=== PATIENT | male | born 1945 | race Caucasian/White ===

== ENCOUNTER 2016-03-23 12:00 | Inpatient (IN) | payer MEDICARE, OTHER ==
[2016-06-22] MEDS ORDERED: Sodium Chloride 0.9% 10 ML Syringe FLUSH PRN (07:00)
[2016-06-22] MEDS ORDERED: Lidocaine 1%/Sod Bicarbonate in NS 8.4% 1 ML Syringe IV PRN (07:00)
[2016-06-22] MEDS ORDERED: Propofol 200 MG/20 ML SDV ONE ×3 (10:26→14:21)
--- NOTE | 2016-06-22 10:47 | PCM.PREANE ---
Preanesthetic Assessment - ANESTHESIA/TRANSFUSION/FAMILY HX Anesthesia/Transfusion History: No Prior Transfusion(s), Prior Anesthesia Type of Anesthesia Reaction: Reports: Other (see below) (severe constipation noted with cystoscopy along with decreased sat's, and pruitis with narcotics.) Family History of Anesthesia Reaction: No Intubation History: Unknown - REVIEW OF SYSTEMS Constitutional: Reports: no symptoms ARTISTS' MODEL: Reports: no symptoms (Lower spine surgery noted.(L1-S1) back.), numbness ( paresthesia's noted to bilateral feet.) Respiratory: Reports: no symptoms (1975 quit smoking.) Cardiovascular: Reports: no symptoms GI: Reports: no symptoms (GERD), difficulty swallowing (Lots of liquids needed with food ingestion.) Other: Reports: none (History of bladder CA, February 2016 cystoscopy/history of left kidney nephrosis, currently cleared by Dr. Martinez.), anxiety (with surgery.) - PHYSICAL ASSESSMENT HR: 66 O2 Sat by Pulse Oximetry: 94 RR: 16 BP: 120/96 Temp: 36.8 C Height: 1.75 m Weight: 108.862 kg NPO Status Date: 06/21/16 NPO Status Time: 21:00 ASA Class: 2 Mental Status: alert & oriented x3 Airway Class: Mallampati = 2 Dentition: Reports: normal dentition, crown(s) (Loose crown noted per patient on upper right.), caries Thyro-Mental Finger Breadths: 3 Mouth Opening Finger Breadths: 3 ROM/Head Extension: full Respiratory Status: lungs clear to auscultation bilaterally Cardiovascular Status: regular rate & rhythm, normal S1, S2, no murmur, blood pressure WNL - LAB Values: Reviewed and noted. - IMAGING/EKG Impressions: EKG: Sinus rhythm with abnormal R-wave progression. CXR: Negative chest except opacity of right mid lung noted. - ALLERGIES Allergies/Adverse Reactions: Allergies Allergy/AdvReac Type Severity Reaction Status Date / Time No Known Allergies Allergy Verified 06/19/16 10:35 - ANESTHESIA PLAN Preop Beta Madelyn: No Anesthesia Type Planned: spinal - ACKNOWLEDGEMENTS Pt an appropriate candidate for the planned anesthesia: Yes Alternatives and risks of anesthesia discussed w pt/guardian: Yes Pt/Guardian understands and agree with anesthesia plan: Yes PreAnesthesia Questionnaire HEENT History: Reports: Hard of hearing, Impaired vision Other HEENT History: wears glasses Musculoskeletal History: Reports: Arthritis Psychiatric History: Reports: PTSD Oncologic (Cancer) History: Reports: Bladder - Infectious Disease History Infectious Disease History: Reports: Chicken pox - Past Surgical History GI Surgical History: Reports: Colonoscopy Musculoskeletal Surgical History: Reports: Shoulder replacement, Other (see below) Other Musculoskeletal Surgeries/Procedures:: back surgery - SUBSTANCE USE Smoking Status *Q: Former Smoker Tobacco Use Within Last Twelve Months: No Second Hand Smoke Exposure: No Days Per Week of Alcohol Use: 3 Recreational Drug Use History: No - HOME MEDS Home Medications: Home Meds Aspirin 81 mg PO DAILY 06/19/16 [History] Fish Oil/[place]-3 Fatty Acids [Fish Oil 1,000 MG] 1 gm PO DAILY 06/19/16 [History ] Glucosamine [Glucosamine Sulfate] 1 cap PO DAILY 06/19/16 [History] Lutein/Minerals/Vit A,C & E [Ocuvite] 1 tab PO DAILY 06/19/16 [History] Multivitamins/Minerals [Vitamins and Minerals] 1 tab PO DAILY 06/19/16 [History] - CURRENT (IN HOUSE) MEDS Current Meds: Current Medications Morphine Sulfate 8 mg/Epinephrine HCl 0.3 mg/Cefuroxime Sodium 750 mg/Ketorolac Tromethamine 30 mg/Sodium Chloride 27.9 ml 0 mg .XX ONETIME ONE Stop: 06/22/16 12:01 Lactated Ringer's (Ringers, Lactated) 1,000 mls @ 125 mls/hr IV ASDIRECTED ANGY Lidocaine/Sodium Bicarbonate (Buffered Lidocaine 1% In Ns 8.4%) 0.25 ml IV ONETIME PRN PRN Reason: Prior to IV Start Sodium Chloride (Saline Flush) 10 ml FLUSH ASDIRECTED PRN PRN Reason: Keep Vein Open Discontinued Medications Propofol (Diprivan 20 Ml) Confirm Administered Dose 200 mg .ROUTE .STK-MED ONE Stop: 06/22/16 10:27
[2016-06-22] MEDS: Lactated Ringers 1,000 ML IV SCH ×2 (10:50→15:50)
[2016-06-22] MEDS ORDERED: ceFAZolin 1 GM Vial ONE ×2 (11:18→11:19)
[2016-06-22] MEDS ORDERED: Morphine PF 10 MG/10 ML SDV ONE (11:18)
[2016-06-22] MEDS ORDERED: Iodine/Sodium Iodide 2% Tincture 30 ML Bottle ONE (11:23)
[2016-06-22] MEDS ORDERED: Midazolam 1 MG/ML 2 ML SDV ONE (12:45)
[2016-06-22] MEDS ORDERED: Ondansetron 4 MG/2 ML SDV ONE ×2 (13:13→14:59)
[2016-06-22] MEDS ORDERED: diphenhydrAMINE 50 MG/ML SDV IVPUSH PRN (13:45)
[2016-06-22] MEDS ORDERED: ePHEDrine 50 MG/ML SDV IVPUSH PRN (13:45)
[2016-06-22] MEDS ORDERED: Ondansetron 4 MG/2 ML SDV IVPUSH PRN ×2 (13:45→15:59)
[2016-06-22] MEDS ORDERED: Lactated Ringers 1,000 ML ONE ×2 (13:53→15:01)
[2016-06-22] MEDS: Bupivacaine 0.25% 30 ML SDV ONE ×2 (13:53→14:27)
[2016-06-22] MEDS: ceFAZolin 1 GM Vial ONE ×2 (13:53→14:24)
[2016-06-22] MEDS: Morphine 8 MG, EPINEPHrine 0.3 MG, Cefuroxime 750 MG, Ketorolac 30 MG, Sodium Chloride ... ONE ×10 (13:55→14:26)
[2016-06-22] MEDS ORDERED: fentaNYL 100 MCG/2 ML SDV IVPUSH PRN (14:45)
[2016-06-22] MEDS ORDERED: HYDROmorphone 0.5 MG/0.5 ML Syringe IVPUSH PRN (14:45)
[2016-06-22] MEDS ORDERED: Phenylephrine/Normal Saline 100 MCG/ML 10 ML Syringe ONE (14:52)
--- NOTE | 2016-06-22 15:21 | PCM.POSTAN ---
POST ANESTHESIA ASSESSMENT - MENTAL STATUS Mental Status: alert, oriented - VITAL SIGNS Pulse Rate: 74 SaO2: 92 Resp Rate: 16 Blood Pressure: 97/67 Temperature: 97.0 F - RESPIRATORY Respiratory Status: respiratory rate WNL, airway patent, O2 saturation stable, supplemental oxygen - CARDIOVASCULAR CV Status: pulse rate WNL, blood pressure stable - GASTROINTESTINAL GI Status: no symptoms - PAIN Pain Score: 0 - POST OP HYDRATION Hydration Status: adequate & stable
[2016-06-22] MEDS ORDERED: Bisacodyl 5 MG Tab PO PRN (15:59)
[2016-06-22] MEDS ORDERED: Morphine 2 MG/ML Syringe IVPUSH PRN (15:59)
[2016-06-22] MEDS ORDERED: Acetaminophen/oxyCODONE 325-5 MG Tab PO PRN (15:59)
[2016-06-22] MEDS ORDERED: Ketorolac 15 MG/ML SDV IVPUSH PRN (15:59)
[2016-06-22] MEDS ORDERED: Naloxone 0.4 MG/ML SDV IVPUSH PRN (15:59)
[2016-06-22] MEDS ORDERED: Magnesium Hydroxide 400 MG/5 ML Susp 30 ML Cup PO PRN (15:59)
[2016-06-22] MEDS ORDERED: Docusate Sodium 100 MG Cap PO PRN (15:59)
[2016-06-22] MEDS ORDERED: Sennosides 8.6 MG Tab PO PRN (15:59)
--- NOTE | 2016-06-22 16:17 | CR ---
Left knee: AP and lateral views of the left knee were obtained. Comparison: No previous knee study. Knee prosthesis is seen. Components are aligned. Underlying bony structures are intact. Soft tissue air and air within the joint is seen compatible with surgical procedure. Impression: 1. Satisfactory postoperative radiographic appearance of recently placed left knee prosthesis. Diagnostic code #2
--- NOTE | 2016-06-22 16:29 | PCM.CONS ---
H&P History of Present Illness - General Date of Service: 06/22/16 Admit Problem/Dx: Admission Diagnosis/Problem Admission Diagnosis/Problem Osteoarthritis of knee Source of Information: Patient, Old records, Provider, RN notes reviewed History Limitations: Reports: Physical impairment - History of Present Illness Initial Comments - Free Text/Narative: This is a 71-year-old, white male, with past medical history of Bladder Cancer, Hx/o Hematuria, OA/DJD and Obesity who underwent left total knee arthroplasty post operative day zero. Patient is doing relatively well. Currently, his pain is controlled. He denies any acute issues. Medicine was consulted for postoperative care. - Related Data Allergies/Adverse Reactions: Allergies Allergy/AdvReac Type Severity Reaction Status Date / Time No Known Allergies Allergy Verified 06/22/16 11:24 Home Medications: Home Meds Aspirin 81 mg PO DAILY 06/19/16 [History] Fish Oil/[place]-3 Fatty Acids [Fish Oil 1,000 MG] 1,000 mg PO DAILY 06/19/16 [ History] Glucosamine [Glucosamine Sulfate] 500 mg PO DAILY 06/19/16 [History] Lutein/Minerals/Vit A,C & E [Ocuvite] 1 tab PO DAILY 06/19/16 [History] Multivitamins/Minerals [Vitamins and Minerals] 1 tab PO DAILY 06/19/16 [History] Iron 64 mg PO DAILY 06/22/16 [History] Past Medical History HEENT History: Reports: Hard of hearing, Impaired vision Other HEENT History: wears glasses Cardiovascular History: Reports: None Respiratory History: Reports: None Gastrointestinal History: Reports: None Genitourinary History: Reports: None Musculoskeletal History: Reports: Arthritis Neurological History: Reports: None Psychiatric History: Reports: PTSD Endocrine/Metabolic History: Reports: None Hematologic History: Reports: None Immunologic History: Reports: None Oncologic (Cancer) History: Reports: Bladder Dermatologic History: Reports: None - Infectious Disease History Infectious Disease History: Reports: Chicken pox - Past Surgical History GI Surgical History: Reports: Colonoscopy Musculoskeletal Surgical History: Reports: Shoulder replacement, Other (see below) Other Musculoskeletal Surgeries/Procedures:: back surgery Social & Family History - Family History Family Medical History: Noncontributory - Tobacco Use Smoking Status *Q: Former Smoker Second Hand Smoke Exposure: No - Caffeine Use Caffeine Use: Reports: Coffee - Alcohol Use Days Per Week of Alcohol Use: 3 - Recreational Drug Use Recreational Drug Use: No Drug Use in Last 12 Months: No H&P Review of Systems - Review of Systems: Review Of Systems: See Below General: Denies: fever, chills, malaise, weakness, fatigue HEENT: Reports: no symptoms Pulmonary: Denies: shortness of breath, cough Cardiovascular: Denies: chest pain, dyspnea on exertion, edema Gastrointestinal: Denies: Abdominal pain, Nausea, Vomiting Genitourinary: Reports: no symptoms Musculoskeletal: Reports: no symptoms Skin: Reports: no symptoms Psychiatric: Denies: depression, anxiety, hallucinations Neurological: Denies: confusion Hematologic/Lymphatic: Reports: no symptoms Immunologic: Reports: no symptoms Exam - Exam Exam: See Below - Vital Signs Vital Signs: Last Vital Signs Temp 37.1 C 06/22/16 16:05 Pulse 72 06/22/16 16:05 Resp 18 06/22/16 16:05 BP 130/79 06/22/16 16:05 Pulse Ox 96 06/22/16 16:05 Weight: 108.862 kg - Exam General: alert, oriented, cooperative, mild distress, sedated, other (Obese) HEENT: Conjunctiva clear, EOMI, Hearing intact, Mucosa moist & pink, Nares patent, Normal nasal septum, Posterior pharynx clear, Pupils equal, Pupils reactive Neck: supple, trachea midline, 2+ carotid pulse wo bruit, full range of motion, other (short and thick) Lungs: Clear to auscultation, Normal respiratory effort Cardiovascular: regular rate, regular rhythm Abdomen: normal bowel sounds, soft, other (Obese). No: organomegaly (Male) Exam: Other (condom catheter) Rectal (Males) Exam: Deferred Back Exam: normal inspection, decreased range of motion Extremities: normal inspection, normal pulses. No: clubbing, cyanosis, calf tenderness, edema Peripheral Pulses: 2+: dorsalis pedis (L), dorsalis pedis (R) Skin: warm, dry, intact Neuro Extensive - Mental Status: oriented x3, normal cognition, memory intact Neuro Extensive - Motor, Sensory, Reflexes: CN II-XII intact (limited but fairly intact), abnormal gait Psychiatric: alert, normal affect, normal mood Consult PN Assessment/Plan POD#: 0 Procedures: Procedures ASSAY OF LIPASE (03/26/16) ASSAY OF MAGNESIUM (03/26/16) COMPLETE CBC W/AUTO DIFF WBC (03/26/16) COMPREHEN METABOLIC PANEL (03/26/16) CT ABD & PELVIS W/O CONTRAST (03/26/16) CULTURE OTHR SPECIMN AEROBIC (10/15/15) EMERGENCY DEPT VISIT (03/26/16) EMERGENCY DEPT VISIT (01/17/16) EMERGENCY DEPT VISIT (02/02/15) IMMUNIZATION ADMIN (02/02/15) INFLUENZA ASSAY W/OPTIC (04/27/14) INSERT TEMP BLADDER CATH (03/26/16) IRRIGATION OF BLADDER (03/26/16) MANUAL THERAPY 1/> REGIONS (06/26/15) METABOLIC PANEL TOTAL CA (03/26/16) MR-STAPH DNA AMP PROBE (06/10/16) MRI JOINT UPR EXTREM W/O DYE (01/08/16) OFFICE/OUTPATIENT VISIT EST (04/27/14) OFFICE/OUTPATIENT VISIT NEW (09/28/13) PT EVALUATION (01/16/15) ROUTINE VENIPUNCTURE (03/26/16) RPR S/N/AX/GEN/TRNK 2.5CM/< (02/02/15) TDAP VACCINE 7 YRS/> IM (02/02/15) THER/PROPH/DIAG INJ IV PUSH (03/26/16) THERAPEUTIC EXERCISES (06/26/15) THROMBOPLASTIN TIME PARTIAL (08/30/14) TX/PRO/DX INJ NEW DRUG ADDON (03/26/16) TX/PRO/DX INJ SAME DRUG SAMPLE TAKER OPERATOR (03/26/16) ULTRASOUND THERAPY (04/24/15) URINALYSIS AUTO W/SCOPE (03/26/16) URINE CULTURE/COLONY COUNT (08/30/14) X-RAY EXAM OF LOWER LEG (09/28/13) X-RAY EXAM OF SKULL (01/08/16) Problem List Initiated/Reviewed/Updated: Yes Plan: Assessment: Acute: Post-Operative Care State - Stable - Continue to monitor for hemodynamic instability S/p Left Total Knee Arthroplasty - Stable - DVT and Pain Management as per primary team Hx/o Chronic Pain 2/2 OA/DJD - Pain Management as per primary team Chronic: Bladder Cancer Obesity with BMI 35.4 Plan: He is clinically stable Routine AM labs Continue home meds PT/OT consult IS q2 awake Thank you for the opportunity to participate in the management of this patient. Requesting Provider: Dr. Doan Date Consult Requested: 06/22/16 Reason for Consult: Post-Operative Care Patient History Reviewed: Yes Admission H&P Reviewed: Yes Consult Result/Summary: Stable
[2016-06-22] MEDS: ceFAZolin 2 GM in Premix Bag 1 BAG IV SCH (20:09)
[2016-06-22] MEDS: Famotidine 20 MG Tab PO SCH (20:10)
[2016-06-23] MEDS: ceFAZolin 2 GM in Premix Bag 1 BAG IV SCH ×2 (04:56→12:24)
--- NOTE | 2016-06-23 06:51 | PCM.CONSN ---
- General Info Date of Service: 06/23/16 Admission Dx/Problem (Free Text): Admission Diagnosis/Problem Admission Diagnosis/Problem Osteoarthritis of knee Subjective Update: Follow Up Functional Status: Reports: pain controlled, tolerating diet, ambulating, urinating. Denies: new symptoms - Review of Systems General: Denies: fever, weakness, fatigue, malaise, chills HEENT: Reports: no symptoms Pulmonary: Denies: shortness of breath Cardiovascular: Denies: chest pain, palpitations, dyspnea on exertion, edema Gastrointestinal: Denies: Abdominal pain, Nausea, Vomiting Genitourinary: Reports: no symptoms Musculoskeletal: Reports: no symptoms Skin: Denies: cyanosis, bruising, pruritis, rash Neurological: Denies: confusion, dizziness Psychiatric: Denies: depression, anxiety Systems Review Comment:: No overnight or acute issues. His pain is controlled. He has no new complaints. - Patient Data Vitals - most recent: Last Vital Signs Temp 36.9 C 06/23/16 03:44 Pulse 72 06/23/16 03:44 Resp 19 06/23/16 03:44 BP 102/66 06/23/16 03:44 Pulse Ox 97 06/23/16 03:44 Weight - most recent: 115.666 kg I&O - last 24 hours: Intake & Output 06/22/16 06/22/16 06/23/16 14:59 22:59 06:59 Intake Total 520 2100 Output Total 280 830 Balance 240 1270 Med Orders - Current: Current Medications Aspirin (Aspirin) 81 mg PO DAILY [facility] Bisacodyl (Dulcolax) 10 mg PO DAILY PRN PRN Reason: Constipation Docusate Sodium (Colace) 100 mg PO BID PRN PRN Reason: Constipation Famotidine (Pepcid) 20 mg PO Q12H [facility] Last Admin: 06/22/16 20:10 Dose: Not Given Cefazolin Sodium/Dextrose 2 gm (/ Premix) 50 mls @ 100 mls/hr IV Q8H [facility] Stop: 06/23/16 12:29 Last Admin: 06/23/16 04:56 Dose: 100 mls/hr Ketorolac Tromethamine (Toradol) 15 mg IVPUSH Q8H PRN PRN Reason: Pain Magnesium Hydroxide (Milk Of Magnesia) 30 ml PO BID PRN PRN Reason: Constipation Morphine Sulfate (Morphine) 2 mg IVPUSH Q2H PRN PRN Reason: Breakthrough Pain Non-Formulary Medication (Iron [Iron]) 64 mg PO DAILY [facility] Ondansetron HCl (Zofran) 4 mg IVPUSH Q6H PRN PRN Reason: Nausea/Vomiting Oxycodone/Acetaminophen (Percocet 325-5 Mg) 2 tab PO Q4H PRN PRN Reason: Pain Rivaroxaban (Xarelto) 10 mg PO DAILY [facility] Senna (Senna) 8.6 mg PO BID PRN PRN Reason: Constipation Vit A/Vit C/Vit E/Selen/Cu/Zn/Lutei (Icaps Mv) 1 tab PO DAILY ANGY Discontinued Medications Bupivacaine HCl (Marcaine 0.25%) Confirm Administered Dose 30 ml .ROUTE .STK- MED ONE Stop: 06/22/16 11:24 Last Admin: 06/22/16 14:27 Dose: 30 ml Cefazolin Sodium (Ancef) Confirm Administered Dose 1 gm .ROUTE .STK-MED ONE Stop: 06/22/16 11:19 Cefazolin Sodium (Ancef) Confirm Administered Dose 1 gm .ROUTE .STK-MED ONE Stop: 06/22/16 11:20 Cefazolin Sodium (Ancef) Confirm Administered Dose 2 gm .ROUTE .STK-MED ONE Stop: 06/22/16 11:24 Last Admin: 06/22/16 14:24 Dose: 2 gm Morphine Sulfate 8 mg/Epinephrine HCl 0.3 mg/Cefuroxime Sodium 750 mg/Ketorolac Tromethamine 30 mg/Sodium Chloride 27.9 ml 0 mg .XX ONETIME ONE Stop: 06/22/16 12:01 Last Admin: 06/22/16 14:26 Dose: 788.3 mg Diphenhydramine HCl (Benadryl) 25 mg IVPUSH Q6H PRN PRN Reason: pruritis Stop: 06/22/16 23:00 Last Admin: 06/22/16 20:10 Dose: 25 mg Ephedrine Sulfate (Ephedrine Sulfate) 5 mg IVPUSH ASDIRECTED PRN PRN Reason: Hypotension Stop: 06/22/16 23:00 Fentanyl (Sublimaze) 50 mcg IVPUSH Q5M PRN PRN Reason: Pain Stop: 06/22/16 15:01 Hydromorphone HCl (Dilaudid) 0.5 mg IVPUSH Q15M PRN PRN Reason: severe pain Stop: 06/22/16 15:01 Lactated Ringer's (Ringers, Lactated) 1,000 mls @ 125 mls/hr IV ASDIRECTED ANGY Stop: 06/22/16 23:00 Last Admin: 06/22/16 15:50 Dose: 125 mls/hr Lactated Ringer's (Ringers, Lactated) Confirm Administered Dose 1,000 mls @ as directed .ROUTE .STK-MED ONE Stop: 06/22/16 13:54 Lactated Ringer's (Ringers, Lactated) Confirm Administered Dose 1,000 mls @ as directed .ROUTE .STK-MED ONE Stop: 06/22/16 15:02 Iodine (Iodine 2% Mild Tincture) Confirm Administered Dose 30 ml .ROUTE .STK- MED ONE Stop: 06/22/16 11:24 Last Admin: 06/22/16 14:24 Dose: 18 ml Lidocaine/Sodium Bicarbonate (Buffered Lidocaine 1% In Ns 8.4%) 0.25 ml IV ONETIME PRN PRN Reason: Prior to IV Start Stop: 06/22/16 18:00 Last Admin: 06/22/16 10:50 Dose: 0.25 ml Midazolam HCl (Versed 1 Mg/Ml) Confirm Administered Dose 2 mg .ROUTE .STK-MED ONE Stop: 06/22/16 12:46 Morphine Sulfate (Duramorph Pf) Confirm Administered Dose 10 mg .ROUTE .STK-MED ONE Stop: 06/22/16 11:19 Naloxone HCl (Narcan) 0.1 mg IVPUSH Q5M PRN PRN Reason: Oversedation Stop: 06/22/16 16:15 Ondansetron HCl (Zofran) Confirm Administered Dose 4 mg .ROUTE .STK-MED ONE Stop: 06/22/16 13:14 Ondansetron HCl (Zofran) 4 mg IVPUSH ONETIME PRN PRN Reason: Nausea/Vomiting Stop: 06/22/16 23:00 Ondansetron HCl (Zofran) Confirm Administered Dose 4 mg .ROUTE .STK-MED ONE Stop: 06/22/16 15:00 Phenylephrine HCl (Phenylephrine In Ns 100 Mcg/Ml) Confirm Administered Dose 1 mg .ROUTE .STK-MED ONE Stop: 06/22/16 14:53 Propofol (Diprivan 20 Ml) Confirm Administered Dose 200 mg .ROUTE .STK-MED ONE Stop: 06/22/16 10:27 Propofol (Diprivan 20 Ml) Confirm Administered Dose 200 mg .ROUTE .STK-MED ONE Stop: 06/22/16 13:42 Propofol (Diprivan 20 Ml) Confirm Administered Dose 200 mg .ROUTE .STK-MED ONE Stop: 06/22/16 14:22 Sodium Chloride (Saline Flush) 10 ml FLUSH ASDIRECTED PRN PRN Reason: Keep Vein Open Stop: 06/22/16 18:00 Tranexamic Acid (Cyklokapron) Confirm Administered Dose 1,000 mg .ROUTE .STK- MED ONE Stop: 06/22/16 11:23 Last Admin: 06/22/16 13:53 Dose: 1,000 mg - Exam General: alert, oriented, cooperative, no acute distress, other (Obese) HEENT: Pupils equal, Pupils reactive, EOMI, Mucous membr. moist/pink Neck: supple, trachea midline, no JVD, no thyromegaly Lungs: Clear to auscultation, Normal respiratory effort Cardiovascular: regular rate, regular rhythm Abdomen: bowel sounds present, soft, no tenderness, other (Obese) (Male) Exam: Deferred Back Exam: normal inspection, decreased range of motion Extremities: no edema, normal pulses, no tenderness/swelling, no clubbing, no cyanosis, no calf tenderness Peripheral Pulses: 2+: dorsalis pedis (L), dorsalis pedis (R) Skin: warm, dry, intact Wound/Incisions: healing well, dressing dry and intact, no drainage Neurological: no new focal deficit Psy/Mental Status: alert, normal affect, normal mood Consult PN Assessment/Plan POD#: 1 Procedures: Procedures ASSAY OF LIPASE (03/26/16) ASSAY OF MAGNESIUM (03/26/16) COMPLETE CBC W/AUTO DIFF WBC (03/26/16) COMPREHEN METABOLIC PANEL (03/26/16) CT ABD & PELVIS W/O CONTRAST (03/26/16) CULTURE OTHR SPECIMN AEROBIC (10/15/15) EMERGENCY DEPT VISIT (03/26/16) EMERGENCY DEPT VISIT (01/17/16) EMERGENCY DEPT VISIT (02/02/15) IMMUNIZATION ADMIN (02/02/15) INFLUENZA ASSAY W/OPTIC (04/27/14) INSERT TEMP BLADDER CATH (03/26/16) IRRIGATION OF BLADDER (03/26/16) MANUAL THERAPY 1/> REGIONS (06/26/15) METABOLIC PANEL TOTAL CA (03/26/16) MR-STAPH DNA AMP PROBE (06/10/16) MRI JOINT UPR EXTREM W/O DYE (01/08/16) OFFICE/OUTPATIENT VISIT EST (04/27/14) OFFICE/OUTPATIENT VISIT NEW (09/28/13) PT EVALUATION (01/16/15) ROUTINE VENIPUNCTURE (03/26/16) RPR S/N/AX/GEN/TRNK 2.5CM/< (02/02/15) TDAP VACCINE 7 YRS/> IM (02/02/15) THER/PROPH/DIAG INJ IV PUSH (03/26/16) THERAPEUTIC EXERCISES (06/26/15) THROMBOPLASTIN TIME PARTIAL (08/30/14) TX/PRO/DX INJ NEW DRUG ADDON (03/26/16) TX/PRO/DX INJ SAME DRUG PLATING OPERATOR (03/26/16) ULTRASOUND THERAPY (04/24/15) URINALYSIS AUTO W/SCOPE (03/26/16) URINE CULTURE/COLONY COUNT (08/30/14) X-RAY EXAM OF LOWER LEG (09/28/13) X-RAY EXAM OF SKULL (01/08/16) Problem List Initiated/Reviewed/Updated: Yes Plan: Assessment: Acute: Post-Operative Care State - Stable - Continue to monitor for hemodynamic instability S/p Left Total Knee Arthroplasty - Stable - DVT and Pain Management as per primary team Hx/o Chronic Pain 2/2 OA/DJD - Pain Management as per primary team Chronic: Bladder Cancer Obesity with BMI 37.7 Plan: He is clinically stable Routine AM labs Continue home meds, PT/OT, and IS q2 awake We have no additional recommendations at this time
[2016-06-23] MEDS ORDERED: diphenhydrAMINE 50 MG/ML SDV IVPUSH PRN (08:16)
--- NOTE | 2016-06-23 08:17 | PCM48HPAN ---
Post Anesthesia Note - EVALUATION WITHIN 48HRS OF ANESTHETIC Vital Signs in Normal Range: Yes Patient Participated in Evaluation: Yes Respiratory Function Stable: Yes Airway Patent: Yes Cardiovascular Function Stable: Yes Hydration Status Stable: Yes Pain Control Satisfactory: Yes Nausea and Vomiting Control Satisfactory: Yes Mental Status Recovered: Yes - COMMENTS/OBSERVATIONS Free Text/Narrative:: C/o puritis, ordered another dose of benadryl.
[2016-06-23] MEDS: Famotidine 20 MG Tab PO SCH (08:34)
[2016-06-23] MEDS ORDERED: Rivaroxaban 10 MG Tab PO SCH (09:00)
[2016-06-23] MEDS ORDERED: Multivitamins with Minerals/Folic Acid/Lutein/Zeaxanth Tab PO SCH (09:00)
[2016-06-23] MEDS ORDERED: Aspirin 81 MG Tab.Chew PO SCH (09:00)
[2016-06-23] MEDS ORDERED: IRON PO SCH (09:00)
--- NOTE | 2016-06-23 17:35 | PCM.SURGPN ---
- General Info Date of Service: 06/23/16 POD#: 1 Functional Status: Reports: pain controlled, tolerating diet, ambulating, urinating. Denies: new symptoms - Review of Systems Musculoskeletal: Reports: other (The pt progressed well with therapy today and feels prepared for discharge to home.) - Patient Data Vitals - most recent: Last Vital Signs Temp 98.6 F 06/23/16 12:13 Pulse 83 06/23/16 12:13 Resp 16 06/23/16 12:13 BP 109/72 06/23/16 12:13 Pulse Ox 96 06/23/16 12:13 Weight - most recent: 255 lb I&O - last 24 hours: Intake & Output 06/23/16 06/23/16 06/23/16 06:59 14:59 22:59 Intake Total 2100 240 220 Output Total 830 Balance 1270 240 220 Lab Results last 24 hrs: Laboratory Results - last 24 hr 06/23/16 06/23/16 Range/Units 06:36 06:36 WBC 6.44 (4.23-9.07) K/mm3 RBC 3.71 L (4.63-6.08) M/mm3 Hgb 11.4 L (13.7-17.5) gm/L Hct 34.3 L (40.1-51.0) % MCV 92.5 H (79.0-92.2) fl MCH 30.7 (25.7-32.2) pg MCHC 33.2 (32.2-35.5) g/dl RDW Std Deviation 43.9 (35.1-43.9) fL Plt Count 148 L (163-337) K/mm3 MPV 8.8 L (9.4-12.3) fl Neut % (Auto) 63.6 (34.0-67.9) % Lymph % (Auto) 20.5 L (21.8-53.1) % [place] % (Auto) 14.0 H (5.3-12.2) % Eos % (Auto) 1.7 (0.8-7.0) Baso % (Auto) 0.2 (0.1-1.2) % Neut # 4.10 (1.78-5.38) K/mm3 Lymph # 1.32 (1.32-3.57) K/mm3 [place] # 0.90 H (0.30-0.82) K/mm3 Eos # 0.11 (0.04-0.54) K/mm3 Baso # 0.01 (0.01-0.08) K/mm3 Sodium 138 (136-145) mEq/L Potassium 3.8 (3.5-5.1) mEq/L Chloride 102 (98-107) mEq/L Carbon Dioxide 29 (21-32) mEq/L Anion Gap 10.8 (5-15) BUN 18 (7-18) mg/dL Creatinine 1.0 (0.7-1.3) mg/dL Est Cr Clr Drug Dosing 68.74 mL/min Estimated GFR (MDRD) > 60 (>60) mL/min BUN/Creatinine Ratio 18.0 (14-18) Glucose 93 (80-115) mg/dL Calcium 8.4 L (8.5-10.1) mg/dL Total Bilirubin 0.5 (0.2-1.0) mg/dL AST 20 (15-37) U/L ALT 24 (16-63) U/L Alkaline Phosphatase 40 L (46-116) U/L Total Protein 5.8 L (6.4-8.2) g/dl Albumin 3.2 L (3.4-5.0) g/dl Globulin 2.6 gm/dL Albumin/Globulin Ratio 1.2 (1-2) Med Orders - Current: Current Medications Aspirin (Aspirin) 81 mg PO DAILY [facility] Last Admin: 06/23/16 08:33 Dose: 81 mg Bisacodyl (Dulcolax) 10 mg PO DAILY PRN PRN Reason: Constipation Diphenhydramine HCl (Benadryl) 25 mg IVPUSH Q6H PRN PRN Reason: Itching Stop: 06/23/16 18:00 Last Admin: 06/23/16 08:34 Dose: 25 mg Docusate Sodium (Colace) 100 mg PO BID PRN PRN Reason: Constipation Famotidine (Pepcid) 20 mg PO Q12H [facility] Last Admin: 06/23/16 08:34 Dose: Not Given Ketorolac Tromethamine (Toradol) 15 mg IVPUSH Q8H PRN PRN Reason: Pain Stop: 06/26/16 16:00 Last Admin: 06/23/16 09:30 Dose: 15 mg Magnesium Hydroxide (Milk Of Magnesia) 30 ml PO BID PRN PRN Reason: Constipation Morphine Sulfate (Morphine) 2 mg IVPUSH Q2H PRN PRN Reason: Breakthrough Pain Ondansetron HCl (Zofran) 4 mg IVPUSH Q6H PRN PRN Reason: Nausea/Vomiting Oxycodone/Acetaminophen (Percocet 325-5 Mg) 2 tab PO Q4H PRN PRN Reason: Pain Last Admin: 06/23/16 17:26 Dose: 2 tab Iron [Iron] 64 Mg 0 each PO DAILY [facility] Last Admin: 06/23/16 08:34 Dose: Not Given Rivaroxaban (Xarelto) 10 mg PO DAILY [facility] Last Admin: 06/23/16 12:23 Dose: 10 mg Senna (Senna) 8.6 mg PO BID PRN PRN Reason: Constipation Vit A/Vit C/Vit E/Selen/Cu/Zn/Lutei (Icaps Mv) 1 tab PO DAILY [facility] Last Admin: 06/23/16 08:34 Dose: 1 tab Discontinued Medications Bupivacaine HCl (Marcaine 0.25%) Confirm Administered Dose 30 ml .ROUTE .STK- MED ONE Stop: 06/22/16 11:24 Last Admin: 06/22/16 14:27 Dose: 30 ml Cefazolin Sodium (Ancef) Confirm Administered Dose 1 gm .ROUTE .STK-MED ONE Stop: 06/22/16 11:19 Cefazolin Sodium (Ancef) Confirm Administered Dose 1 gm .ROUTE .STK-MED ONE Stop: 06/22/16 11:20 Cefazolin Sodium (Ancef) Confirm Administered Dose 2 gm .ROUTE .STK-MED ONE Stop: 06/22/16 11:24 Last Admin: 06/22/16 14:24 Dose: 2 gm Morphine Sulfate 8 mg/Epinephrine HCl 0.3 mg/Cefuroxime Sodium 750 mg/Ketorolac Tromethamine 30 mg/Sodium Chloride 27.9 ml 0 mg .XX ONETIME ONE Stop: 06/22/16 12:01 Last Admin: 06/22/16 14:26 Dose: 788.3 mg Diphenhydramine HCl (Benadryl) 25 mg IVPUSH Q6H PRN PRN Reason: pruritis Stop: 06/22/16 23:00 Last Admin: 06/22/16 20:10 Dose: 25 mg Ephedrine Sulfate (Ephedrine Sulfate) 5 mg IVPUSH ASDIRECTED PRN PRN Reason: Hypotension Stop: 06/22/16 23:00 Fentanyl (Sublimaze) 50 mcg IVPUSH Q5M PRN PRN Reason: Pain Stop: 06/22/16 15:01 Hydromorphone HCl (Dilaudid) 0.5 mg IVPUSH Q15M PRN PRN Reason: severe pain Stop: 06/22/16 15:01 Lactated Ringer's (Ringers, Lactated) 1,000 mls @ 125 mls/hr IV ASDIRECTED ANGY Stop: 06/22/16 23:00 Last Admin: 06/22/16 15:50 Dose: 125 mls/hr Lactated Ringer's (Ringers, Lactated) Confirm Administered Dose 1,000 mls @ as directed .ROUTE .STK-MED ONE Stop: 06/22/16 13:54 Lactated Ringer's (Ringers, Lactated) Confirm Administered Dose 1,000 mls @ as directed .ROUTE .STK-MED ONE Stop: 06/22/16 15:02 Cefazolin Sodium/Dextrose 2 gm (/ Premix) 50 mls @ 100 mls/hr IV Q8H [facility] Stop: 06/23/16 12:29 Last Admin: 06/23/16 12:24 Dose: 100 mls/hr Iodine (Iodine 2% Mild Tincture) Confirm Administered Dose 30 ml .ROUTE .STK- MED ONE Stop: 06/22/16 11:24 Last Admin: 06/22/16 14:24 Dose: 18 ml Lidocaine/Sodium Bicarbonate (Buffered Lidocaine 1% In Ns 8.4%) 0.25 ml IV ONETIME PRN PRN Reason: Prior to IV Start Stop: 06/22/16 18:00 Last Admin: 06/22/16 10:50 Dose: 0.25 ml Midazolam HCl (Versed 1 Mg/Ml) Confirm Administered Dose 2 mg .ROUTE .STK-MED ONE Stop: 06/22/16 12:46 Morphine Sulfate (Duramorph Pf) Confirm Administered Dose 10 mg .ROUTE .STK-MED ONE Stop: 06/22/16 11:19 Naloxone HCl (Narcan) 0.1 mg IVPUSH Q5M PRN PRN Reason: Oversedation Stop: 06/22/16 16:15 Ondansetron HCl (Zofran) Confirm Administered Dose 4 mg .ROUTE .STK-MED ONE Stop: 06/22/16 13:14 Ondansetron HCl (Zofran) 4 mg IVPUSH ONETIME PRN PRN Reason: Nausea/Vomiting Stop: 06/22/16 23:00 Ondansetron HCl (Zofran) Confirm Administered Dose 4 mg .ROUTE .STK-MED ONE Stop: 06/22/16 15:00 Phenylephrine HCl (Phenylephrine In Ns 100 Mcg/Ml) Confirm Administered Dose 1 mg .ROUTE .STK-MED ONE Stop: 06/22/16 14:53 Propofol (Diprivan 20 Ml) Confirm Administered Dose 200 mg .ROUTE .STK-MED ONE Stop: 06/22/16 10:27 Propofol (Diprivan 20 Ml) Confirm Administered Dose 200 mg .ROUTE .STK-MED ONE Stop: 06/22/16 13:42 Propofol (Diprivan 20 Ml) Confirm Administered Dose 200 mg .ROUTE .STK-MED ONE Stop: 06/22/16 14:22 Sodium Chloride (Saline Flush) 10 ml FLUSH ASDIRECTED PRN PRN Reason: Keep Vein Open Stop: 06/22/16 18:00 Tranexamic Acid (Cyklokapron) Confirm Administered Dose 1,000 mg .ROUTE .STK- MED ONE Stop: 06/22/16 11:23 Last Admin: 06/22/16 13:53 Dose: 1,000 mg - Exam Wound/Incisions: dressing dry and intact General: alert, cooperative, no acute distress Lungs: Normal respiratory effort Extremities: normal pulses, no calf tenderness, other (NVS intact for BLE. Dai's negative. Near independent SLR left.) - Problem List Review Problem List Initiated/Reviewed/Updated: Yes - My Orders Last 24 Hours: Active Orders 24 hr Category Date Time Status Ready for Discharge [RC] PER UNIT ROUTINE Care 06/23/16 12:29 Active Regular Diet [DIET] Diet 06/22/16 Dinner Active Aspirin Med 06/23/16 09:00 Active 81 mg PO DAILY Famotidine [Pepcid] Med 06/22/16 21:00 Active 20 mg PO Q12H Multivitamins/Min/FA/Lut/Zeax [ICaps MV] Med 06/23/16 09:00 Active 1 tab PO DAILY Patient's Own Medication [Ptom] Med 06/23/16 09:00 Active 0 each PO DAILY Rivaroxaban [Xarelto] Med 06/23/16 09:00 Active 10 mg PO DAILY diphenhydrAMINE [Benadryl] Med 06/23/16 08:16 Active 25 mg IVPUSH Q6H PRN Medication Orders Aspirin (Aspirin) 81 mg PO DAILY [facility] Last Admin: 06/23/16 08:33 Dose: 81 mg Bisacodyl (Dulcolax) 10 mg PO DAILY PRN PRN Reason: Constipation Diphenhydramine HCl (Benadryl) 25 mg IVPUSH Q6H PRN PRN Reason: Itching Stop: 06/23/16 18:00 Last Admin: 06/23/16 08:34 Dose: 25 mg Docusate Sodium (Colace) 100 mg PO BID PRN PRN Reason: Constipation Famotidine (Pepcid) 20 mg PO Q12H [facility] Last Admin: 06/23/16 08:34 Dose: Not Given Admin: 06/22/16 20:10 Dose: Not Given Ketorolac Tromethamine (Toradol) 15 mg IVPUSH Q8H PRN PRN Reason: Pain Stop: 06/26/16 16:00 Last Admin: 06/23/16 09:30 Dose: 15 mg Magnesium Hydroxide (Milk Of Magnesia) 30 ml PO BID PRN PRN Reason: Constipation Morphine Sulfate (Morphine) 2 mg IVPUSH Q2H PRN PRN Reason: Breakthrough Pain Ondansetron HCl (Zofran) 4 mg IVPUSH Q6H PRN PRN Reason: Nausea/Vomiting Oxycodone/Acetaminophen (Percocet 325-5 Mg) 2 tab PO Q4H PRN PRN Reason: Pain Last Admin: 06/23/16 17:26 Dose: 2 tab Iron [Iron] 64 Mg 0 each PO DAILY [facility] Last Admin: 06/23/16 08:34 Dose: Not Given Rivaroxaban (Xarelto) 10 mg PO DAILY [facility] Last Admin: 06/23/16 12:23 Dose: 10 mg Senna (Senna) 8.6 mg PO BID PRN PRN Reason: Constipation Vit A/Vit C/Vit E/Selen/Cu/Zn/Lutei (Icaps Mv) 1 tab PO DAILY [facility] Last Admin: 06/23/16 08:34 Dose: 1 tab - Assessment Assessment (Free Text/Narrative):: POD#1 - left TKA - Plan Plan (Free Text/Narrative):: 1. Discharge to home today. 2. Hgb 11.4. 3. Xarelto, frequent mobility, TEDs. The pt's case was discussed with Dr. Doan today.
[2016-06-23 18:19] VITALS: BP 117/75
--- NOTE | 2016-06-26 06:50 | PCM.DCSUM1 ---
Discharge Summary - Hospital Course Brief History: Elier is a 71 yo male who underwent left TKA with Dr. Doan on . The procedure was completed under spinal anesthesia. The pt tolerated the procedure well and was admitted to the Medical-Surgical Unit. Medical management was provided by the Hospitalist service. The pt's Hospital course was uneventful. The pt received pedro-operative IV antibiotics. The pt' s Hgb on POD#1 was 11.4. On POD#1, Xarelto was initiated for VTE prophylaxis. A Mepilex dressing was placed at the incision site at the time of surgery and remained clean and dry. The pt participated in P.T. and O.T. and progressed well. The pt was allowed to WBAT. On POD#1, the pt was deemed appropriate to discharge to home with his . - Discharge Data Discharge Date: 06/23/16 Discharge Disposition: Home, Self-Care 01 Condition: Good - Patient Summary/Data Consults: Consultations 06/22/16 15:59 Consult to Case Management [CONS] Routine Consult to Physician [CONS] Routine OT Evaluation and Treatment [CONS] Routine 06/22/16 16:03 PT Evaluation and Treatment [CONS] Routine - Patient Instructions Diet: Usual Diet as Tolerated Activity: Apply Ice, As Tolerated, Elevate Extremity, Full Weight Bearing Driving: Do Not Drive Showering/Bathing: May Shower Wound/Incision Care: Keep Operative Site/Wound Site Clean and Dry, Do NOT Change Dressing Notify Provider of: Fever, Increased Pain, Swelling and Redness, Drainage, Nausea and/or Vomiting Other/Special Instructions: Please get up and moving around every hour while awake. Please use your walker and have help as needed. Take the blood thinner medication - Xarelto - daily. Do the exercises you were taught in the Hospital. Schedule for P.T. Use the pain medication as needed. The medication may cause drowsiness and constipation. Contact your primary care provider for instructions if you are constipated. You may use a stool softener like docusate sodium or Colace 100mg twice daily and/or a laxative like polyethylene glycol or Miralax daily for constipation. Use the ice machine often. Elevate the limb to decrease swelling. Keep the Mepilex dressing in place until follow-up at the Clinic. Notify the Clinic if the dressing is saturated. Wear the ROCKY hose during the day and you may remove these at night. Schedule an appointment with your primary care provider for 'routine post-op care'. Call the Clinic with questions or concerns - [phone]. - Discharge Plan Prescriptions/Med Rec: Acetaminophen/oxyCODONE [Percocet 325-5 MG] 1 - 2 tab PO Q4H PRN #60 tablet PRN Reason: Pain Rivaroxaban [Xarelto] 10 mg PO DAILY #13 tablet Home Medications: Home Meds Aspirin 81 mg PO DAILY 06/19/16 [History] Fish Oil/[place]-3 Fatty Acids [Fish Oil 1,000 MG] 1,000 mg PO DAILY 06/19/16 [ History] Glucosamine [Glucosamine Sulfate] 500 mg PO DAILY 06/19/16 [History] Lutein/Minerals/Vit A,C & E [Ocuvite] 1 tab PO DAILY 06/19/16 [History] Multivitamins/Minerals [Vitamins and Minerals] 1 tab PO DAILY 06/19/16 [History] Iron 64 mg PO DAILY 06/22/16 [History] Acetaminophen/oxyCODONE [Percocet 325-5 MG] 1 - 2 tab PO Q4H PRN #60 tablet [Rx] Bisacodyl [Dulcolax] 10 mg PO DAILY PRN #0 tablet 06/23/16 [Rx] Docusate Sodium [Colace] 100 mg PO BID PRN #0 cap 06/23/16 [Rx] Famotidine [Pepcid] 20 mg PO Q12H tablet 06/23/16 [Rx] Magnesium Hydroxide [Milk of Magnesia] 30 ml PO BID PRN #0 cup 06/23/16 [Rx] Rivaroxaban [Xarelto] 10 mg PO DAILY #13 tablet 06/23/16 [Rx] Sennosides [Senna] 8.6 mg PO BID PRN #0 tablet 06/23/16 [Rx] Patient Handouts: Rivaroxaban oral tablets, Total Knee Replacement, Care After , [id number], Total Knee Replacement, [id number], Knee Rehabilitation Guidelines Following Surgery Referrals: Ivory Stone PA-C [Physician Lithograph Press Feeder] - (please see Ivory Stone on at 1:00 PM.) Garfield Malone MD [Primary Care Provider] - (Please see Dr. Malone at [facility] on Wednesday06/29/16 at 2:30 PM.) - Patient Data Vitals - Most Recent: Last Vital Signs Temp 99.7 F 06/23/16 18:30 Pulse 93 06/23/16 16:22 Resp 18 06/23/16 16:22 BP 117/75 06/23/16 16:22 Pulse Ox 97 06/23/16 16:22 Weight - Most Recent: 255 lb Med Orders - Current: Current Medications Discontinued Medications Aspirin (Aspirin) 81 mg PO DAILY [facility] Last Admin: 06/23/16 08:33 Dose: 81 mg Bisacodyl (Dulcolax) 10 mg PO DAILY PRN PRN Reason: Constipation Bupivacaine HCl (Marcaine 0.25%) Confirm Administered Dose 30 ml .ROUTE .STK- MED ONE Stop: 06/22/16 11:24 Last Admin: 06/22/16 14:27 Dose: 30 ml Cefazolin Sodium (Ancef) Confirm Administered Dose 1 gm .ROUTE .STK-MED ONE Stop: 06/22/16 11:19 Cefazolin Sodium (Ancef) Confirm Administered Dose 1 gm .ROUTE .STK-MED ONE Stop: 06/22/16 11:20 Cefazolin Sodium (Ancef) Confirm Administered Dose 2 gm .ROUTE .STK-MED ONE Stop: 06/22/16 11:24 Last Admin: 06/22/16 14:24 Dose: 2 gm Morphine Sulfate 8 mg/Epinephrine HCl 0.3 mg/Cefuroxime Sodium 750 mg/Ketorolac Tromethamine 30 mg/Sodium Chloride 27.9 ml 0 mg .XX ONETIME ONE Stop: 06/22/16 12:01 Last Admin: 06/22/16 14:26 Dose: 788.3 mg Diphenhydramine HCl (Benadryl) 25 mg IVPUSH Q6H PRN PRN Reason: pruritis Stop: 06/22/16 23:00 Last Admin: 06/22/16 20:10 Dose: 25 mg Diphenhydramine HCl (Benadryl) 25 mg IVPUSH Q6H PRN PRN Reason: Itching Stop: 06/23/16 18:00 Last Admin: 06/23/16 08:34 Dose: 25 mg Docusate Sodium (Colace) 100 mg PO BID PRN PRN Reason: Constipation Ephedrine Sulfate (Ephedrine Sulfate) 5 mg IVPUSH ASDIRECTED PRN PRN Reason: Hypotension Stop: 06/22/16 23:00 Famotidine (Pepcid) 20 mg PO Q12H [facility] Last Admin: 06/23/16 08:34 Dose: Not Given Fentanyl (Sublimaze) 50 mcg IVPUSH Q5M PRN PRN Reason: Pain Stop: 06/22/16 15:01 Hydromorphone HCl (Dilaudid) 0.5 mg IVPUSH Q15M PRN PRN Reason: severe pain Stop: 06/22/16 15:01 Lactated Ringer's (Ringers, Lactated) 1,000 mls @ 125 mls/hr IV ASDIRECTED [facility] Stop: 06/22/16 23:00 Last Admin: 06/22/16 15:50 Dose: 125 mls/hr Lactated Ringer's (Ringers, Lactated) Confirm Administered Dose 1,000 mls @ as directed .ROUTE .STK-MED ONE Stop: 06/22/16 13:54 Lactated Ringer's (Ringers, Lactated) Confirm Administered Dose 1,000 mls @ as directed .ROUTE .STK-MED ONE Stop: 06/22/16 15:02 Cefazolin Sodium/Dextrose 2 gm (/ Premix) 50 mls @ 100 mls/hr IV Q8H [facility] Stop: 06/23/16 12:29 Last Admin: 06/23/16 12:24 Dose: 100 mls/hr Iodine (Iodine 2% Mild Tincture) Confirm Administered Dose 30 ml .ROUTE .STK- MED ONE Stop: 06/22/16 11:24 Last Admin: 06/22/16 14:24 Dose: 18 ml Ketorolac Tromethamine (Toradol) 15 mg IVPUSH Q8H PRN PRN Reason: Pain Stop: 06/26/16 16:00 Last Admin: 06/23/16 09:30 Dose: 15 mg Lidocaine/Sodium Bicarbonate (Buffered Lidocaine 1% In Ns 8.4%) 0.25 ml IV ONETIME PRN PRN Reason: Prior to IV Start Stop: 06/22/16 18:00 Last Admin: 06/22/16 10:50 Dose: 0.25 ml Magnesium Hydroxide (Milk Of Magnesia) 30 ml PO BID PRN PRN Reason: Constipation Midazolam HCl (Versed 1 Mg/Ml) Confirm Administered Dose 2 mg .ROUTE .STK-MED ONE Stop: 06/22/16 12:46 Morphine Sulfate (Duramorph Pf) Confirm Administered Dose 10 mg .ROUTE .STK-MED ONE Stop: 06/22/16 11:19 Morphine Sulfate (Morphine) 2 mg IVPUSH Q2H PRN PRN Reason: Breakthrough Pain Naloxone HCl (Narcan) 0.1 mg IVPUSH Q5M PRN PRN Reason: Oversedation Stop: 06/22/16 16:15 Ondansetron HCl (Zofran) Confirm Administered Dose 4 mg .ROUTE .STK-MED ONE Stop: 06/22/16 13:14 Ondansetron HCl (Zofran) 4 mg IVPUSH ONETIME PRN PRN Reason: Nausea/Vomiting Stop: 06/22/16 23:00 Ondansetron HCl (Zofran) Confirm Administered Dose 4 mg .ROUTE .STK-MED ONE Stop: 06/22/16 15:00 Ondansetron HCl (Zofran) 4 mg IVPUSH Q6H PRN PRN Reason: Nausea/Vomiting Oxycodone/Acetaminophen (Percocet 325-5 Mg) 2 tab PO Q4H PRN PRN Reason: Pain Last Admin: 06/23/16 17:26 Dose: 2 tab Iron [Iron] 64 Mg 0 each PO DAILY [facility] Last Admin: 06/23/16 08:34 Dose: Not Given Phenylephrine HCl (Phenylephrine In Ns 100 Mcg/Ml) Confirm Administered Dose 1 mg .ROUTE .STK-MED ONE Stop: 06/22/16 14:53 Propofol (Diprivan 20 Ml) Confirm Administered Dose 200 mg .ROUTE .STK-MED ONE Stop: 06/22/16 10:27 Propofol (Diprivan 20 Ml) Confirm Administered Dose 200 mg .ROUTE .STK-MED ONE Stop: 06/22/16 13:42 Propofol (Diprivan 20 Ml) Confirm Administered Dose 200 mg .ROUTE .STK-MED ONE Stop: 06/22/16 14:22 Rivaroxaban (Xarelto) 10 mg PO DAILY [facility] Last Admin: 06/23/16 12:23 Dose: 10 mg Senna (Senna) 8.6 mg PO BID PRN PRN Reason: Constipation Sodium Chloride (Saline Flush) 10 ml FLUSH ASDIRECTED PRN PRN Reason: Keep Vein Open Stop: 06/22/16 18:00 Tranexamic Acid (Cyklokapron) Confirm Administered Dose 1,000 mg .ROUTE .STK- MED ONE Stop: 06/22/16 11:23 Last Admin: 06/22/16 14:30 Dose: 1,000 mg Vit A/Vit C/Vit E/Selen/Cu/Zn/Lutei (Icaps Mv) 1 tab PO DAILY [facility] Last Admin: 06/23/16 08:34 Dose: 1 tab *Q Meaningful Use (DIS) - VTE *Q VTE Criteria *Q: - Stroke *Q Stroke Criteria *Q: - AMI *Q AMI Criteria *Q:
--- NOTE | 2016-07-02 07:44 | PCM.OPNOTE ---
- General Post-Op/Procedure Note Date of Surgery/Procedure: 06/22/16 Operative Procedure(s): left total knee arthroplasty Pre Op Diagnosis: left knee osteoarthrosis Post-Op Diagnosis: Same Anesthesia Technique: Local, MAC, Spinal Primary Surgeon: Izaiah Doan Anesthesia Provider: Eufemia Almendarez Apprentice Pattern Maker: Ivory Stone Apprentice Pattern Maker: Lottie Coughlin EBL in mLs: 300 Complications: None Condition: Good
--- NOTE | 2016-07-02 08:15 | OR ---
DATE OF OPERATION: 06/22/2016 SURGEON: Izaiah Doan MD OPERATION PERFORMED: Left total knee arthroplasty. PREOPERATIVE DIAGNOSIS: Left knee osteoarthrosis. POSTOPERATIVE DIAGNOSIS: Left knee osteoarthrosis. ANESTHESIA: Local MAC with spinal. ANESTHESIA PROVIDER: Eufemia Almendarez CRNA TURRET LATHE OPERATOR: Ivory Stone PA-C and Lottie Coughlin LPN. ESTIMATED BLOOD LOSS: 300 mL COMPLICATIONS: None. CONDITION: Stable. IMPLANTS: 1. [place] size 7 PS femur. 2. [place] size 7 [place] tibial base plate. 3. [place] size 7 PS 11 mm polyethylene. 4. 35 x 10 mm asymmetric patella. DESCRIPTION OF PROCEDURE: The patient was identified in the preop holding area. Proper site was marked and identified by the surgeon. The patient was taken back to the operating theater. After adequate anesthesia, the patient's left lower extremity had a nonsterile tourniquet applied and it was then sterilely prepped and draped in the usual sterile fashion. OR timeout was performed. The patient received 2 g IV Ancef. At this time, left lower extremity was exsanguinated. Tourniquet was insufflated to 300 mmHg. Standard medial parapatellar incision was made. Medial parapatellar arthrotomy was created. Deep fibers of the MCL were raised and anterior fat pad was resected. At this time, attention was turned to the patella. Patella measured 25, it was resected to a 15 for 35 x 10 mm patella. Drill holes were then drilled and found to be in adequate position. The drill was then drilled in the distal femur and the intramedullary distal femoral cutting guide was then placed. 8 mm was resected off the distal femur and was found to be an adequate resection. Sizing guide was placed. It was found to be a size 7 PS femur that was shown on the implant record at the beginning of this dictation. The drill holes were drilled for the epicondylar axis using [place]ites[place] line and epicondyles as reference. At this time, the 4-in-1 cutting block was placed. An anterior posterior and anterior and posterior chamfer cuts were then completed. The correct size box cut was then placed and the box cut was completed and found to be an adequate resection. Attention was turned to the tibia. The posterior medial lateral retractors were placed. The extramedullary tibial guide was placed. It was placed in the old footprint of the ACL. It was aligned with the center of the ankle and 0 degrees of slope, 9 mm was then resected off the unaffected lateral side. There was found to be an acceptable reduction. At this time, posterior osteophytes were removed along with medial and lateral meniscus. A trial implant was placed with a correct sized tibia that was mentioned at the beginning of the dictation. An 11 mm trial spacer and an 11 mm X3 polyethylene were then placed. The patient's knee was brought through range of motion. The patella was tracking centrally and was stable to varus and valgus stress. Alignment was found to be roughly at 0 degrees. At this time, cement was mixed on the back table. The tibia was stamped and drilled in proper rotation. All cut surfaces were irrigated with pulse lavage irrigation with Ancef and then completely dried. Once this was completed, then the cement was ready. The universal tibial base plate was cemented in place. Next, 8 mm resected off the distal femur cemented into place and an 11 mm trial spacer and an 11 mm X3 polyethylene were placed. The patient's knee was brought into full extension. Excess cement was removed. The patella was then cemented in place at this time. Tourniquet was deflated. One liter dilute Betadine solution was irrigated through the knee along with 3 L of pulse lavage irrigation with Ancef. Periarticular injection was then completed. The patient's knee was brought through a range of motion. Once the cement had time to set up and it was found to be stable to varus valgus stress, the patella was tracking centrally with full range of motion. At this time, a #2 barbed suture was used for closure of the medial parapatellar arthrotomy. Topical tranexamic acid was placed. 2-0 Vicryl was used subcutaneously, a running 3-0 Monocryl was used subcuticularly. The patient tolerated the procedure well and was sent to the PACU in stable condition. YSABEL /[id number]
== END 2016-06-23 18:54 | disposition home or self-care (01) | DRG 470 ==
LOC: JD.MS 06-22 10:05
PROVIDERS: ADMIT Orthopaedic Surgery; ATTEND Orthopaedic Surgery
PROC: 0SRD0J9 Replacement of Left Knee Joint with Synthetic Substitute, Cemented, Open Approach (ICD-10-PCS; principal; 2016-06-22)
DX: M17.12 Unilateral primary osteoarthritis, left knee (principal); M19.90 Unspecified osteoarthritis, unspecified site; H91.90 Unspecified hearing loss, unspecified ear; C67.9 Malignant neoplasm of bladder, unspecified; Z96.619 Presence of unspecified artificial shoulder joint; Z87.891 Personal history of nicotine dependence; Z79.82 Long term (current) use of aspirin; Z79.899 Other long term (current) drug therapy; E66.9 Obesity, unspecified; Z68.35 Body mass index [BMI] 35.0-35.9, adult
CPT/HCPCS: 01402; 36415; 73560-26-LT; 73560-LT; 80053; 85025; 94762; 97110-GP; 97116-GP; 97161-GP; 97165-GO; 97535-GO; 99222; 99232; A9270-GY; C1713; C1776; J0171; J0690; J0697; J1200; J1885; J2250; J2270; J2405; J2704; J3490; J7120

== ENCOUNTER 2017-02-16 21:10 | Emergency (ER) | payer MEDICARE, OTHER ==
[2017-02-16 21:25] VITALS: BP 132/85
[2017-02-16] MEDS ORDERED: Lidocaine 1% 50 ML MDV INJECT ONE (21:53)
--- NOTE | 2017-02-16 22:14 | EDM.PDOC ---
ED HPI GENERAL MEDICAL PROBLEM - General Chief Complaint: Laceration Stated Complaint: LACERATION TO FACE Time Seen by Provider: 02/16/17 22:04 - History of Present Illness INITIAL COMMENTS - FREE TEXT/NARRATIVE: 71-year-old male presents emergency room with facial laceration. About 2-1/2 hours prior to arrival the patient walked into one of the [place] on a forklift. He had no loss of consciousness he hit it with his right forehead just above his eyebrow. He has a small laceration. The patient went home cleaned up before coming in. He is up-to-date on his tetanus. He is otherwise doing well no other injuries or unusual symptoms from the time of this injury. Treatments ANALOG DEVICE DESIGNER: Reports: Other (see below) Other Treatments ANALOG DEVICE DESIGNER: none Right Eye Pain Score (Numeric/FACES): 1 - Related Data Allergies Allergy/AdvReac Type Severity Reaction Status Date / Time No Known Allergies Allergy Verified 06/22/16 11:24 Home Meds: Home Meds Aspirin 81 mg PO DAILY 06/19/16 [History] Fish Oil/[place]-3 Fatty Acids [Fish Oil 1,000 MG] 1,000 mg PO DAILY 06/19/16 [ History] Glucosamine [Glucosamine Sulfate] 500 mg PO DAILY 06/19/16 [History] Lutein/Minerals/Vit A,C & E [Ocuvite] 1 tab PO DAILY 06/19/16 [History] Multivitamins/Minerals [Vitamins and Minerals] 1 tab PO DAILY 06/19/16 [History] Iron 64 mg PO DAILY 06/22/16 [History] Past Medical History HEENT History: Reports: Hard of Hearing, Impaired Vision Other HEENT History: wears glasses Cardiovascular History: Reports: None Respiratory History: Reports: None Gastrointestinal History: Reports: None Genitourinary History: Reports: None Musculoskeletal History: Reports: Arthritis Neurological History: Reports: None Psychiatric History: Reports: PTSD Endocrine/Metabolic History: Reports: None Hematologic History: Reports: None Immunologic History: Reports: None Oncologic (Cancer) History: Reports: Bladder Dermatologic History: Reports: None - Infectious Disease History Infectious Disease History: Reports: Chicken Pox - Past Surgical History GI Surgical History: Reports: Colonoscopy Musculoskeletal Surgical History: Reports: Shoulder Replacement Social & Family History - Family History Family Medical History: Noncontributory - Tobacco Use Smoking Status *Q: Former Smoker Used Tobacco, but Quit: Yes Month Tobacco Last Used: 17 Second Hand Smoke Exposure: No - Caffeine Use Caffeine Use: Reports: Coffee, Soda - Alcohol Use Days Per Week of Alcohol Use: 3 - Recreational Drug Use Recreational Drug Use: No Drug Use in Last 12 Months: No ED ROS GENERAL - Review of Systems Review Of Systems: See Below Constitutional: Reports: No Symptoms HEENT: Reports: No Symptoms Respiratory: Reports: No Symptoms Cardiovascular: Reports: No Symptoms GI/Abdominal: Reports: No Symptoms Neurological: Reports: No Symptoms ED EXAM, SKIN/RASH Exam: See Below Exam Limited By: No Limitations General Appearance: Alert, No Apparent Distress Eye Exam: Bilateral Eye: EOMI, Normal Inspection, PERRL Ears: Normal External Exam, Normal Canal, Hearing Grossly Normal, Normal TMs Nose: Normal Inspection, Normal Mucosa, No Blood Throat/Mouth: Normal Inspection, Normal Lips, Normal Oropharynx, No Airway Compromise Head: Normocephalic, Other (Small laceration above his right eyebrow) Neck: Normal Inspection, Supple, Non-Tender. No: Lymphadenopathy (L), Lymphadenopathy (R) Respiratory/Chest: No Respiratory Distress, Lungs Clear, Normal Breath Sounds Cardiovascular: Regular Rate, Rhythm, No Edema, No Murmur ED SKIN PROCEDURES - Laceration/Wound Repair Right Face Lac/Wound length In cm: 1.4 Appearance: Irregular Anesthetic Type: Local Local Anesthesia - Lidocaine (Xylocaine): 1% Plain Local Anesthetic Volume: 2cc Skin Prep: Saline Exploration/Debridement/Repair: Wound Explored, In a Bloodless Field, Explored to Base, Minimal Debridement Closed with: Sutures Suture Size: 4-0 # of Sutures: 5 Suture Type: Nylon Tetanus Status Addressed: Yes (He is up-to-date) Complications: No Course - Vital Signs Last Recorded V/S: Last Vital Signs Temp 36.4 C 02/16/17 21:24 Pulse 83 02/16/17 21:24 Resp 20 02/16/17 21:24 BP 132/85 02/16/17 21:24 Pulse Ox 96 02/16/17 21:24 - Orders/Labs/Meds Meds: Medications Discontinued Medications Generic Name Dose Route Start Last Admin Trade Name Delgado PRN Reason Stop Dose Admin Lidocaine HCl 30 ml 02/16/17 21:53 02/16/17 21:56 Xylocaine 1% INJECT 02/16/17 21:54 30 ml ONETIME ONE Administration Departure - Departure Time of Disposition: 22:30 Disposition: Home, Self-Care 01 Clinical Impression: Facial laceration - Discharge Information Referrals: PCP,None [Primary Care Provider] - Forms: ED Department Discharge Additional Instructions: Return to the emergency room with any questions problems. Follow-up at the Hospital clinic in 7 or 8 days for suture removal. [phone] You have a small laceration above your right eye. He did bump her head but this does not appear to be a problem at this point however stay with a close observation tonight and tomorrow.
== END 2017-02-16 22:38 | disposition home or self-care (01) ==
LOC: JD.ED 21:10
DX: S01.81XA Laceration without foreign body of other part of head, initial encounter (principal); Z79.899 Other long term (current) drug therapy; Z87.891 Personal history of nicotine dependence; W22.8XXA Striking against or struck by other objects, initial encounter
CPT/HCPCS: 12011; 99282; 99283-25

== ENCOUNTER 2020-02-19 16:24 | Inpatient (IN) | payer MEDICARE, OTHER ==
[2020-02-19] MEDS ORDERED: Sodium Chloride 0.9% 10 ML Syringe FLUSH PRN (19:07)
[2020-02-19] MEDS ORDERED: Ondansetron 4 MG/2 ML SDV IV PRN (19:07)
--- NOTE | 2020-02-19 19:20 | PCM.HP.2 ---
H&P History of Present Illness - General Date of Service: 02/19/20 Admit Problem/Dx: Admission Diagnosis/Problem Admission Diagnosis/Problem Hypoxia - History of Present Illness Initial Comments - Free Text/Narative: 74-year-old male who presents from the clinic with shortness of breath, cough, and headache. Patient was diagnosed with Covid 6 days ago after having a mild upper respiratory infection for several days before. Today when the patient was doing some chores and taking out the trash he became more short of breath and presented to his primary care provider. At his primary care provider he was fou nd to be hypoxemic requiring between 2 to 5 L of O2 via nasal cannula per minute to maintain saturation in the mid to low 90s. Patient was able to be weaned down at rest to 3 L and sent to the emergency department and then admitted to the floor. Labs done in the clinic showed white count of 4.3, hemoglobin 14.5, platelets of 137, D-dimer 0.45, and normal electrolytes, LDH of 351, ferritin 3439, proBNP of 162, and chest x-ray showing patchy bilateral opacities in the lower lobes bilaterally may represent multifocal pneumonia including COVID-19. - Related Data Allergies/Adverse Reactions: Allergies Allergy/AdvReac Type Severity Reaction Status Date / Time paregoric Allergy Itching Verified 02/19/20 20:53 Home Medications: Home Meds Aspirin 81 mg PO DAILY 06/19/16 [History] Fish Oil/[place]-3 Fatty Acids [Fish Oil 1,000 MG] 1,200 mg PO DAILY 06/19/16 [History] Glucosamine [Glucosamine Sulfate] 1,200 mg PO DAILY 06/19/16 [History] Multivitamins/Minerals [Vitamins and Minerals] 1 tab PO DAILY 06/19/16 [History] Iron 64 mg PO DAILY 06/22/16 [History] Calc/D3/Mag/Zn/Stephen/David/Man [Calcium 600 MG Plus Vit D] 600 mg PO BID 02/19/20 [History] Magnesium Oxide [Magnesium] 400 mg PO DAILY 02/19/20 [History] Milk Thistle 300 mg PO DAILY 02/19/20 [History] Vit A/Vit C/Vit E/Zinc/Copper [Preservision] 2 tab PO BID 02/19/20 [History] Vit D3 & K/[place] HCl/Hops [Ostera] 2,000 units PO DAILY 02/19/20 [History] Vit E/B1/B6/FA/B12/Ala/Coq10 [Folic-K Capsule] 400 intnl unit PO DAILY 02/19/20 [History] Past Medical History HEENT History: Reports: Hard of Hearing, Impaired Vision Other HEENT History: wears glasses Cardiovascular History: Reports: None Respiratory History: Reports: None Gastrointestinal History: Reports: GERD Genitourinary History: Reports: None Musculoskeletal History: Reports: Arthritis Neurological History: Reports: None Psychiatric History: Reports: Anxiety, Depression, PTSD Endocrine/Metabolic History: Reports: Obesity/BMI 30+ Hematologic History: Reports: None Immunologic History: Reports: None Oncologic (Cancer) History: Reports: Bladder Other Oncologic History: tested 2-3 weeks ago and "all clear" Dermatologic History: Reports: None - Infectious Disease History Infectious Disease History: Reports: Chicken Pox, Measles, Mumps - Past Surgical History GI Surgical History: Reports: Colonoscopy Musculoskeletal Surgical History: Reports: Shoulder Replacement Social & Family History - Family History Family Medical History: Noncontributory - Tobacco Use Tobacco Use Status *Q: Never Tobacco User Used Tobacco, but Quit: Yes Month/Year Tobacco Last Used: 04/1998 - Caffeine Use Caffeine Use: Reports: Coffee Other Caffeine Use: 5-6 cups/day - Recreational Drug Use Recreational Drug Use: No H&P Review of Systems - Review of Systems: Review Of Systems: Comprehensive ROS is negative, except as noted in HPI. Exam - Exam Exam: See Below - Vital Signs Vital Signs: Last Vital Signs Temp 99.7 F 02/19/20 18:02 Pulse 89 02/19/20 18:02 Resp 32 H 02/19/20 18:02 BP 115/60 02/19/20 18:02 Pulse Ox 94 L 02/19/20 18:02 Weight: 105.687 kg - Exam Quality Assessment: Supplemental Oxygen General: Alert, Oriented, 4 HEENT: Conjunctiva Clear, Hearing Intact, Mucosa Moist & [place] Neck: Supple, Trachea Midline, 2 Lungs: Rales (Bibasilar). No: Normal Respiratory Effort (Increased respiratory rate and mildly increased effort) Cardiovascular: Regular Rate, Regular Rhythm GI/Abdominal Exam: Normal Bowel Sounds, Soft, Non-Tender, No Organomegaly, No Distention, No Abnormal Bruit, No Mass Extremities: Normal Inspection, Normal Range of Motion, Non-Tender, No Pedal Edema, Normal Capillary Refill Peripheral Pulses: 2+: Posterior Tibial (L), Posterior Tibial (R), Dorsalis Pedis (L), Dorsalis Pedis (R) Skin: Warm, Dry, Intact Neurological: Cranial Nerves Intact Neuro Extensive - Mental Status: Alert, Oriented x3, Normal Mood/Affect, Normal Cognition, Memory Intact Psychiatric: Alert, Normal Affect, Normal Mood - Patient Data Result Diagrams: 02/20/20 05:15 02/20/20 05:15 #1 Interpretation EKG Date: 02/19/20 Time: 20:14 Rhythm: NSR Rate (Beats/Min): 89 [place]: LAD-Left [place] Deviation P-Wave: Present QRS: Other (Normal QRS with early transition) ST-T: Normal QT: Normal Comparison: NA - No Prior EKG Sepsis Event Note - Evaluation Sepsis Screening Result: Possible Sepsis Risk - Focused Exam Vital Signs: Vital Signs Temp Temp Pulse Pulse Resp BP BP 02/19/20 18:02 99.7 F 89 32 H 115/60 02/19/20 16:42 100.3 F 89 32 H 138/88 Pulse Ox 02/19/20 18:02 94 L 02/19/20 16:42 88 L - Problem List (1) Pneumonia due to COVID-19 virus SNOMED Code(s): 903627172802194002 ICD Code: U07.1 - COVID-19; J12.89 - OTHER VIRAL PNEUMONIA Status: Acute Current Visit: Yes (2) Respiratory distress SNOMED Code(s): 333753920 ICD Code: R06.03 - ACUTE RESPIRATORY DISTRESS Status: Acute Current Visit: Yes Problem List Initiated/Reviewed/Updated: Yes Orders Last 24hrs: Active Orders 24 hr Category Date Time Status Admission Status [Patient Status] [ADT] Routine ADT 02/19/20 17:58 Active EKG Documentation Completion [RC] STAT Care 02/19/20 19:14 Ordered Nurse Communication: Isolation [RC] ASDIRECTED Care 02/19/20 19:07 Ordered Oxygen Therapy [RC] PRN Care 02/19/20 19:07 Ordered Positioning, Patient [RC] ASDIRECTED Care 02/19/20 19:12 Ordered Up ad Nelli [RC] ASDIRECTED Care 02/19/20 19:07 Ordered VTE/DVT Education [RC] PER UNIT ROUTINE Care 02/19/20 19:07 Ordered Verify Patient Consent Obtain [RC] ASDIRECTED Care 02/19/20 19:07 Ordered Vital Signs [RC] Q4H Care 02/19/20 19:07 Ordered Respiratory Care Assess and Treatment [CONS] Routine Cons 02/19/20 19:07 Ordered Heart Healthy Diet [DIET] Diet 02/20/20 Breakfast Active Chest 1V Frontal [CR] Routine Exams 02/20/20 07:00 Ordered ABO/RH TYPE [BBK] Routine Lab 02/19/20 19:07 Ordered BLOOD GAS ARTERIAL [BG] Stat Lab 02/19/20 19:07 Ordered C-REACTIVE PROTEIN [CHEM] Routine Lab 02/19/20 19:07 Ordered CBC WITH AUTO DIFF [HEME] AM Lab 02/20/20 05:11 Ordered CBC WITH AUTO DIFF [HEME] Routine Lab 02/19/20 19:07 Ordered CMP [COMPREHENSIVE METABOLIC PN,CMP] [CHEM] AM Lab 02/20/20 05:11 Ordered COMPREHENSIVE METABOLIC PN,CMP [CHEM] Routine Lab 02/19/20 19:07 Ordered CULTURE BLOOD [BC] Stat Lab 02/19/20 19:07 Ordered CULTURE SPUTUM + SMEAR [RM] Routine Lab 02/19/20 19:14 Ordered D-DIMER QUANTITATIVE [COAG] Stat Lab 02/19/20 19:07 Ordered FERRITIN [CHEM] Routine Lab 02/19/20 19:07 Ordered FRESH FROZEN PLASMA [BBK] Routine Lab 02/19/20 19:07 Ordered INR,PT,PROTHROMBIN TIME [COAG] Routine Lab 02/19/20 19:07 Ordered LACTATE DEHYDROGENASE,LDH [CHEM] Stat Lab 02/19/20 19:07 Ordered LACTIC ACID [CHEM] Stat Lab 02/19/20 19:07 Ordered MAGNESIUM [CHEM] AM Lab 02/20/20 05:11 Ordered MAGNESIUM [CHEM] Routine Lab 02/19/20 19:07 Ordered PHOSPHORUS [CHEM] AM Lab 02/20/20 05:11 Ordered PROCALCITONIN [REF] Stat Lab 02/19/20 19:07 Ordered PTT,PARTIAL THROMBOPLSTIN TIME [COAG] Routine Lab 02/19/20 19:07 Ordered TROPONIN I [CHEM] Routine Lab 02/19/20 19:07 Ordered Acetaminophen [TylenoL] Med 02/19/20 19:07 Ordered 650 mg PO Q4H PRN Aspirin Med 02/19/20 21:00 Ordered 81 mg PO BEDTIME Enoxaparin [Lovenox] Med 02/19/20 19:15 Ordered 40 mg SUBCUT Q12H Ondansetron [Zofran] Med 02/19/20 19:07 Ordered 4 mg IV Q4H PRN Remdesivir (Eua) [Remdesivir (EUA)] 100 mg Med 02/20/20 19:15 Ordered Sodium Chloride 0.9% [Normal Saline] 100 ml IV Q24H Remdesivir (Eua) [Remdesivir (EUA)] 200 mg Med 02/19/20 19:07 Ordered Sodium Chloride 0.9% [Normal Saline] 250 ml IV ONETIME Sodium Chloride 0.9% [Saline Flush] Med 02/19/20 19:07 Ordered 10 ml FLUSH ASDIRECTED PRN dexAMETHasone Med 02/19/20 19:15 Ordered 6 mg PO Q24H Isolation [COMM] Stat Oth 02/19/20 19:07 Ordered Pulse Oximetry Continuous Monitoring [OM.PC] Routine Oth 02/19/20 17:59 Active Saline Lock Insert [OM.PC] Routine Oth 02/19/20 19:07 Ordered Transfuse Fresh Frozen Plasma [COMM] Routine Oth 02/19/20 19:07 Ordered Resuscitation Status Routine Resus Stat 02/19/20 19:07 Ordered Medication Orders Acetaminophen (Tylenol) 650 mg PO Q4H PRN PRN Reason: Pain (Mild 1-3)/fever Aspirin (Aspirin) 81 mg PO BEDTIME ANGY Dexamethasone (Dexamethasone) 6 mg PO Q24H ANGY Stop: 02/28/20 19:16 Enoxaparin Sodium (Lovenox) 40 mg SUBCUT Q12H ANGY Remdesivir 200 mg/ Sodium (Chloride) 250 mls @ 250 mls/hr IV ONETIME ONE Stop: 02/19/20 19:08 Remdesivir 100 mg/ Sodium (Chloride) 100 mls @ 100 mls/hr IV Q24H ANGY Stop: 02/23/20 20:14 Ondansetron HCl (Zofran) 4 mg IV Q4H PRN PRN Reason: Nausea/Vomiting Sodium Chloride (Saline Flush) 10 ml FLUSH ASDIRECTED PRN PRN Reason: Keep Vein Open Assessment/Plan Comment:: Assessment * 74-year-old male with pneumonia secondary to COVID-19 directly admitted to the hospital after presenting to the clinic with cough, shortness of breath, fatigue, and hypoxemia. * Risk factors include older age, male sex, and obesity. He has had a history of hypertension in the past, but currently does not take his blood pressure medications. Plan * Admit to floor on telemetry and continuous pulse ox * Start remdesivir 200 mg now then 100 mg daily for a total of 5 days * Dexamethasone 6 mg every 24 hours for up to 10 days. * I spoke with him to provide information about convalescent plasma. I offered the "fax sheet for patients and parents/caregivers, for COVID-19 convalescent plasma to read and review. I stated that therapy has been approved by an emergency use authorization process and has not fully been FDA reviewed or approved. I shared potential risks from the therapy including transmission of blood borne pathogen such as HIV and hepatitis C, allergic and transfusion related reactions, post transfusion purpura. Additionally theoretical risks include a phenomenon called antibodydependent enhancement of infection such as is seen in dengue or attenuation of an immune response that may make patients more susceptible to reinfection. * He will receive 2 units convalescent plasma * Aspirin 81 mg daily * Lovenox 40 mg subcutaneously twice daily * CBC, CMP, mag, phosphorus in the morning * FiO2 to keep SPO2 between 88 and 94%. * CODE STATUS full code * Length of stay minimum of 5 days due to treatment with remdesivir. - Mortality Measure Prognosis:: Good
[2020-02-19] MEDS ORDERED: REMDESIVIR 200 MG in Sodium Chloride 0.9% 250 ML IV ONE (21:00)
[2020-02-19] MEDS: Dexamethasone 4 MG Tab PO SCH (22:00)
[2020-02-19] MEDS: Enoxaparin 40 MG/0.4 ML Syringe SUBCUT SCH (22:01)
[2020-02-19] MEDS: Aspirin 81 MG Tab.Chew PO SCH (22:01)
[2020-02-19] MEDS: Acetaminophen 325 MG Tab PO PRN (22:05)
[2020-02-19] MEDS ORDERED: Sodium Chloride 0.9% 100 ML IV SCH (23:15)
[2020-02-20] MEDS: Enoxaparin 40 MG/0.4 ML Syringe SUBCUT SCH ×2 (09:08→20:21)
--- NOTE | 2020-02-20 14:32 | PCM.PN ---
- General Info Date of Service: 02/20/20 Admission Dx/Problem (Free Text): Admission Diagnosis/Problem Admission Diagnosis/Problem Hypoxia Subjective Update: Kanu states he feels better than he has in several days. This is likely secondary to being on oxygen. He continues to have a good appetite, but did not like the choices this morning since he was on a heart healthy diet. He continues on 3 L nasal cannula. Functional Status: Reports: Pain Controlled - Review of Systems General: Reports: Fatigue HEENT: Reports: No Symptoms Pulmonary: Reports: Shortness of Breath, Cough Cardiovascular: Reports: No Symptoms Gastrointestinal: Reports: No Symptoms Musculoskeletal: Reports: No Symptoms Neurological: Reports: No Symptoms - Patient Data Vitals - Most Recent: Last Vital Signs Temp 97.7 F 02/20/20 11:17 Pulse 77 02/20/20 11:17 Resp 16 02/20/20 11:17 BP 103/76 02/20/20 11:17 Pulse Ox 90 L 02/20/20 11:17 Weight - Most Recent: 105.687 kg I&O - Last 24 Hours: Intake & Output 02/19/20 02/20/20 02/20/20 22:59 06:59 14:59 Intake Total 680 1644 391 Output Total 900 Balance 680 744 391 Lab Results Last 24 Hours: Laboratory Results - last 24 hr 02/19/20 02/19/20 02/19/20 Range/Units 14:15 19:45 19:45 WBC (4.23-9.07) K/mm3 RBC (4.63-6.08) M/mm3 Hgb (13.7-17.5) gm/dl Hct (40.1-51.0) % MCV (79.0-92.2) fl MCH (25.7-32.2) pg MCHC (32.2-35.5) g/dl RDW Std Deviation (35.1-43.9) fL Plt Count (163-337) K/mm3 MPV (9.4-12.3) fl Neut % (Auto) (34.0-67.9) % Lymph % (Auto) (21.8-53.1) % [place] % (Auto) (5.3-12.2) % Eos % (Auto) (0.8-7.0) Baso % (Auto) (0.1-1.2) % Neut # (Auto) (1.78-5.38) K/mm3 Lymph # (Auto) (1.32-3.57) K/mm3 [place] # (Auto) (0.30-0.82) K/mm3 Eos # (Auto) (0.04-0.54) K/mm3 Baso # (Auto) (0.01-0.08) K/mm3 PT 11.9 (9.7-12.0) SECONDS INR 1.11 APTT 30.7 (21.7-31.4) SECONDS Puncture Site ABG pH (7.35-7.45) ABG pCO2 (35.0-45.0) mmHg ABG pO2 (80.0-100.0) mmHg ABG HCO3 (22.0-26.0) meq/L ABG O2 Saturation (96.0-97.0) % ABG Base Excess (-2-2.0) A-a Gradient mmHg O2 Delivery Device Oxygen Flow Rate FiO2 (21.00-100.00) % Sodium (136-145) mEq/L Potassium (3.5-5.1) mEq/L Chloride (98-107) mEq/L Carbon Dioxide (21-32) mEq/L Anion Gap (5-15) BUN (7-18) mg/dL Creatinine (0.7-1.3) mg/dL Est Cr Clr Drug Dosing mL/min Estimated GFR (MDRD) (>60) mL/min BUN/Creatinine Ratio (14-18) Glucose (83-115) mg/dL Lactic Acid (0.4-2.0) mmol/L Calcium (8.5-10.1) mg/dL Phosphorus (2.6-4.7) mg/dL Magnesium 1.9 (1.8-2.4) mg/dl Total Bilirubin (0.2-1.0) mg/dL AST (15-37) U/L ALT (16-63) U/L Alkaline Phosphatase (46-116) U/L Troponin I < 0.017 (0.00-0.056) ng/mL C-Reactive Protein 14.4 H* (<1.0) mg/dL Total Protein (6.4-8.2) g/dl Albumin (3.4-5.0) g/dl Globulin gm/dL Albumin/Globulin Ratio (1-2) Blood Type O POSITIVE 02/19/20 02/19/20 02/20/20 Range/Units 20:20 20:25 05:15 WBC 4.13 L (4.23-9.07) K/mm3 RBC 4.37 L (4.63-6.08) M/mm3 Hgb 13.6 L (13.7-17.5) gm/dl Hct 40.5 (40.1-51.0) % MCV 92.7 H (79.0-92.2) fl MCH 31.1 (25.7-32.2) pg MCHC 33.6 (32.2-35.5) g/dl RDW Std Deviation 42.7 (35.1-43.9) fL Plt Count 144 L (163-337) K/mm3 MPV 9.4 (9.4-12.3) fl Neut % (Auto) 80.9 H (34.0-67.9) % Lymph % (Auto) 13.1 L (21.8-53.1) % [place] % (Auto) 5.6 (5.3-12.2) % Eos % (Auto) 0 L (0.8-7.0) Baso % (Auto) 0.2 (0.1-1.2) % Neut # (Auto) 3.34 (1.78-5.38) K/mm3 Lymph # (Auto) 0.54 L (1.32-3.57) K/mm3 [place] # (Auto) 0.23 L (0.30-0.82) K/mm3 Eos # (Auto) 0.00 L (0.04-0.54) K/mm3 Baso # (Auto) 0.01 (0.01-0.08) K/mm3 PT (9.7-12.0) SECONDS INR APTT (21.7-31.4) SECONDS Puncture Site Lt radial ABG pH 7.48 H (7.35-7.45) ABG pCO2 33.5 L (35.0-45.0) mmHg ABG pO2 56.0 L (80.0-100.0) mmHg ABG HCO3 24.5 (22.0-26.0) meq/L ABG O2 Saturation 90.3 L (96.0-97.0) % ABG Base Excess 1.8 (-2-2.0) A-a Gradient 131 mmHg O2 Delivery Device Nasal cannula Oxygen Flow Rate 3.0 FiO2 32.00 (21.00-100.00) % Sodium (136-145) mEq/L Potassium (3.5-5.1) mEq/L Chloride (98-107) mEq/L Carbon Dioxide (21-32) mEq/L Anion Gap (5-15) BUN (7-18) mg/dL Creatinine (0.7-1.3) mg/dL Est Cr Clr Drug Dosing mL/min Estimated GFR (MDRD) (>60) mL/min BUN/Creatinine Ratio (14-18) Glucose (83-115) mg/dL Lactic Acid 2.1 H* (0.4-2.0) mmol/L Calcium (8.5-10.1) mg/dL Phosphorus (2.6-4.7) mg/dL Magnesium (1.8-2.4) mg/dl Total Bilirubin (0.2-1.0) mg/dL AST (15-37) U/L ALT (16-63) U/L Alkaline Phosphatase (46-116) U/L Troponin I (0.00-0.056) ng/mL C-Reactive Protein (<1.0) mg/dL Total Protein (6.4-8.2) g/dl Albumin (3.4-5.0) g/dl Globulin gm/dL Albumin/Globulin Ratio (1-2) Blood Type 02/20/20 02/20/20 Range/Units 05:15 05:15 WBC (4.23-9.07) K/mm3 RBC (4.63-6.08) M/mm3 Hgb (13.7-17.5) gm/dl Hct (40.1-51.0) % MCV (79.0-92.2) fl MCH (25.7-32.2) pg MCHC (32.2-35.5) g/dl RDW Std Deviation (35.1-43.9) fL Plt Count (163-337) K/mm3 MPV (9.4-12.3) fl Neut % (Auto) (34.0-67.9) % Lymph % (Auto) (21.8-53.1) % [place] % (Auto) (5.3-12.2) % Eos % (Auto) (0.8-7.0) Baso % (Auto) (0.1-1.2) % Neut # (Auto) (1.78-5.38) K/mm3 Lymph # (Auto) (1.32-3.57) K/mm3 [place] # (Auto) (0.30-0.82) K/mm3 Eos # (Auto) (0.04-0.54) K/mm3 Baso # (Auto) (0.01-0.08) K/mm3 PT (9.7-12.0) SECONDS INR APTT (21.7-31.4) SECONDS Puncture Site ABG pH (7.35-7.45) ABG pCO2 (35.0-45.0) mmHg ABG pO2 (80.0-100.0) mmHg ABG HCO3 (22.0-26.0) meq/L ABG O2 Saturation (96.0-97.0) % ABG Base Excess (-2-2.0) A-a Gradient mmHg O2 Delivery Device Oxygen Flow Rate FiO2 (21.00-100.00) % Sodium 138 (136-145) mEq/L Potassium 3.8 (3.5-5.1) mEq/L Chloride 102 (98-107) mEq/L Carbon Dioxide 24 (21-32) mEq/L Anion Gap 15.8 H (5-15) BUN 16 (7-18) mg/dL Creatinine 1.0 (0.7-1.3) mg/dL Est Cr Clr Drug Dosing 63.65 mL/min Estimated GFR (MDRD) > 60 (>60) mL/min BUN/Creatinine Ratio 16.0 (14-18) Glucose 140 H (83-115) mg/dL Lactic Acid 1.1 (0.4-2.0) mmol/L Calcium 8.9 (8.5-10.1) mg/dL Phosphorus 3.2 (2.6-4.7) mg/dL Magnesium 2.0 (1.8-2.4) mg/dl Total Bilirubin 0.7 (0.2-1.0) mg/dL AST 75 H (15-37) U/L ALT 78 H (16-63) U/L Alkaline Phosphatase 96 (46-116) U/L Troponin I (0.00-0.056) ng/mL C-Reactive Protein (<1.0) mg/dL Total Protein 6.9 (6.4-8.2) g/dl Albumin 2.9 L (3.4-5.0) g/dl Globulin 4.0 gm/dL Albumin/Globulin Ratio 0.7 L (1-2) Blood Type Ramirez Results Last 24 Hours: Microbiology 02/20/20 05:15 Gram Stain - Final Sputum - Expectorated Med Orders - Current: Current Medications Acetaminophen (Tylenol) 650 mg PO Q4H PRN PRN Reason: Pain (Mild 1-3)/fever Last Admin: 02/19/20 22:05 Dose: 650 mg Documented by: Aspirin (Aspirin) 81 mg PO BEDTIME [facility] Last Admin: 02/19/20 22:01 Dose: 81 mg Documented by: Dexamethasone (Dexamethasone) 6 mg PO Q24H [facility] Stop: 02/28/20 21:01 Last Admin: 02/19/20 22:00 Dose: 6 mg Documented by: Enoxaparin Sodium (Lovenox) 40 mg SUBCUT Q12H [facility] Last Admin: 02/20/20 09:08 Dose: 40 mg Documented by: Remdesivir 100 mg/ Sodium (Chloride) 100 mls @ 100 mls/hr IV Q24H [facility] Stop: 02/23/20 21:59 Ondansetron HCl (Zofran) 4 mg IV Q4H PRN PRN Reason: Nausea/Vomiting Sodium Chloride (Saline Flush) 10 ml FLUSH ASDIRECTED PRN PRN Reason: Keep Vein Open Discontinued Medications Remdesivir 200 mg/ Sodium (Chloride) 250 mls @ 250 mls/hr IV ONETIME ONE Stop: 02/19/20 21:59 Last Admin: 02/19/20 22:02 Dose: 250 mls/hr Documented by: Sodium Chloride (Normal Saline) 100 mls @ 25 mls/hr IV ASDIRECTED [facility] Last Admin: 02/19/20 23:46 Dose: 25 mls/hr Documented by: - Exam Quality Assessment: Supplemental Oxygen General: Alert, Oriented HEENT: Pupils Equal, Mucous Membr. Moist/[place] Neck: Supple, Trachea Midline Lungs: Normal Respiratory Effort (Mildly increased rate and effort), Rales (Bibasilar) GI/Abdominal Exam: Normal Bowel Sounds, Soft, Non-Tender, No Organomegaly, No Distention, No Mass Extremities: Normal Inspection, Normal Range of Motion, Non-Tender, No Pedal Edema, Normal Capillary Refill Psy/Mental Status: Alert, Normal Affect, Normal Mood Sepsis Event Note - Evaluation Sepsis Screening Result: Possible Sepsis Risk - Focused Exam Vital Signs: Vital Signs Temp Pulse Resp BP Pulse Ox Pulse Ox 02/20/20 11:17 97.7 F 77 16 103/76 90 L 02/20/20 07:42 97.9 F 75 16 102/64 92 L 02/20/20 05:27 93 L 02/20/20 05:19 98.1 F 76 20 100/74 89 L - Problem List & Annotations (1) Pneumonia due to COVID-19 virus SNOMED Code(s): 032954723028788574 Code(s): U07.1 - COVID-19; J12.89 - OTHER VIRAL PNEUMONIA Status: Acute Current Visit: Yes (2) Respiratory distress SNOMED Code(s): 786427736 Code(s): R06.03 - ACUTE RESPIRATORY DISTRESS Status: Acute Current Visit: Yes - Problem List Review Problem List Initiated/Reviewed/Updated: Yes - My Orders Last 24 Hours: My Active Orders 02/19/20 14:15 PROCALCITONIN [REF] Stat 02/19/20 17:58 Admission Status [Patient Status] [ADT] Routine 02/19/20 17:59 Pulse Oximetry Continuous Monitoring [OM.PC] Routine 02/19/20 19:07 Oxygen Therapy [RC] PRN Up ad Nelli [RC] BID VTE/DVT Education [RC] BID Verify Patient Consent Obtain [RC] ASDIRECTED Vital Signs [RC] Q4HR Respiratory Care Assess and Treatment [CONS] Routine Acetaminophen [TylenoL] 650 mg PO Q4H PRN Ondansetron [Zofran] 4 mg IV Q4H PRN Sodium Chloride 0.9% [Saline Flush] 10 ml FLUSH ASDIRECTED PRN Isolation [COMM] Stat Saline Lock Insert [OM.PC] Routine Transfuse Fresh Frozen Plasma [COMM] Routine Resuscitation Status Routine 02/19/20 19:12 Positioning, Patient [RC] BID 02/19/20 19:14 EKG Documentation Completion [RC] STAT 02/19/20 20:25 CULTURE BLOOD [BC] Stat 02/19/20 21:00 Aspirin 81 mg PO BEDTIME Enoxaparin [Lovenox] 40 mg SUBCUT Q12H dexAMETHasone 6 mg PO Q24H 02/20/20 05:15 CULTURE SPUTUM + SMEAR [RM] Routine 02/20/20 07:00 Chest 1V Frontal [CR] Routine 02/20/20 Lunch Regular Diet [DIET] 02/20/20 21:00 Remdesivir (Eua) [Remdesivir (EUA)] 100 mg Sodium Chloride 0.9% [Normal Saline] 100 ml IV Q24H - Plan Plan:: Assessment 02/19/2020 * 74-year-old male with pneumonia secondary to COVID-19 directly admitted to the hospital after presenting to the clinic with cough, shortness of breath, fatigue, and hypoxemia. * Risk factors include older age, male sex, and obesity. He has had a history of hypertension in the past, but currently does not take his blood pressure medications. 02/20/2020 * Patient continues with treatment for his pneumonia secondary to COVID-19. He is currently on 3 L nasal cannula and his oxygen saturations are in the low 90s. * Blood pressure well controlled off medication. Plan * Admit to floor on telemetry and continuous pulse ox * Remdesivir day 2 of 5 days * Dexamethasone day 2 for up to 10 days. * Received 2 units convalescent plasma * Aspirin 81 mg daily * Lovenox 40 mg subcutaneously twice daily * CBC, CMP, mag, phosphorus, D-dimer, C-reactive protein in the morning * FiO2 to keep SPO2 between 88 and 94%. Currently on 3 L * Change diet to regular diet. * CODE STATUS full code * Length of stay minimum of 5 days due to treatment with remdesivir.
[2020-02-20] MEDS: Aluminum Hydroxide/Magnesium Hydroxide/Simethicone Susp 30 ML Cup PO PRN (15:49)
[2020-02-20] MEDS: REMDESIVIR 100 MG in Sodium Chloride 0.9% 100 ML IV SCH (20:15)
[2020-02-20] MEDS: Dexamethasone 4 MG Tab PO SCH (20:20)
[2020-02-20] MEDS: Aspirin 81 MG Tab.Chew PO SCH (20:20)
[2020-02-20] MEDS: cefTRIAXone 2 GM in Sodium Chloride 0.9% 100 ML IV SCH (22:00)
[2020-02-20] MEDS: Azithromycin 500 MG in Sodium Chloride 0.9% 250 ML IV SCH (22:48)
[2020-02-21] MEDS: Aspirin 81 MG Tab.Chew PO SCH (08:13)
[2020-02-21] MEDS: Enoxaparin 40 MG/0.4 ML Syringe SUBCUT SCH ×2 (08:14→20:22)
--- NOTE | 2020-02-21 15:05 | PCM.PN ---
- General Info Date of Service: 02/21/20 Admission Dx/Problem (Free Text): Admission Diagnosis/Problem Admission Diagnosis/Problem Hypoxia Subjective Update: Patient had worsening of his oxygenation overnight. He was placed on high flow nasal cannula at 60 L with an FiO2 of 80%. Oxygen saturations improved overnight and by early this morning it was in the mid 90s. Patient states that when he was doing physical therapy several months ago his oxygen saturations were often in the low 90s and he would drop into the upper 80s with activity. This suggest that his baseline is lower than normal. Patient did get started on Rocephin and azithromycin last night. He does state his appetite is still good. Functional Status: Reports: Pain Controlled - Review of Systems General: Reports: No Symptoms HEENT: Reports: No Symptoms Pulmonary: Reports: Shortness of Breath, Cough Cardiovascular: Reports: No Symptoms Gastrointestinal: Reports: No Symptoms Musculoskeletal: Reports: No Symptoms Neurological: Reports: No Symptoms Psychiatric: Reports: No Symptoms - Patient Data Vitals - Most Recent: Last Vital Signs Temp 98.8 F 02/21/20 11:35 Pulse 70 02/21/20 11:35 Resp 20 02/21/20 11:35 BP 119/86 02/21/20 11:35 Pulse Ox 91 L 02/21/20 11:35 Weight - Most Recent: 102.013 kg I&O - Last 24 Hours: Intake & Output 02/21/20 02/21/20 02/21/20 06:59 14:59 22:59 Intake Total 850 180 Output Total 1500 Balance -650 180 Lab Results Last 24 Hours: Laboratory Results - last 24 hr 02/19/20 02/21/20 02/21/20 Range/Units 14:15 05:26 05:26 WBC 6.28 (4.23-9.07) K/mm3 RBC 4.61 L (4.63-6.08) M/mm3 Hgb 14.1 (13.7-17.5) gm/dl Hct 42.1 (40.1-51.0) % MCV 91.3 (79.0-92.2) fl MCH 30.6 (25.7-32.2) pg MCHC 33.5 (32.2-35.5) g/dl RDW Std Deviation 41.9 (35.1-43.9) fL Plt Count 170 (163-337) K/mm3 MPV 9.3 L (9.4-12.3) fl Neut % (Auto) 84.1 H (34.0-67.9) % Lymph % (Auto) 10.4 L (21.8-53.1) % [place] % (Auto) 5.3 (5.3-12.2) % Eos % (Auto) 0 L (0.8-7.0) Baso % (Auto) 0.0 L (0.1-1.2) % Neut # (Auto) 5.29 (1.78-5.38) K/mm3 Lymph # (Auto) 0.65 L (1.32-3.57) K/mm3 [place] # (Auto) 0.33 (0.30-0.82) K/mm3 Eos # (Auto) 0.00 L (0.04-0.54) K/mm3 Baso # (Auto) 0.00 L (0.01-0.08) K/mm3 D-Dimer, Quantitative 0.28 (0.19-0.50) mg/L Sodium (136-145) mEq/L Potassium (3.5-5.1) mEq/L Chloride (98-107) mEq/L Carbon Dioxide (21-32) mEq/L Anion Gap (5-15) BUN (7-18) mg/dL Creatinine (0.7-1.3) mg/dL Est Cr Clr Drug Dosing mL/min Estimated GFR (MDRD) (>60) mL/min BUN/Creatinine Ratio (14-18) Glucose (83-115) mg/dL Calcium (8.5-10.1) mg/dL Phosphorus (2.6-4.7) mg/dL Magnesium (1.8-2.4) mg/dl Total Bilirubin (0.2-1.0) mg/dL AST (15-37) U/L ALT (16-63) U/L Alkaline Phosphatase (46-116) U/L C-Reactive Protein (<1.0) mg/dL Total Protein (6.4-8.2) g/dl Albumin (3.4-5.0) g/dl Globulin gm/dL Albumin/Globulin Ratio (1-2) Procalcitonin 0.10 H (<0.10) ng/mL 10/28/20 Range/Units 05:26 WBC (4.23-9.07) K/mm3 RBC (4.63-6.08) M/mm3 Hgb (13.7-17.5) gm/dl Hct (40.1-51.0) % MCV (79.0-92.2) fl MCH (25.7-32.2) pg MCHC (32.2-35.5) g/dl RDW Std Deviation (35.1-43.9) fL Plt Count (163-337) K/mm3 MPV (9.4-12.3) fl Neut % (Auto) (34.0-67.9) % Lymph % (Auto) (21.8-53.1) % [place] % (Auto) (5.3-12.2) % Eos % (Auto) (0.8-7.0) Baso % (Auto) (0.1-1.2) % Neut # (Auto) (1.78-5.38) K/mm3 Lymph # (Auto) (1.32-3.57) K/mm3 [place] # (Auto) (0.30-0.82) K/mm3 Eos # (Auto) (0.04-0.54) K/mm3 Baso # (Auto) (0.01-0.08) K/mm3 D-Dimer, Quantitative (0.19-0.50) mg/L Sodium 137 (136-145) mEq/L Potassium 3.9 (3.5-5.1) mEq/L Chloride 103 (98-107) mEq/L Carbon Dioxide 25 (21-32) mEq/L Anion Gap 12.9 (5-15) BUN 22 H (7-18) mg/dL Creatinine 0.8 (0.7-1.3) mg/dL Est Cr Clr Drug Dosing 78.38 mL/min Estimated GFR (MDRD) > 60 (>60) mL/min BUN/Creatinine Ratio 27.5 H (14-18) Glucose 141 H (83-115) mg/dL Calcium 8.8 (8.5-10.1) mg/dL Phosphorus 3.0 (2.6-4.7) mg/dL Magnesium 2.0 (1.8-2.4) mg/dl Total Bilirubin 0.5 (0.2-1.0) mg/dL AST 59 H (15-37) U/L ALT 64 H (16-63) U/L Alkaline Phosphatase 87 (46-116) U/L C-Reactive Protein 10.3 H* (<1.0) mg/dL Total Protein 6.7 (6.4-8.2) g/dl Albumin 2.8 L (3.4-5.0) g/dl Globulin 3.9 gm/dL Albumin/Globulin Ratio 0.7 L (1-2) Procalcitonin (<0.10) ng/mL Ramirez Results Last 24 Hours: Microbiology 02/20/20 05:15 Gram Stain - Final Sputum - Expectorated Sputum Culture - Preliminary 02/19/20 20:25 Aerobic Blood Culture - Preliminary Blood NO GROWTH AFTER 1 DAY Anaerobic Blood Culture - Preliminary NO GROWTH AFTER 1 DAY Med Orders - Current: Current Medications Acetaminophen (Tylenol) 650 mg PO Q4H PRN PRN Reason: Pain (Mild 1-3)/fever Last Admin: 02/19/20 22:05 Dose: 650 mg Documented by: Al Hydroxide/Mg Hydroxide (Mag-Al Plus) 30 ml PO Q4H PRN PRN Reason: heart burn Last Admin: 02/20/20 15:49 Dose: 30 ml Documented by: Albuterol (Proventil Hfa) 0 gm INH Q4H PRN PRN Reason: Shortness of Breath Aspirin (Aspirin) 81 mg PO DAILY [facility] Last Admin: 02/21/20 08:13 Dose: 81 mg Documented by: Dexamethasone (Dexamethasone) 6 mg PO Q24H [facility] Stop: 02/28/20 21:01 Last Admin: 02/20/20 20:20 Dose: 6 mg Documented by: Enoxaparin Sodium (Lovenox) 40 mg SUBCUT Q12H [facility] Last Admin: 02/21/20 08:14 Dose: 40 mg Documented by: Remdesivir 100 mg/ Sodium (Chloride) 100 mls @ 100 mls/hr IV Q24H [facility] Stop: 02/23/20 21:59 Last Admin: 02/20/20 20:15 Dose: 100 mls/hr Documented by: Azithromycin 500 mg/ Sodium (Chloride) 250 mls @ 250 mls/hr IV Q24H [facility] Stop: 02/22/20 22:59 Last Admin: 02/20/20 22:48 Dose: 250 mls/hr Documented by: Ceftriaxone Sodium 2 gm/ (Sodium Chloride) 100 mls @ 200 mls/hr IV Q24H [facility] Stop: 02/24/20 22:29 Last Admin: 02/20/20 22:00 Dose: 200 mls/hr Documented by: Ondansetron HCl (Zofran) 4 mg IV Q4H PRN PRN Reason: Nausea/Vomiting Sodium Chloride (Saline Flush) 10 ml FLUSH ASDIRECTED PRN PRN Reason: Keep Vein Open Discontinued Medications Aspirin (Aspirin) 81 mg PO BEDTIME [facility] Last Admin: 02/20/20 20:20 Dose: 81 mg Documented by: Aspirin (Aspirin) 81 mg PO BEDTIME [facility] Remdesivir 200 mg/ Sodium (Chloride) 250 mls @ 250 mls/hr IV ONETIME ONE Stop: 02/19/20 21:59 Last Admin: 02/19/20 22:02 Dose: 250 mls/hr Documented by: Sodium Chloride (Normal Saline) 100 mls @ 25 mls/hr IV ASDIRECTED [facility] Last Admin: 02/19/20 23:46 Dose: 25 mls/hr Documented by: - Exam Quality Assessment: Supplemental Oxygen (High flow nasal cannula) General: Alert, Oriented HEENT: Pupils Equal, Mucous Membr. Moist/[place] Neck: Supple Lungs: No: Normal Respiratory Effort (Increased respiratory effort and rate with bibasilar rales) Cardiovascular: Regular Rate, Regular Rhythm GI/Abdominal Exam: Normal Bowel Sounds, Soft, Non-Tender, No Distention, No Abnormal Bruit Extremities: Normal Inspection, Normal Range of Motion, Non-Tender, No Pedal Edema, Normal Capillary Refill Peripheral Pulses: 2+: Posterior Tibial (L), Posterior Tibial (R), Dorsalis Pedis (L), Dorsalis Pedis (R) Skin: Warm, Dry, Intact Psy/Mental Status: Alert, Normal Affect, Normal Mood Sepsis Event Note - Evaluation Sepsis Screening Result: No Definite Risk - Focused Exam Vital Signs: Vital Signs Temp Pulse Resp BP Pulse Ox Pulse Ox 02/21/20 11:35 98.8 F 70 20 119/86 91 L 02/21/20 11:30 91 L 02/21/20 08:35 94 L 02/21/20 08:17 97.9 F 68 24 H 123/85 91 L 02/21/20 05:18 91 L 02/21/20 03:59 97.9 F 68 18 106/90 92 L - Problem List & Annotations (1) Pneumonia due to COVID-19 virus SNOMED Code(s): 211652055997471662 Code(s): U07.1 - COVID-19; J12.89 - OTHER VIRAL PNEUMONIA Status: Acute Current Visit: Yes (2) Respiratory distress SNOMED Code(s): 404508124 Code(s): R06.03 - ACUTE RESPIRATORY DISTRESS Status: Acute Current Visit: Yes - Problem List Review Problem List Initiated/Reviewed/Updated: Yes - My Orders Last 24 Hours: My Active Orders 02/20/20 15:43 Alum Hydrox/Mag Hydrox/Simeth [Mag-Al Plus] 30 ml PO Q4H PRN 02/20/20 21:00 Remdesivir (Eua) [Remdesivir (EUA)] 100 mg Sodium Chloride 0.9% [Normal Saline] 100 ml IV Q24H 02/20/20 21:08 Albuterol [Proventil HFA] See Dose Instructions INH Q4H PRN 02/20/20 21:09 RT Post Treatment Assessment [RC] Click to Edit RT Pre-Treatment Assessment [RC] Click to Edit 02/20/20 22:00 Azithromycin [Zithromax] 500 mg Sodium Chloride 0.9% [Normal Saline (AdvBag)] 250 ml IV Q24H cefTRIAXone [Rocephin] 2 gm Sodium Chloride 0.9% [Normal Saline] 100 ml IV Q24H 02/21/20 09:00 Aspirin 81 mg PO DAILY - Plan Plan:: Assessment 02/19/2020 * 74-year-old male with pneumonia secondary to COVID-19 directly admitted to the hospital after presenting to the clinic with cough, shortness of breath, fatigue, and hypoxemia. * Risk factors include older age, male sex, and obesity. He has had a history of hypertension in the past, but currently does not take his blood pressure medications. 02/20/2020 * Patient continues with treatment for his pneumonia secondary to COVID-19. He is currently on 3 L nasal cannula and his oxygen saturations are in the low 90s. * Blood pressure well controlled off medication. 02/21/2020 * Patient did have worsening of his respiratory status overnight. He is now on high flow nasal cannula at 60 L/min. He has improved over the last several hours. * WBC of 6.3, platelets 170, D-dimer 0.28, estimated GFR greater than 60, C- reactive protein decreased to 10.3 from 14.4 * Initial procalcitonin was 0.1 Plan * Admit to floor on telemetry and continuous pulse ox * Remdesivir day 3 of 5 days * Dexamethasone day 3 for up to 10 days. * Received 2 units convalescent plasma * Aspirin 81 mg daily * Lovenox 40 mg subcutaneously twice daily * CBC, CMP, mag, phosphorus, D-dimer, C-reactive protein in the morning * FiO2 to keep SPO2 between 88 and 94%. * CODE STATUS full code * Length of stay minimum of 5 days due to treatment with remdesivir.
[2020-02-21] MEDS: Aluminum Hydroxide/Magnesium Hydroxide/Simethicone Susp 30 ML Cup PO PRN ×2 (16:27→22:11)
[2020-02-21] MEDS: Dexamethasone 4 MG Tab PO SCH (20:22)
[2020-02-21] MEDS: REMDESIVIR 100 MG in Sodium Chloride 0.9% 100 ML IV SCH (20:22)
[2020-02-21] MEDS ORDERED: Aspirin 81 MG Tab.Chew PO SCH (21:00)
[2020-02-21] MEDS: cefTRIAXone 2 GM in Sodium Chloride 0.9% 100 ML IV SCH (21:29)
[2020-02-21] MEDS: Azithromycin 500 MG in Sodium Chloride 0.9% 250 ML IV SCH (22:04)
[2020-02-22] MEDS: Enoxaparin 40 MG/0.4 ML Syringe SUBCUT SCH ×2 (08:30→20:02)
[2020-02-22] MEDS: Aspirin 81 MG Tab.Chew PO SCH (08:30)
--- NOTE | 2020-02-22 14:18 | PCM.PN ---
- General Info Date of Service: 02/22/20 Admission Dx/Problem (Free Text): Admission Diagnosis/Problem Admission Diagnosis/Problem Hypoxia Subjective Update: Patient states that he is feeling better today he is up in his chair and his appetite has been good, but he has not been taking in enough protein. He is less short of breath. Functional Status: Reports: Pain Controlled - Review of Systems General: Reports: No Symptoms HEENT: Reports: No Symptoms Pulmonary: Reports: Shortness of Breath, Cough Cardiovascular: Reports: No Symptoms Gastrointestinal: Reports: No Symptoms Musculoskeletal: Reports: No Symptoms Skin: Reports: No Symptoms Neurological: Reports: No Symptoms Psychiatric: Reports: No Symptoms - Patient Data Vitals - Most Recent: Last Vital Signs Temp 97.9 F 02/22/20 11:14 Pulse 70 02/22/20 11:14 Resp 16 02/22/20 11:14 BP 113/69 02/22/20 11:14 Pulse Ox 91 L 02/22/20 12:00 Weight - Most Recent: 102.194 kg I&O - Last 24 Hours: Intake & Output 02/21/20 02/22/20 02/22/20 22:59 06:59 14:59 Intake Total 1620 1050 1422 Output Total 850 750 Balance 614 025 0390 Lab Results Last 24 Hours: Laboratory Results - last 24 hr 02/22/20 02/22/20 02/22/20 Range/Units 05:03 05:03 05:03 WBC 7.75 (4.23-9.07) K/mm3 RBC 4.25 L (4.63-6.08) M/mm3 Hgb 13.0 L (13.7-17.5) gm/dl Hct 39.1 L (40.1-51.0) % MCV 92.0 (79.0-92.2) fl MCH 30.6 (25.7-32.2) pg MCHC 33.2 (32.2-35.5) g/dl RDW Std Deviation 41.9 (35.1-43.9) fL Plt Count 201 (163-337) K/mm3 MPV 9.4 (9.4-12.3) fl Neut % (Auto) 85.7 H (34.0-67.9) % Lymph % (Auto) 8.4 L (21.8-53.1) % [place] % (Auto) 5.5 (5.3-12.2) % Eos % (Auto) 0 L (0.8-7.0) Baso % (Auto) 0.1 (0.1-1.2) % Neut # (Auto) 6.64 H (1.78-5.38) K/mm3 Lymph # (Auto) 0.65 L (1.32-3.57) K/mm3 [place] # (Auto) 0.43 (0.30-0.82) K/mm3 Eos # (Auto) 0.00 L (0.04-0.54) K/mm3 Baso # (Auto) 0.01 (0.01-0.08) K/mm3 Manual Slide Review Abnormal smear D-Dimer, Quantitative 0.25 (0.19-0.50) mg/L Sodium 137 (136-145) mEq/L Potassium 3.9 (3.5-5.1) mEq/L Chloride 104 (98-107) mEq/L Carbon Dioxide 26 (21-32) mEq/L Anion Gap 10.9 (5-15) BUN 22 H (7-18) mg/dL Creatinine 0.8 (0.7-1.3) mg/dL Est Cr Clr Drug Dosing 78.38 mL/min Estimated GFR (MDRD) > 60 (>60) mL/min BUN/Creatinine Ratio 27.5 H (14-18) Glucose 138 H (83-115) mg/dL Calcium 8.5 (8.5-10.1) mg/dL Phosphorus 3.2 (2.6-4.7) mg/dL Magnesium 2.1 (1.8-2.4) mg/dl Total Bilirubin 0.5 (0.2-1.0) mg/dL AST 67 H (15-37) U/L ALT 89 H (16-63) U/L Alkaline Phosphatase 80 (46-116) U/L C-Reactive Protein 5.2 H* (<1.0) mg/dL Total Protein 5.9 L (6.4-8.2) g/dl Albumin 2.4 L (3.4-5.0) g/dl Globulin 3.5 gm/dL Albumin/Globulin Ratio 0.7 L (1-2) Ramirez Results Last 24 Hours: Microbiology 02/19/20 20:25 Aerobic Blood Culture - Preliminary Blood NO GROWTH AFTER 2 DAYS Anaerobic Blood Culture - Preliminary NO GROWTH AFTER 2 DAYS 02/20/20 05:15 Gram Stain - Final Sputum - Expectorated Sputum Culture - Preliminary Med Orders - Current: Current Medications Acetaminophen (Tylenol) 650 mg PO Q4H PRN PRN Reason: Pain (Mild 1-3)/fever Last Admin: 02/19/20 22:05 Dose: 650 mg Documented by: Al Hydroxide/Mg Hydroxide (Mag-Al Plus) 30 ml PO Q4H PRN PRN Reason: heart burn Last Admin: 02/21/20 22:11 Dose: 30 ml Documented by: Albuterol (Proventil Hfa) 0 gm INH Q4H PRN PRN Reason: Shortness of Breath Aspirin (Aspirin) 81 mg PO DAILY [facility] Last Admin: 02/22/20 08:30 Dose: 81 mg Documented by: Dexamethasone (Dexamethasone) 6 mg PO Q24H [facility] Stop: 02/28/20 21:01 Last Admin: 02/21/20 20:22 Dose: 6 mg Documented by: Enoxaparin Sodium (Lovenox) 40 mg SUBCUT Q12H [facility] Last Admin: 02/22/20 08:30 Dose: 40 mg Documented by: Remdesivir 100 mg/ Sodium (Chloride) 100 mls @ 100 mls/hr IV Q24H [facility] Stop: 02/23/20 21:59 Last Admin: 02/21/20 20:22 Dose: 100 mls/hr Documented by: Azithromycin 500 mg/ Sodium (Chloride) 250 mls @ 250 mls/hr IV Q24H [facility] Stop: 02/22/20 22:59 Last Admin: 02/21/20 22:04 Dose: 250 mls/hr Documented by: Ceftriaxone Sodium 2 gm/ (Sodium Chloride) 100 mls @ 200 mls/hr IV Q24H [facility] Stop: 02/24/20 22:29 Last Admin: 02/21/20 21:29 Dose: 200 mls/hr Documented by: Ondansetron HCl (Zofran) 4 mg IV Q4H PRN PRN Reason: Nausea/Vomiting Sodium Chloride (Saline Flush) 10 ml FLUSH ASDIRECTED PRN PRN Reason: Keep Vein Open Discontinued Medications Aspirin (Aspirin) 81 mg PO BEDTIME [facility] Last Admin: 02/20/20 20:20 Dose: 81 mg Documented by: Aspirin (Aspirin) 81 mg PO BEDTIME [facility] Remdesivir 200 mg/ Sodium (Chloride) 250 mls @ 250 mls/hr IV ONETIME ONE Stop: 02/19/20 21:59 Last Admin: 02/19/20 22:02 Dose: 250 mls/hr Documented by: Sodium Chloride (Normal Saline) 100 mls @ 25 mls/hr IV ASDIRECTED ANGY Last Admin: 02/19/20 23:46 Dose: 25 mls/hr Documented by: - Exam Quality Assessment: Supplemental Oxygen (High flow nasal cannula) General: Alert, Oriented HEENT: Pupils Equal, Mucous Membr. Moist/[place] Neck: Supple Lungs: Rales. No: Normal Respiratory Effort (Improved. Mildly increased respiratory rate.) GI/Abdominal Exam: Normal Bowel Sounds, Soft, Non-Tender, No Distention Extremities: Normal Inspection, Normal Range of Motion, No Pedal Edema, Normal Capillary Refill Skin: Warm, Dry, Intact Neurological: No New Focal Deficit Psy/Mental Status: Alert, Normal Affect, Normal Mood Sepsis Event Note - Evaluation Sepsis Screening Result: No Definite Risk - Focused Exam Vital Signs: Vital Signs Temp Pulse Resp BP Pulse Ox Pulse Ox 02/22/20 12:00 91 L 02/22/20 11:42 98 02/22/20 11:14 97.9 F 70 16 113/69 91 L 02/22/20 08:59 94 L 02/22/20 08:43 93 L 02/22/20 07:24 98.2 F 65 18 116/76 84 L 02/22/20 06:08 94 L 02/22/20 04:09 98.1 F 63 20 119/82 91 L - Problem List & Annotations (1) Pneumonia due to COVID-19 virus SNOMED Code(s): 089550455066693935 Code(s): U07.1 - COVID-19; J12.89 - OTHER VIRAL PNEUMONIA Status: Acute Current Visit: Yes (2) Respiratory distress SNOMED Code(s): 808743451 Code(s): R06.03 - ACUTE RESPIRATORY DISTRESS Status: Acute Current Visit: Yes (3) Hypoalbuminemia SNOMED Code(s): 768024936 Code(s): E88.09 - OTH DISORDERS OF PLASMA-PROTEIN METABOLISM, NEC Status: Acute Current Visit: Yes - Problem List Review Problem List Initiated/Reviewed/Updated: Yes - Plan Plan:: Assessment 02/19/2020 * 74-year-old male with pneumonia secondary to COVID-19 directly admitted to the hospital after presenting to the clinic with cough, shortness of breath, fatigue, and hypoxemia. * Risk factors include older age, male sex, and obesity. He has had a history of hypertension in the past, but currently does not take his blood pressure medications. 02/20/2020 * Patient continues with treatment for his pneumonia secondary to COVID-19. He is currently on 3 L nasal cannula and his oxygen saturations are in the low 90s. * Blood pressure well controlled off medication. 02/21/2020 * Patient did have worsening of his respiratory status overnight. He is now on high flow nasal cannula at 60 L/min. He has improved over the last several hours. * WBC of 6.3, platelets 170, D-dimer 0.28, estimated GFR greater than 60, C- reactive protein decreased to 10.3 from 14.4 * Initial procalcitonin was 0.1 02/22/2020 * Improvement in respiratory failure. Able to wean today down to high flow nasal cannula at 60 L/min at 60%. * Normal WBC, D-dimer 0.25, CRP decreased to 5.2, AST 67, ALT 89, estimated GFR greater than 60, albumin down to 2.4 * Continues on remdesivir, dexamethasone, Rocephin, and azithromycin * Improving C-reactive protein Plan * Admit to floor on telemetry and continuous pulse ox * Remdesivir day 4 of 5 days * Dexamethasone day 4 for up to 10 days. * Received 2 units convalescent plasma * Rocephin day 3 of 5 * Azithromycin day 3 of 3 * Aspirin 81 mg daily * Decrease Lovenox to 40 mg subcutaneously daily * Continue to try to wean oxygen as tolerated * No labs tomorrow * FiO2 to keep SPO2 between 88 and 94%. * CODE STATUS full code * Length of stay greater than 96 hours due to treatment with remdesivir.
--- NOTE | 2020-02-22 15:47 | CR ---
PROCEDURE INFORMATION: Exam: XR Chest, 1 View Exam date and time: 02/20/2020 9:53 AM Age: 74 years old Clinical indication: Cough and fever; Patient HX: Suspected covid, fever, cough TECHNIQUE: Imaging protocol: XR of the chest Views: 1 view. COMPARISON: DX Chest 2V 02/19/2020 2:15 PM FINDINGS: Lungs: More shallow inspiration on the current exam. Bilateral airspace and interstitial opacities again identified and are more conspicuous today than they were yesterday. These are diffuse on the right and in the left mid and lower lung. This could be due in part to the more shallow inspiration or progression of disease. Pleural space: Unremarkable. No pleural effusion. No pneumothorax. Heart/Mediastinum: Stable right hilar prominence could be adenopathy. Vasculature: Aortic calcifications. Bones/joints: Unremarkable. Other findings: No effusion. IMPRESSION: 1. More shallow inspiration with increased conspicuity of bilateral interstitial and airspace opacities. 2. Possible right hilar adenopathy, stable since yesterday. Thank you for allowing us to participate in the care of your patient. Dictated and Authenticated by: Stacey Ayon MD 02/20/2020 11:33 AM Central Time ([place] & [place]) [place]
[2020-02-22] MEDS: Aluminum Hydroxide/Magnesium Hydroxide/Simethicone Susp 30 ML Cup PO PRN (19:51)
[2020-02-22] MEDS: REMDESIVIR 100 MG in Sodium Chloride 0.9% 100 ML IV SCH (20:00)
[2020-02-22] MEDS: Dexamethasone 4 MG Tab PO SCH (20:03)
[2020-02-22] MEDS: cefTRIAXone 2 GM in Sodium Chloride 0.9% 100 ML IV SCH (21:44)
[2020-02-22] MEDS: Azithromycin 500 MG in Sodium Chloride 0.9% 250 ML IV SCH (22:20)
[2020-02-23] MEDS: Enoxaparin 40 MG/0.4 ML Syringe SUBCUT SCH ×2 (08:19→21:03)
[2020-02-23] MEDS: Aspirin 81 MG Tab.Chew PO SCH (08:20)
--- NOTE | 2020-02-23 08:31 | PCM.PN ---
- General Info Date of Service: 02/23/20 Admission Dx/Problem (Free Text): Admission Diagnosis/Problem Admission Diagnosis/Problem Hypoxia Subjective Update: Patient continues to have improvement in symptoms and oxygen requirements. He has no specific complaints today. He is currently on high flow nasal cannula at 50 L/min and 55% FiO2. Functional Status: Reports: Pain Controlled - Review of Systems General: Reports: No Symptoms HEENT: Reports: No Symptoms Pulmonary: Reports: Shortness of Breath, Cough Cardiovascular: Reports: No Symptoms Gastrointestinal: Reports: No Symptoms Musculoskeletal: Reports: No Symptoms Psychiatric: Reports: No Symptoms - Patient Data Vitals - Most Recent: Last Vital Signs Temp 97.9 F 02/23/20 07:48 Pulse 59 L 02/23/20 07:48 Resp 20 02/23/20 03:15 BP 126/96 H 02/23/20 07:47 Pulse Ox 89 L 02/23/20 07:48 Weight - Most Recent: 102.829 kg I&O - Last 24 Hours: Intake & Output 02/22/20 02/23/20 02/23/20 22:59 06:59 14:59 Intake Total 1840 1250 Output Total 600 1500 Balance 1240 -250 Ramirez Results Last 24 Hours: Microbiology 02/19/20 20:25 Aerobic Blood Culture - Preliminary Blood NO GROWTH AFTER 3 DAYS Anaerobic Blood Culture - Preliminary NO GROWTH AFTER 3 DAYS 02/20/20 05:15 Gram Stain - Final Sputum - Expectorated Sputum Culture - Preliminary Med Orders - Current: Current Medications Acetaminophen (Tylenol) 650 mg PO Q4H PRN PRN Reason: Pain (Mild 1-3)/fever Last Admin: 02/19/20 22:05 Dose: 650 mg Documented by: Al Hydroxide/Mg Hydroxide (Mag-Al Plus) 30 ml PO Q4H PRN PRN Reason: heart burn Last Admin: 02/22/20 19:51 Dose: 30 ml Documented by: Albuterol (Proventil Hfa) 0 gm INH Q4H PRN PRN Reason: Shortness of Breath Aspirin (Aspirin) 81 mg PO DAILY [facility] Last Admin: 02/23/20 08:20 Dose: 81 mg Documented by: Dexamethasone (Dexamethasone) 6 mg PO Q24H [facility] Stop: 02/28/20 21:01 Last Admin: 02/22/20 20:03 Dose: 6 mg Documented by: Enoxaparin Sodium (Lovenox) 40 mg SUBCUT Q12H [facility] Last Admin: 02/23/20 08:19 Dose: 40 mg Documented by: Remdesivir 100 mg/ Sodium (Chloride) 100 mls @ 100 mls/hr IV Q24H [facility] Stop: 02/23/20 21:59 Last Admin: 02/22/20 20:00 Dose: 100 mls/hr Documented by: Ceftriaxone Sodium 2 gm/ (Sodium Chloride) 100 mls @ 200 mls/hr IV Q24H [facility] Stop: 02/24/20 22:29 Last Admin: 02/22/20 21:44 Dose: 200 mls/hr Documented by: Ondansetron HCl (Zofran) 4 mg IV Q4H PRN PRN Reason: Nausea/Vomiting Sodium Chloride (Saline Flush) 10 ml FLUSH ASDIRECTED PRN PRN Reason: Keep Vein Open Discontinued Medications Aspirin (Aspirin) 81 mg PO BEDTIME [facility] Last Admin: 02/20/20 20:20 Dose: 81 mg Documented by: Aspirin (Aspirin) 81 mg PO BEDTIME [facility] Remdesivir 200 mg/ Sodium (Chloride) 250 mls @ 250 mls/hr IV ONETIME ONE Stop: 02/19/20 21:59 Last Admin: 02/19/20 22:02 Dose: 250 mls/hr Documented by: Sodium Chloride (Normal Saline) 100 mls @ 25 mls/hr IV ASDIRECTED [facility] Last Admin: 02/19/20 23:46 Dose: 25 mls/hr Documented by: Azithromycin 500 mg/ Sodium (Chloride) 250 mls @ 250 mls/hr IV Q24H [facility] Stop: 02/22/20 22:59 Last Admin: 02/22/20 22:20 Dose: 250 mls/hr Documented by: - Exam Quality Assessment: Supplemental Oxygen (High flow nasal cannula) General: Alert, Oriented HEENT: Pupils Equal, Mucous Membr. Moist/[place] Neck: Supple Lungs: Clear to Auscultation (Other than mild rales in the right lower lobe), Normal Respiratory Effort Cardiovascular: Regular Rate, Regular Rhythm GI/Abdominal Exam: Normal Bowel Sounds, Soft, Non-Tender, No Distention, No Mass Extremities: Normal Inspection, Normal Range of Motion, Non-Tender, No Pedal Edema, Normal Capillary Refill Skin: Warm, Dry, Intact Psy/Mental Status: Alert, Normal Affect, Normal Mood Sepsis Event Note - Evaluation Sepsis Screening Result: No Definite Risk - Focused Exam Vital Signs: Vital Signs Temp Pulse Resp BP Pulse Ox Pulse Ox 02/23/20 07:48 97.9 F 59 L 89 L 02/23/20 07:47 58 L 126/96 H 90 L 02/23/20 06:04 91 L 02/23/20 03:15 97.9 F 54 L 20 120/88 88 L 02/22/20 23:39 98.4 F 67 20 125/71 84 L - Problem List & Annotations (1) Pneumonia due to COVID-19 virus SNOMED Code(s): 820305926355614992 Code(s): U07.1 - COVID-19; J12.89 - OTHER VIRAL PNEUMONIA Status: Acute Current Visit: Yes (2) Respiratory distress SNOMED Code(s): 516851353 Code(s): R06.03 - ACUTE RESPIRATORY DISTRESS Status: Acute Current Visit: Yes (3) Hypoalbuminemia SNOMED Code(s): 771544709 Code(s): E88.09 - [facility] DISORDERS OF PLASMA-PROTEIN METABOLISM, NEC Status: Acute Current Visit: Yes - Problem List Review Problem List Initiated/Reviewed/Updated: Yes - Plan Plan:: Assessment 02/19/2020 * 74-year-old male with pneumonia secondary to COVID-19 directly admitted to the hospital after presenting to the clinic with cough, shortness of breath, fatigue, and hypoxemia. * Risk factors include older age, male sex, and obesity. He has had a history of hypertension in the past, but currently does not take his blood pressure medications. 02/20/2020 * Patient continues with treatment for his pneumonia secondary to COVID-19. He is currently on 3 L nasal cannula and his oxygen saturations are in the low 90s. * Blood pressure well controlled off medication. 02/21/2020 * Patient did have worsening of his respiratory status overnight. He is now on high flow nasal cannula at 60 L/min. He has improved over the last several hours. * WBC of 6.3, platelets 170, D-dimer 0.28, estimated GFR greater than 60, C- reactive protein decreased to 10.3 from 14.4 * Initial procalcitonin was 0.1 02/22/2020 * Improvement in respiratory failure. Able to wean today down to high flow nasal cannula at 60 L/min at 60%. * Normal WBC, D-dimer 0.25, CRP decreased to 5.2, AST 67, ALT 89, estimated GFR greater than 60, albumin down to 2.4 * Continues on remdesivir, dexamethasone, Rocephin, and azithromycin * Improving C-reactive protein 02/23/2020 * Continue weaning of his high flow nasal cannula. Patient is generally improving. No labs drawn today. Plan * Admit to floor on telemetry and continuous pulse ox * Remdesivir day 5 of 5 days * Dexamethasone day 4 for up to 10 days. * Received 2 units convalescent plasma * Rocephin day 4 of 5 * Azithromycin 3-day course given * Aspirin 81 mg daily * Decrease Lovenox to 40 mg subcutaneously daily * Continue to try to wean oxygen as tolerated * Routine labs in the morning * FiO2 to keep SPO2 between 88 and 94%. Currently on high flow nasal cannula at 55 L nasal cannula at 50% FiO2. * CODE STATUS full code * Length of stay greater than 96 hours due to treatment with remdesivir.
[2020-02-23] MEDS: Dexamethasone 4 MG Tab PO SCH (21:02)
[2020-02-23] MEDS: Aluminum Hydroxide/Magnesium Hydroxide/Simethicone Susp 30 ML Cup PO PRN (21:04)
[2020-02-23] MEDS: REMDESIVIR 100 MG in Sodium Chloride 0.9% 100 ML IV SCH (21:04)
[2020-02-23] MEDS: cefTRIAXone 2 GM in Sodium Chloride 0.9% 100 ML IV SCH (22:38)
[2020-02-24] MEDS: Enoxaparin 40 MG/0.4 ML Syringe SUBCUT SCH ×2 (10:10→21:25)
[2020-02-24] MEDS: Aspirin 81 MG Tab.Chew PO SCH (10:11)
--- NOTE | 2020-02-24 11:09 | PCM.PN ---
- General Info Date of Service: 02/24/20 Admission Dx/Problem (Free Text): Admission Diagnosis/Problem Admission Diagnosis/Problem Hypoxia Subjective Update: Patient continues to improve symptomatically. He has less shortness of breath and cough. Oxygen still drops with activity. Functional Status: Reports: Pain Controlled - Review of Systems General: Reports: No Symptoms HEENT: Reports: No Symptoms Pulmonary: Reports: Shortness of Breath, Cough Cardiovascular: Reports: No Symptoms Gastrointestinal: Reports: No Symptoms Musculoskeletal: Reports: No Symptoms Neurological: Reports: No Symptoms Psychiatric: Reports: No Symptoms - Patient Data Vitals - Most Recent: Last Vital Signs Temp 99.3 F 02/24/20 09:03 Pulse 65 02/24/20 09:03 Resp 24 H 02/24/20 09:03 BP 111/73 02/24/20 09:03 Pulse Ox 84 L 02/24/20 09:03 Weight - Most Recent: 104.871 kg I&O - Last 24 Hours: Intake & Output 02/23/20 02/24/20 02/24/20 22:59 06:59 14:59 Intake Total 2260 900 200 Output Total 1250 Balance 2260 -350 200 Lab Results Last 24 Hours: Laboratory Results - last 24 hr 02/24/20 02/24/20 02/24/20 Range/Units 05:39 05:39 05:39 WBC 7.78 (4.23-9.07) K/mm3 RBC 4.27 L (4.63-6.08) M/mm3 Hgb 13.0 L (13.7-17.5) gm/dl Hct 39.1 L (40.1-51.0) % MCV 91.6 (79.0-92.2) fl MCH 30.4 (25.7-32.2) pg MCHC 33.2 (32.2-35.5) g/dl RDW Std Deviation 41.8 (35.1-43.9) fL Plt Count 220 (163-337) K/mm3 MPV 9.2 L (9.4-12.3) fl Neut % (Auto) 85.6 H (34.0-67.9) % Lymph % (Auto) 7.6 L (21.8-53.1) % Winn % (Auto) 5.8 (5.3-12.2) % Eos % (Auto) 0 L (0.8-7.0) Baso % (Auto) 0.1 (0.1-1.2) % Neut # (Auto) 6.66 H (1.78-5.38) K/mm3 Lymph # (Auto) 0.59 L (1.32-3.57) K/mm3 Winn # (Auto) 0.45 (0.30-0.82) K/mm3 Eos # (Auto) 0.00 L (0.04-0.54) K/mm3 Baso # (Auto) 0.01 (0.01-0.08) K/mm3 Manual Slide Review Abnormal smear D-Dimer, Quantitative 0.44 (0.19-0.50) mg/L Sodium 138 (136-145) mEq/L Potassium 4.2 (3.5-5.1) mEq/L Chloride 104 (98-107) mEq/L Carbon Dioxide 26 (21-32) mEq/L Anion Gap 12.2 (5-15) BUN 23 H (7-18) mg/dL Creatinine 0.9 (0.7-1.3) mg/dL Est Cr Clr Drug Dosing 69.67 mL/min Estimated GFR (MDRD) > 60 (>60) mL/min BUN/Creatinine Ratio 25.6 H (14-18) Glucose 140 H (83-115) mg/dL Calcium 8.1 L (8.5-10.1) mg/dL Phosphorus 3.3 (2.6-4.7) mg/dL Magnesium 1.9 (1.8-2.4) mg/dl Total Bilirubin 0.4 (0.2-1.0) mg/dL AST 44 H (15-37) U/L ALT 89 H (16-63) U/L Alkaline Phosphatase 72 (46-116) U/L C-Reactive Protein 2.8 H* (<1.0) mg/dL Total Protein 5.5 L (6.4-8.2) g/dl Albumin 2.3 L (3.4-5.0) g/dl Globulin 3.2 gm/dL Albumin/Globulin Ratio 0.7 L (1-2) Ramirez Results Last 24 Hours: Microbiology 02/19/20 20:25 Aerobic Blood Culture - Preliminary Blood NO GROWTH AFTER 4 DAYS Anaerobic Blood Culture - Preliminary NO GROWTH AFTER 4 DAYS 02/20/20 05:15 Gram Stain - Final Sputum - Expectorated Sputum Culture - Final Normal Kaylyn Med Orders - Current: Current Medications Acetaminophen (Tylenol) 650 mg PO Q4H PRN PRN Reason: Pain (Mild 1-3)/fever Last Admin: 02/19/20 22:05 Dose: 650 mg Documented by: Al Hydroxide/Mg Hydroxide (Mag-Al Plus) 30 ml PO Q4H PRN PRN Reason: heart burn Last Admin: 02/23/20 21:04 Dose: 30 ml Documented by: Albuterol (Proventil Hfa) 0 gm INH Q4H PRN PRN Reason: Shortness of Breath Aspirin (Aspirin) 81 mg PO DAILY [facility] Last Admin: 02/24/20 10:11 Dose: 81 mg Documented by: Dexamethasone (Dexamethasone) 6 mg PO Q24H [facility] Stop: 02/28/20 21:01 Last Admin: 02/23/20 21:02 Dose: 6 mg Documented by: Enoxaparin Sodium (Lovenox) 40 mg SUBCUT Q12H [facility] Last Admin: 02/24/20 10:10 Dose: 40 mg Documented by: Ceftriaxone Sodium 2 gm/ (Sodium Chloride) 100 mls @ 200 mls/hr IV Q24H [facility] Stop: 02/24/20 22:29 Last Admin: 02/23/20 22:38 Dose: 200 mls/hr Documented by: Ondansetron HCl (Zofran) 4 mg IV Q4H PRN PRN Reason: Nausea/Vomiting Sodium Chloride (Saline Flush) 10 ml FLUSH ASDIRECTED PRN PRN Reason: Keep Vein Open Discontinued Medications Aspirin (Aspirin) 81 mg PO BEDTIME [facility] Last Admin: 02/20/20 20:20 Dose: 81 mg Documented by: Aspirin (Aspirin) 81 mg PO BEDTIME [facility] Remdesivir 200 mg/ Sodium (Chloride) 250 mls @ 250 mls/hr IV ONETIME ONE Stop: 02/19/20 21:59 Last Admin: 02/19/20 22:02 Dose: 250 mls/hr Documented by: Remdesivir 100 mg/ Sodium (Chloride) 100 mls @ 100 mls/hr IV Q24H [facility] Stop: 02/23/20 21:59 Last Admin: 02/23/20 21:04 Dose: 100 mls/hr Documented by: Sodium Chloride (Normal Saline) 100 mls @ 25 mls/hr IV ASDIRECTED [facility] Last Admin: 02/19/20 23:46 Dose: 25 mls/hr Documented by: Azithromycin 500 mg/ Sodium (Chloride) 250 mls @ 250 mls/hr IV Q24H [facility] Stop: 02/22/20 22:59 Last Admin: 02/22/20 22:20 Dose: 250 mls/hr Documented by: - Exam Quality Assessment: Supplemental Oxygen (High flow nasal cannula) General: Alert, Oriented HEENT: Pupils Equal, Mucous Membr. Moist/[place] Neck: Supple Lungs: Normal Respiratory Effort (Mild increased respiratory effort), Rales (Bibasilar) Cardiovascular: Regular Rate, Regular Rhythm GI/Abdominal Exam: Normal Bowel Sounds, Soft, Non-Tender, No Distention Extremities: Normal Inspection, Normal Range of Motion, Non-Tender, No Pedal Edema, Normal Capillary Refill Peripheral Pulses: 2+: Posterior Tibial (L), Posterior Tibial (R), Dorsalis Pedis (L), Dorsalis Pedis (R) Neurological: No New Focal Deficit Psy/Mental Status: Alert Sepsis Event Note - Evaluation Sepsis Screening Result: No Definite Risk - Focused Exam Vital Signs: Vital Signs Temp Pulse Pulse Resp BP Pulse Ox Pulse Ox 02/24/20 09:03 99.3 F 65 24 H 111/73 84 L 02/24/20 08:56 91 L 02/24/20 08:31 90 L 02/24/20 03:40 56 L 89 L 02/24/20 03:37 92 L 02/24/20 03:29 98.2 F 60 20 98/59 L 82 L 02/24/20 00:00 68 93 L - Problem List & Annotations (1) Pneumonia due to COVID-19 virus SNOMED Code(s): 322888972737387120 Code(s): U07.1 - COVID-19; J12.89 - OTHER VIRAL PNEUMONIA Status: Acute Current Visit: Yes (2) Respiratory distress SNOMED Code(s): 941588489 Code(s): R06.03 - ACUTE RESPIRATORY DISTRESS Status: Acute Current Visit: Yes (3) Hypoalbuminemia SNOMED Code(s): 553426387 Code(s): E88.09 - OTH DISORDERS OF PLASMA-PROTEIN METABOLISM, NEC Status: Acute Current Visit: Yes - Problem List Review Problem List Initiated/Reviewed/Updated: Yes - Plan Plan:: Assessment 02/19/2020 * 74-year-old male with pneumonia secondary to COVID-19 directly admitted to the hospital after presenting to the clinic with cough, shortness of breath, fatigue, and hypoxemia. * Risk factors include older age, male sex, and obesity. He has had a history of hypertension in the past, but currently does not take his blood pressure medications. 02/20/2020 * Patient continues with treatment for his pneumonia secondary to COVID-19. He is currently on 3 L nasal cannula and his oxygen saturations are in the low 90s. * Blood pressure well controlled off medication. 02/21/2020 * Patient did have worsening of his respiratory status overnight. He is now on high flow nasal cannula at 60 L/min. He has improved over the last several hours. * WBC of 6.3, platelets 170, D-dimer 0.28, estimated GFR greater than 60, C- reactive protein decreased to 10.3 from 14.4 * Initial procalcitonin was 0.1 02/22/2020 * Improvement in respiratory failure. Able to wean today down to high flow nasal cannula at 60 L/min at 60%. * Normal WBC, D-dimer 0.25, CRP decreased to 5.2, AST 67, ALT 89, estimated GFR greater than 60, albumin down to 2.4 * Continues on remdesivir, dexamethasone, Rocephin, and azithromycin * Improving C-reactive protein 02/23/2020 * Continue weaning of his high flow nasal cannula. Patient is generally improving. No labs drawn today. 02/24/2020 * Patient is relatively stable on high flow nasal cannula. He has had a slight increase to 50 to 55% FiO2. We will continue to monitor this. * Labs continue to improve. C-reactive protein is 2.8 with a normal white count of 7.8. Renal function shows a estimated GFR greater than 60. * It continues to be compliant with incentive spirometry and flutter valve. Plan * Admit to floor on telemetry and continuous pulse ox * Completed remdesivir * Dexamethasone day 5 for up to 10 days. * Received 2 units convalescent plasma * Completed 5 days of Rocephin * Azithromycin 3-day course given * Aspirin 81 mg daily * Decrease Lovenox to 40 mg subcutaneously daily * Continue to try to wean oxygen as tolerated * Routine labs in the morning * FiO2 to keep SPO2 between 88 and 94%. Currently on high flow nasal cannula at 55 L nasal cannula at 55% FiO2. * CODE STATUS full code * Length of stay greater than 96 hours due to treatment with remdesivir.
[2020-02-24] MEDS: Dexamethasone 4 MG Tab PO SCH (21:24)
[2020-02-24] MEDS: cefTRIAXone 2 GM in Sodium Chloride 0.9% 100 ML IV SCH (21:26)
[2020-02-25] MEDS: Aspirin 81 MG Tab.Chew PO SCH (09:25)
[2020-02-25] MEDS: Enoxaparin 40 MG/0.4 ML Syringe SUBCUT SCH ×2 (09:25→22:01)
--- NOTE | 2020-02-25 19:12 | PCM.PN ---
- General Info Date of Service: 02/25/20 Admission Dx/Problem (Free Text): Admission Diagnosis/Problem Admission Diagnosis/Problem Hypoxia Subjective Update: Patient is more short of breath today. He is also more tearful and depressed about his condition. He has had 5 friends this year and one of Covid. His appetite is improved and his settings on high flow nasal cannula is stable. Functional Status: Reports: Pain Controlled - Review of Systems General: Reports: Fatigue HEENT: Reports: No Symptoms Pulmonary: Reports: Shortness of Breath, Cough Cardiovascular: Reports: No Symptoms Gastrointestinal: Reports: No Symptoms Musculoskeletal: Reports: No Symptoms Skin: Reports: No Symptoms Psychiatric: Reports: Depression - Patient Data Vitals - Most Recent: Last Vital Signs Temp 98.1 F 02/25/20 16:00 Pulse 73 02/25/20 12:00 Resp 20 02/25/20 16:00 BP 125/73 02/25/20 16:00 Pulse Ox 91 L 02/25/20 16:15 Weight - Most Recent: 104.734 kg I&O - Last 24 Hours: Intake & Output 02/25/20 02/25/20 02/25/20 06:59 14:59 22:59 Intake Total 840 Output Total Balance 840 Ramirez Results Last 24 Hours: Microbiology 02/19/20 20:25 Aerobic Blood Culture - Preliminary Blood NO GROWTH AFTER 5 DAYS Anaerobic Blood Culture - Preliminary NO GROWTH AFTER 5 DAYS Med Orders - Current: Current Medications Acetaminophen (Tylenol) 650 mg PO Q4H PRN PRN Reason: Pain (Mild 1-3)/fever Last Admin: 02/19/20 22:05 Dose: 650 mg Documented by: Al Hydroxide/Mg Hydroxide (Mag-Al Plus) 30 ml PO Q4H PRN PRN Reason: heart burn Last Admin: 02/23/20 21:04 Dose: 30 ml Documented by: Albuterol (Proventil Hfa) 0 gm INH Q4H PRN PRN Reason: Shortness of Breath Aspirin (Aspirin) 81 mg PO DAILY [facility] Last Admin: 02/25/20 09:25 Dose: 81 mg Documented by: Dexamethasone (Dexamethasone) 6 mg PO Q24H [facility] Stop: 02/28/20 21:01 Last Admin: 02/24/20 21:24 Dose: 6 mg Documented by: Enoxaparin Sodium (Lovenox) 40 mg SUBCUT Q12H [facility] Last Admin: 02/25/20 09:25 Dose: 40 mg Documented by: Ondansetron HCl (Zofran) 4 mg IV Q4H PRN PRN Reason: Nausea/Vomiting Sodium Chloride (Saline Flush) 10 ml FLUSH ASDIRECTED PRN PRN Reason: Keep Vein Open Discontinued Medications Aspirin (Aspirin) 81 mg PO BEDTIME [facility] Last Admin: 02/20/20 20:20 Dose: 81 mg Documented by: Aspirin (Aspirin) 81 mg PO BEDTIME [facility] Remdesivir 200 mg/ Sodium (Chloride) 250 mls @ 250 mls/hr IV ONETIME ONE Stop: 02/19/20 21:59 Last Admin: 02/19/20 22:02 Dose: 250 mls/hr Documented by: Remdesivir 100 mg/ Sodium (Chloride) 100 mls @ 100 mls/hr IV Q24H [facility] Stop: 02/23/20 21:59 Last Admin: 02/23/20 21:04 Dose: 100 mls/hr Documented by: Sodium Chloride (Normal Saline) 100 mls @ 25 mls/hr IV ASDIRECTED [facility] Last Admin: 02/19/20 23:46 Dose: 25 mls/hr Documented by: Azithromycin 500 mg/ Sodium (Chloride) 250 mls @ 250 mls/hr IV Q24H [facility] Stop: 02/22/20 22:59 Last Admin: 02/22/20 22:20 Dose: 250 mls/hr Documented by: Ceftriaxone Sodium 2 gm/ (Sodium Chloride) 100 mls @ 200 mls/hr IV Q24H [facility] Stop: 02/24/20 22:29 Last Admin: 02/24/20 21:26 Dose: 200 mls/hr Documented by: - Exam Quality Assessment: Supplemental Oxygen (High flow nasal cannula) General: Alert, Oriented HEENT: Pupils Equal, Mucous Membr. Moist/[place] Neck: Supple Lungs: Rales (Bibasilar). No: Normal Respiratory Effort (Increased rate and effort) Cardiovascular: Regular Rate, Regular Rhythm GI/Abdominal Exam: Normal Bowel Sounds, Soft, Non-Tender, No Distention Extremities: Normal Inspection, No Pedal Edema, Normal Capillary Refill Skin: Warm, Dry, Intact Neurological: No New Focal Deficit Psy/Mental Status: Alert, Normal Affect, Normal Mood Sepsis Event Note - Evaluation Sepsis Screening Result: No Definite Risk - Focused Exam Vital Signs: Vital Signs Temp Pulse Resp BP BP Pulse Ox Pulse Ox 02/25/20 16:15 91 L 02/25/20 16:00 98.1 F 20 125/73 87 L 02/25/20 12:00 98.1 F 73 20 107/63 95 02/25/20 11:36 69 92 L 02/25/20 09:41 122/64 02/25/20 09:23 76 92/49 L 87 L 02/25/20 08:39 91 L - Problem List & Annotations (1) Pneumonia due to COVID-19 virus SNOMED Code(s): 933718625780815589 Code(s): U07.1 - COVID-19; J12.89 - OTHER VIRAL PNEUMONIA Status: Acute Current Visit: Yes (2) Respiratory distress SNOMED Code(s): 995064431 Code(s): R06.03 - ACUTE RESPIRATORY DISTRESS Status: Acute Current Visit: Yes (3) Hypoalbuminemia SNOMED Code(s): 498230355 Code(s): E88.09 - [facility] DISORDERS OF PLASMA-PROTEIN METABOLISM, NEC Status: Acute Current Visit: Yes - Problem List Review Problem List Initiated/Reviewed/Updated: Yes - My Orders Last 24 Hours: My Active Orders 02/25/20 10:25 Patient Status [ADT] Routine 02/25/20 16:36 Chest 1V Frontal [CR] Routine 02/26/20 05:11 C-REACTIVE PROTEIN [CHEM] AM CBC WITH AUTO DIFF [HEME] AM CMP [COMPREHENSIVE METABOLIC PN,CMP] [CHEM] AM DD [D-DIMER QUANTITATIVE] [COAG] AM MAGNESIUM [CHEM] AM PHOSPHORUS [CHEM] AM - Plan Plan:: Assessment 02/19/2020 * 74-year-old male with pneumonia secondary to COVID-19 directly admitted to the hospital after presenting to the clinic with cough, shortness of breath, fatigue, and hypoxemia. * Risk factors include older age, male sex, and obesity. He has had a history of hypertension in the past, but currently does not take his blood pressure medications. 02/20/2020 * Patient continues with treatment for his pneumonia secondary to COVID-19. He is currently on 3 L nasal cannula and his oxygen saturations are in the low 90s. * Blood pressure well controlled off medication. 02/21/2020 * Patient did have worsening of his respiratory status overnight. He is now on high flow nasal cannula at 60 L/min. He has improved over the last several hours. * WBC of 6.3, platelets 170, D-dimer 0.28, estimated GFR greater than 60, C- reactive protein decreased to 10.3 from 14.4 * Initial procalcitonin was 0.1 02/22/2020 * Improvement in respiratory failure. Able to wean today down to high flow nasal cannula at 60 L/min at 60%. * Normal WBC, D-dimer 0.25, CRP decreased to 5.2, AST 67, ALT 89, estimated GFR greater than 60, albumin down to 2.4 * Continues on remdesivir, dexamethasone, Rocephin, and azithromycin * Improving C-reactive protein 02/23/2020 * Continue weaning of his high flow nasal cannula. Patient is generally improving. No labs drawn today. 02/24/2020 * Patient is relatively stable on high flow nasal cannula. He has had a slight increase to 50 to 55% FiO2. We will continue to monitor this. * Labs continue to improve. C-reactive protein is 2.8 with a normal white count of 7.8. Renal function shows a estimated GFR greater than 60. * It continues to be compliant with incentive spirometry and flutter valve. 02/25/2020 * Pulmonary status have mildly deteriorated in regards to work of breathing. He is essentially stable in regards to oxygen flow and percent oxygen. He has worsened over the last 24 hours with his incentive spirometry. He is also becoming more depressed. Saturations this morning were poor and we decided to move him to the ICU for closer observation. Patient had improvement in the setting in his respiratory status but worsening of his mental status. Patient became more depressed and upset. * Dexamethasone is likely making his mood worse. * Labs remain stable with white count 7.78, absolute neutrophils slightly elevated at 6.66, normal D-dimer at 0.44, decreasing C-reactive protein of 2.8, and normal GFR of greater than 60. Patient does have a continued decrease in his albumin to 2.3. Plan * Transfer to ICU * Completed remdesivir * Dexamethasone day 6 for up to 10 days. * Received 2 units convalescent plasma * Completed 5 days of Rocephin * Azithromycin 3-day course given * Aspirin 81 mg daily * Decrease Lovenox to 40 mg subcutaneously daily * Continue to try to wean oxygen as tolerated * Routine labs in the morning * FiO2 to keep SPO2 between 88 and 94%. Currently on high flow nasal cannula at 55 L nasal cannula at 55% FiO2. * CODE STATUS full code * Length of stay greater than 96 hours due to treatment with remdesivir.
[2020-02-25] MEDS: Dexamethasone 4 MG Tab PO SCH (22:01)
[2020-02-26] MEDS: Enoxaparin 40 MG/0.4 ML Syringe SUBCUT SCH ×2 (08:12→20:34)
[2020-02-26] MEDS: Aspirin 81 MG Tab.Chew PO SCH (08:13)
[2020-02-26] MEDS: Albuterol 6.7 GM Inhaler INH PRN ×4 (08:40→19:41)
[2020-02-26] MEDS ORDERED: Piperacillin/Tazobactam 4.5 GM in Sodium Chloride 0.9% 100 ML IV ONE (10:00)
[2020-02-26] MEDS ORDERED: Levofloxacin 750 MG Tab PO SCH (10:00)
[2020-02-26] MEDS ORDERED: Vancomycin 1.75 GM in Sodium Chloride 0.9% 500 ML IV ONE (10:30)
--- NOTE | 2020-02-26 10:47 | CR ---
PROCEDURE INFORMATION: Exam: XR Chest, 1 View Exam date and time: 02/25/2020 4:56 PM Age: 75 years old Clinical indication: Shortness of breath and other: Covid-19 positive TECHNIQUE: Imaging protocol: XR of the chest Views: 1 view. COMPARISON: CR Chest 1V Frontal 02/20/2020 9:53 AM FINDINGS: Lungs: Patchy airspace density is present within the periphery of the lungs bilaterally. The finding is concerning for multilobar pneumonia. Consider a follow-up/viral etiologies. This has increased significantly in a previous examination. Pleural space: Unremarkable. No pleural effusion. No pneumothorax. Heart/Mediastinum: Unremarkable. No cardiomegaly. Bones/joints: Unremarkable. IMPRESSION: 1. Worsening COVID-19 pneumonia. Thank you for allowing us to participate in the care of your patient. Dictated and Authenticated by: Oli Nunes MD 02/25/2020 6:58 PM Central Time ([place] & [place]) [email or web address]
[2020-02-26] MEDS: Saccharomyces Boulardii (Probiotic) 250 MG Cap PO SCH ×2 (14:55→20:33)
--- NOTE | 2020-02-26 15:56 | PCM.PN ---
- General Info Date of Service: 02/26/20 Admission Dx/Problem (Free Text): Admission Diagnosis/Problem Admission Diagnosis/Problem Hypoxia Subjective Update: Patient's oxygen status is improving, but patient is very upset last night and this morning. Patient's appetite has been poor and he has refused food. He denies any chest pain. Functional Status: Reports: Pain Controlled - Review of Systems General: Reports: No Symptoms HEENT: Reports: No Symptoms Pulmonary: Reports: Shortness of Breath, Cough Cardiovascular: Reports: No Symptoms Gastrointestinal: Reports: No Symptoms Musculoskeletal: Reports: No Symptoms Skin: Reports: No Symptoms Neurological: Reports: No Symptoms Psychiatric: Reports: No Symptoms - Patient Data Vitals - Most Recent: Last Vital Signs Temp 99.1 F 02/26/20 12:15 Pulse 80 02/26/20 12:15 Resp 24 H 02/26/20 12:15 BP 108/74 02/26/20 12:15 Pulse Ox 92 L 02/26/20 13:40 Weight - Most Recent: 230 lb 3.2 oz I&O - Last 24 Hours: Intake & Output 02/26/20 02/26/20 02/26/20 06:59 14:59 22:59 Intake Total 500 360 Balance 500 360 Imaging Impressions - Last 24 Hours: Chest x-ray 1 view on 02/25/2020: Increasing patchy airspace disease bilaterally concerning for multi lobar pneumonia. This is increased significantly. Lab Results Last 24 Hours: Laboratory Results - last 24 hr 02/26/20 02/26/20 02/26/20 Range/Units 05:25 05:25 05:25 WBC 8.43 (4.23-9.07) K/mm3 RBC 4.38 L (4.63-6.08) M/mm3 Hgb 13.3 L (13.7-17.5) gm/dl Hct 40.4 (40.1-51.0) % MCV 92.2 (79.0-92.2) fl MCH 30.4 (25.7-32.2) pg MCHC 32.9 (32.2-35.5) g/dl RDW Std Deviation 42.4 (35.1-43.9) fL Plt Count 260 (163-337) K/mm3 MPV 9.6 (9.4-12.3) fl Neut % (Auto) 89.3 H (34.0-67.9) % Lymph % (Auto) 5.2 L (21.8-53.1) % [place] % (Auto) 3.9 L (5.3-12.2) % Eos % (Auto) 0.1 L (0.8-7.0) Baso % (Auto) 0.1 (0.1-1.2) % Neut # (Auto) 7.52 H (1.78-5.38) K/mm3 Lymph # (Auto) 0.44 L (1.32-3.57) K/mm3 [place] # (Auto) 0.33 (0.30-0.82) K/mm3 Eos # (Auto) 0.01 L (0.04-0.54) K/mm3 Baso # (Auto) 0.01 (0.01-0.08) K/mm3 Manual Slide Review Abnormal smear D-Dimer, Quantitative 0.40 (0.19-0.50) mg/L Sodium 135 L (136-145) mEq/L Potassium 4.0 (3.5-5.1) mEq/L Chloride 101 (98-107) mEq/L Carbon Dioxide 24 (21-32) mEq/L Anion Gap 14.0 (5-15) BUN 22 H (7-18) mg/dL Creatinine 1.0 (0.7-1.3) mg/dL Est Cr Clr Drug Dosing 62.70 mL/min Estimated GFR (MDRD) > 60 (>60) mL/min BUN/Creatinine Ratio 22.0 H (14-18) Glucose 146 H (83-115) mg/dL Calcium 8.6 (8.5-10.1) mg/dL Phosphorus 3.6 (2.6-4.7) mg/dL Magnesium 2.0 (1.8-2.4) mg/dl Total Bilirubin 0.9 (0.2-1.0) mg/dL AST 29 (15-37) U/L ALT 65 H (16-63) U/L Alkaline Phosphatase 65 (46-116) U/L C-Reactive Protein 7.6 H* (<1.0) mg/dL Total Protein 5.8 L (6.4-8.2) g/dl Albumin 2.3 L (3.4-5.0) g/dl Globulin 3.5 gm/dL Albumin/Globulin Ratio 0.7 L (1-2) Ramirez Results Last 24 Hours: Microbiology 02/19/20 20:25 Aerobic Blood Culture - Preliminary Blood NO GROWTH AFTER 6 DAYS Anaerobic Blood Culture - Preliminary NO GROWTH AFTER 6 DAYS Med Orders - Current: Current Medications Acetaminophen (Tylenol) 650 mg PO Q4H PRN PRN Reason: Pain (Mild 1-3)/fever Last Admin: 02/19/20 22:05 Dose: 650 mg Documented by: Al Hydroxide/Mg Hydroxide (Mag-Al Plus) 30 ml PO Q4H PRN PRN Reason: heart burn Last Admin: 02/23/20 21:04 Dose: 30 ml Documented by: Albuterol (Proventil Hfa) 0 gm INH Q4H PRN PRN Reason: Shortness of Breath Last Admin: 02/26/20 13:40 Dose: 2 puff Documented by: Aspirin (Aspirin) 81 mg PO DAILY [facility] Last Admin: 02/26/20 08:13 Dose: 81 mg Documented by: Dexamethasone (Dexamethasone) 6 mg PO Q24H [facility] Stop: 02/28/20 21:01 Last Admin: 02/25/20 22:01 Dose: 6 mg Documented by: Enoxaparin Sodium (Lovenox) 40 mg SUBCUT Q12H [facility] Last Admin: 02/26/20 08:12 Dose: 40 mg Documented by: Piperacillin Sod/Tazobactam (Sod 4.5 gm/ Sodium Chloride) 100 mls @ 25 mls/hr IV Q8H [facility] Vancomycin HCl 1 gm/Vancomycin HCl 250 mg/ Sodium Chloride 250 mls @ 166.667 mls/hr IV Q12H [facility] Levofloxacin (Levaquin) 750 mg PO Q24H [facility] Last Admin: 02/26/20 09:57 Dose: 750 mg Documented by: Ondansetron HCl (Zofran) 4 mg IV Q4H PRN PRN Reason: Nausea/Vomiting Saccharomyces Boulardii (Florastor) 500 mg PO BID [facility] Last Admin: 02/26/20 14:55 Dose: Not Given Documented by: Sodium Chloride (Saline Flush) 10 ml FLUSH ASDIRECTED PRN PRN Reason: Keep Vein Open Vancomycin HCl (Pharmacy To Dose - Vancomycin) 1 dose .XX ASDIRECTED PRN PRN Reason: RX TO DOSE VANCO Discontinued Medications Aspirin (Aspirin) 81 mg PO BEDTIME [facility] Last Admin: 02/20/20 20:20 Dose: 81 mg Documented by: Aspirin (Aspirin) 81 mg PO BEDTIME [facility] Remdesivir 200 mg/ Sodium (Chloride) 250 mls @ 250 mls/hr IV ONETIME ONE Stop: 02/19/20 21:59 Last Admin: 02/19/20 22:02 Dose: 250 mls/hr Documented by: Remdesivir 100 mg/ Sodium (Chloride) 100 mls @ 100 mls/hr IV Q24H [facility] Stop: 02/23/20 21:59 Last Admin: 02/23/20 21:04 Dose: 100 mls/hr Documented by: Sodium Chloride (Normal Saline) 100 mls @ 25 mls/hr IV ASDIRECTED [facility] Last Admin: 02/19/20 23:46 Dose: 25 mls/hr Documented by: Azithromycin 500 mg/ Sodium (Chloride) 250 mls @ 250 mls/hr IV Q24H [facility] Stop: 02/22/20 22:59 Last Admin: 02/22/20 22:20 Dose: 250 mls/hr Documented by: Ceftriaxone Sodium 2 gm/ (Sodium Chloride) 100 mls @ 200 mls/hr IV Q24H [facility] Stop: 02/24/20 22:29 Last Admin: 02/24/20 21:26 Dose: 200 mls/hr Documented by: Piperacillin Sod/Tazobactam (Sod 4.5 gm/ Sodium Chloride) 100 mls @ 200 mls/hr IV ONETIME ONE Stop: 02/26/20 10:29 Last Admin: 02/26/20 09:58 Dose: 200 mls/hr Documented by: Vancomycin HCl 1.75 gm/ Sodium (Chloride) 500 mls @ 250 mls/hr IV ONETIME ONE Stop: 02/26/20 12:29 Last Admin: 02/26/20 11:48 Dose: 250 mls/hr Documented by: - Exam Quality Assessment: Supplemental Oxygen General: Alert, Oriented HEENT: Pupils Equal, Mucous Membr. Moist/[place] Neck: Supple Lungs: Rales. No: Normal Respiratory Effort (Increased respiratory rate and effort) Cardiovascular: Regular Rate, Regular Rhythm GI/Abdominal Exam: Normal Bowel Sounds, Soft, Non-Tender, No Distention Extremities: Normal Inspection, Normal Range of Motion, Non-Tender, No Pedal Edema, Normal Capillary Refill Skin: Warm, Dry, Intact Psy/Mental Status: Alert, Normal Affect, Normal Mood Sepsis Event Note - Evaluation Sepsis Screening Result: No Definite Risk - Focused Exam Vital Signs: Vital Signs Temp Temp Pulse Resp BP BP Pulse Ox 02/26/20 13:40 02/26/20 12:39 02/26/20 12:15 99.1 F 80 24 H 108/74 89 L 02/26/20 12:00 02/26/20 10:00 91 L 02/26/20 09:20 02/26/20 09:00 90 L 02/26/20 08:41 02/26/20 08:11 123/80 91 L 02/26/20 08:10 97.7 F 94 20 123/80 91 L 02/26/20 08:00 92 87 L 02/26/20 07:00 81 84 L 02/26/20 06:25 81 87 L 02/26/20 05:00 77 89 L 02/26/20 04:05 73 133/98 H 90 L 02/26/20 04:04 79 86 L 02/26/20 04:00 18 133/98 H 88 L Pulse Ox 02/26/20 13:40 92 L 02/26/20 12:39 90 L 02/26/20 12:15 02/26/20 12:00 92 L 02/26/20 10:00 02/26/20 09:20 88 L 02/26/20 09:00 02/26/20 08:41 91 L 02/26/20 08:11 02/26/20 08:10 02/26/20 08:00 02/26/20 07:00 02/26/20 06:25 02/26/20 05:00 02/26/20 04:05 02/26/20 04:04 02/26/20 04:00 - Problem List & Annotations (1) Pneumonia due to COVID-19 virus SNOMED Code(s): 405331309392787957 Code(s): U07.1 - COVID-19; J12.89 - OTHER VIRAL PNEUMONIA Status: Acute Current Visit: Yes (2) Respiratory distress SNOMED Code(s): 466783053 Code(s): R06.03 - ACUTE RESPIRATORY DISTRESS Status: Acute Current Visit: Yes (3) Hypoalbuminemia SNOMED Code(s): 960821045 Code(s): E88.09 - OTH DISORDERS OF PLASMA-PROTEIN METABOLISM, NEC Status: Acute Current Visit: Yes - Problem List Review Problem List Initiated/Reviewed/Updated: Yes - My Orders Last 24 Hours: My Active Orders 02/26/20 08:47 PROCALCITONIN [REF] Routine 02/26/20 09:28 Patient Status [ADT] Routine 02/26/20 09:30 Pharmacy to Dose - Vancomycin 1 dose .XX ASDIRECTED PRN 02/26/20 10:00 levoFLOXacin [Levaquin] 750 mg PO Q24H 02/26/20 10:45 Saccharomyces Boulardii [Florastor] 500 mg PO BID 02/26/20 18:00 Piperacillin/Tazobactam [Piperacil-Tazobact] 4.5 gm Sodium Chloride 0.9% [Normal Saline] 100 ml IV Q8H 02/26/20 22:30 Vancomycin 1 gm Vancomycin 250 mg Sodium Chloride 0.9% [Normal Saline] 250 ml IV Q12H 02/27/20 21:30 VANCOMYCIN TROUGH [CHEM] Timed - Plan Plan:: Assessment 02/19/2020 * 74-year-old male with pneumonia secondary to COVID-19 directly admitted to the hospital after presenting to the clinic with cough, shortness of breath, fatigue, and hypoxemia. * Risk factors include older age, male sex, and obesity. He has had a history of hypertension in the past, but currently does not take his blood pressure medications. 02/20/2020 * Patient continues with treatment for his pneumonia secondary to COVID-19. He is currently on 3 L nasal cannula and his oxygen saturations are in the low 90s. * Blood pressure well controlled off medication. 02/21/2020 * Patient did have worsening of his respiratory status overnight. He is now on high flow nasal cannula at 60 L/min. He has improved over the last several hours. * WBC of 6.3, platelets 170, D-dimer 0.28, estimated GFR greater than 60, C- reactive protein decreased to 10.3 from 14.4 * Initial procalcitonin was 0.1 02/22/2020 * Improvement in respiratory failure. Able to wean today down to high flow nasal cannula at 60 L/min at 60%. * Normal WBC, D-dimer 0.25, CRP decreased to 5.2, AST 67, ALT 89, estimated GFR greater than 60, albumin down to 2.4 * Continues on remdesivir, dexamethasone, Rocephin, and azithromycin * Improving C-reactive protein 02/23/2020 * Continue weaning of his high flow nasal cannula. Patient is generally improving. No labs drawn today. 02/24/2020 * Patient is relatively stable on high flow nasal cannula. He has had a slight increase to 50 to 55% FiO2. We will continue to monitor this. * Labs continue to improve. C-reactive protein is 2.8 with a normal white count of 7.8. Renal function shows a estimated GFR greater than 60. * It continues to be compliant with incentive spirometry and flutter valve. 02/25/2020 * Pulmonary status have mildly deteriorated in regards to work of breathing. He is essentially stable in regards to oxygen flow and percent oxygen. He has worsened over the last 24 hours with his incentive spirometry. He is also becoming more depressed. Saturations this morning were poor and we decided to move him to the ICU for closer observation. Patient had improvement in the setting in his respiratory status but worsening of his mental status. Patient became more depressed and upset. * Dexamethasone is likely making his mood worse. * Labs remain stable with white count 7.78, absolute neutrophils slightly elevated at 6.66, normal D-dimer at 0.44, decreasing C-reactive protein of 2.8, and normal GFR of greater than 60. Patient does have a continued decrease in his albumin to 2.3. 02/26/2020 * Patient's respiratory status is essentially stable from yesterday, but worse than admission. He is down to 50 L high flow O2 at 40% and his saturations are in the upper 80s to low 90s. He continues to use his incentive spirometer and he has been lying on his stomach more proning. This seems to have made a difference in his oxygenation. * Chest x-ray clearly worsened. This concerns me not just for worsening Covid pneumonia, but for healthcare associated pneumonia. * White blood cell count is increasing at 8.4, which is normal, absolute neutrophils are high at 7.52, and there is 1+ toxic granulation. * This appears to be worsening pneumonia and possibly bacterial component. He is having a better oxygenation and transfer to the ICU appears to have really affected him emotionally. Patient had a close friend that in our ICU at the beginning of the Covid pandemic and this is likely worrying him greatly. Plan * Transfer back to medical floor on telemetry and continuous pulse ox * Start antibiotic coverage for healthcare associated pneumonia. Levaquin, Zosyn, and vancomycin. * Start probiotics * Completed remdesivir * Dexamethasone day 7 for up to 10 days. * Received 2 units convalescent plasma * Completed 5 days of Rocephin * Azithromycin 3-day course given * Aspirin 81 mg daily * Lovenox to 40 mg subcutaneously daily * Continue to try to wean oxygen as tolerated * Routine labs in the morning * FiO2 to keep SPO2 between 88 and 94%. Currently on high flow nasal cannula at 50 L nasal cannula at 40% FiO2. * CODE STATUS full code * Length of stay greater than 96 hours due to treatment with remdesivir.
[2020-02-26] MEDS: Piperacillin/Tazobactam 4.5 GM in Sodium Chloride 0.9% 100 ML IV SCH (17:12)
[2020-02-26] MEDS: LORazepam 0.5 MG Tab PO PRN (17:14)
[2020-02-26] MEDS: Dexamethasone 4 MG Tab PO SCH (20:33)
[2020-02-26] MEDS ORDERED: Vancomycin 1 GM, Vancomycin 250 MG in Sodium Chloride 0.9% 250 ML IV SCH (22:30)
[2020-02-27] MEDS: Piperacillin/Tazobactam 4.5 GM in Sodium Chloride 0.9% 100 ML IV SCH (02:59)
[2020-02-27] MEDS: Albuterol 6.7 GM Inhaler INH PRN ×2 (05:56→13:48)
[2020-02-27] MEDS: Saccharomyces Boulardii (Probiotic) 250 MG Cap PO SCH ×2 (08:38→20:26)
[2020-02-27] MEDS: Enoxaparin 40 MG/0.4 ML Syringe SUBCUT SCH ×2 (08:38→20:26)
[2020-02-27] MEDS: Aspirin 81 MG Tab.Chew PO SCH (08:38)
[2020-02-27] MEDS ORDERED: Magnesium Hydroxide 400 MG/5 ML Susp 30 ML Cup PO ONE (09:00)
--- NOTE | 2020-02-27 10:53 | CR ---
PROCEDURE INFORMATION: Exam: XR Chest, 1 View Exam date and time: 02/27/2020 8:36 AM Age: 75 years old Clinical indication: Other: Hypoxemia, covid-19 positive TECHNIQUE: Imaging protocol: XR of the chest Views: 1 view. COMPARISON: CR Chest 1V Frontal 02/25/2020 4:56 PM FINDINGS: Lungs: There are again patchy bilateral airspace opacities. These are mildly increasing in the bilateral upper lung [place]. Pleural space: Unremarkable. No pleural effusion. No pneumothorax. Heart/Mediastinum: The cardiomediastinal silhouette is fairly stable in appearance. Bones/joints: Degenerative changes again involve the spine. IMPRESSION: Patchy bilateral airspace opacities, mildly increasing in the bilateral upper lung [place] as compared with 02/25/20. Thank you for allowing us to participate in the care of your patient. Dictated and Authenticated by: Alli Hutchinson MD 02/27/2020 10:26 AM Central Time ([place] & [place]) MTDD
[2020-02-27] MEDS: LORazepam 0.5 MG Tab PO PRN ×2 (12:39→20:26)
--- NOTE | 2020-02-27 19:09 | PCM.PN ---
- General Info Date of Service: 02/27/20 Admission Dx/Problem (Free Text): Admission Diagnosis/Problem Admission Diagnosis/Problem Hypoxia Subjective Update: Patient is in a much better mood today. He continues on high flow nasal cannula. He denies any fever. He complains of shortness of breath and cough. Appetite is good, but he does complain about the food. Functional Status: Reports: Pain Controlled - Review of Systems General: Reports: No Symptoms HEENT: Reports: No Symptoms Pulmonary: Reports: Shortness of Breath, Cough Cardiovascular: Reports: No Symptoms Gastrointestinal: Reports: No Symptoms Musculoskeletal: Reports: No Symptoms Psychiatric: Reports: No Symptoms - Patient Data Vitals - Most Recent: Last Vital Signs Temp 98.8 F 02/27/20 16:39 Pulse 75 02/27/20 16:39 Resp 18 02/27/20 16:39 BP 116/84 02/27/20 16:39 Pulse Ox 90 L 02/27/20 16:39 Weight - Most Recent: 230 lb 3.2 oz I&O - Last 24 Hours: Intake & Output 02/27/20 02/27/20 02/27/20 06:59 14:59 22:59 Intake Total 176 220 1255 Output Total 400 400 Balance 400 940 800 Lab Results Last 24 Hours: Laboratory Results - last 24 hr 02/26/20 02/27/20 02/27/20 Range/Units 08:47 05:16 05:16 WBC 8.03 (4.23-9.07) K/mm3 RBC 4.22 L (4.63-6.08) M/mm3 Hgb 12.7 L (13.7-17.5) gm/dl Hct 39.5 L (40.1-51.0) % MCV 93.6 H (79.0-92.2) fl MCH 30.1 (25.7-32.2) pg MCHC 32.2 (32.2-35.5) g/dl RDW Std Deviation 44.1 H (35.1-43.9) fL Plt Count 270 (163-337) K/mm3 MPV 9.8 (9.4-12.3) fl Neut % (Auto) 90.7 H (34.0-67.9) % Lymph % (Auto) 4.2 L (21.8-53.1) % [place] % (Auto) 4.1 L (5.3-12.2) % Eos % (Auto) 0 L (0.8-7.0) Baso % (Auto) 0.1 (0.1-1.2) % Neut # (Auto) 7.28 H (1.78-5.38) K/mm3 Lymph # (Auto) 0.34 L (1.32-3.57) K/mm3 [place] # (Auto) 0.33 (0.30-0.82) K/mm3 Eos # (Auto) 0.00 L (0.04-0.54) K/mm3 Baso # (Auto) 0.01 (0.01-0.08) K/mm3 Manual Slide Review Abnormal smear D-Dimer, Quantitative 0.26 (0.19-0.50) mg/L Sodium (136-145) mEq/L Potassium (3.5-5.1) mEq/L Chloride (98-107) mEq/L Carbon Dioxide (21-32) mEq/L Anion Gap (5-15) BUN (7-18) mg/dL Creatinine (0.7-1.3) mg/dL Est Cr Clr Drug Dosing mL/min Estimated GFR (MDRD) (>60) mL/min BUN/Creatinine Ratio (14-18) Glucose (83-115) mg/dL Calcium (8.5-10.1) mg/dL Phosphorus (2.6-4.7) mg/dL Magnesium (1.8-2.4) mg/dl Total Bilirubin (0.2-1.0) mg/dL AST (15-37) U/L ALT (16-63) U/L Alkaline Phosphatase (46-116) U/L C-Reactive Protein (<1.0) mg/dL Total Protein (6.4-8.2) g/dl Albumin (3.4-5.0) g/dl Globulin gm/dL Albumin/Globulin Ratio (1-2) Procalcitonin <0.05 (<0.10) ng/mL 02/27/20 Range/Units 05:16 WBC (4.23-9.07) K/mm3 RBC (4.63-6.08) M/mm3 Hgb (13.7-17.5) gm/dl Hct (40.1-51.0) % MCV (79.0-92.2) fl MCH (25.7-32.2) pg MCHC (32.2-35.5) g/dl RDW Std Deviation (35.1-43.9) fL Plt Count (163-337) K/mm3 MPV (9.4-12.3) fl Neut % (Auto) (34.0-67.9) % Lymph % (Auto) (21.8-53.1) % [place] % (Auto) (5.3-12.2) % Eos % (Auto) (0.8-7.0) Baso % (Auto) (0.1-1.2) % Neut # (Auto) (1.78-5.38) K/mm3 Lymph # (Auto) (1.32-3.57) K/mm3 [place] # (Auto) (0.30-0.82) K/mm3 Eos # (Auto) (0.04-0.54) K/mm3 Baso # (Auto) (0.01-0.08) K/mm3 Manual Slide Review D-Dimer, Quantitative (0.19-0.50) mg/L Sodium 139 (136-145) mEq/L Potassium 4.3 (3.5-5.1) mEq/L Chloride 104 (98-107) mEq/L Carbon Dioxide 24 (21-32) mEq/L Anion Gap 15.3 H (5-15) BUN 24 H (7-18) mg/dL Creatinine 1.0 (0.7-1.3) mg/dL Est Cr Clr Drug Dosing 62.70 mL/min Estimated GFR (MDRD) > 60 (>60) mL/min BUN/Creatinine Ratio 24.0 H (14-18) Glucose 150 H (83-115) mg/dL Calcium 8.4 L (8.5-10.1) mg/dL Phosphorus 3.7 (2.6-4.7) mg/dL Magnesium 1.9 (1.8-2.4) mg/dl Total Bilirubin 0.7 (0.2-1.0) mg/dL AST 25 (15-37) U/L ALT 55 (16-63) U/L Alkaline Phosphatase 64 (46-116) U/L C-Reactive Protein 8.4 H* (<1.0) mg/dL Total Protein 5.8 L (6.4-8.2) g/dl Albumin 2.1 L (3.4-5.0) g/dl Globulin 3.7 gm/dL Albumin/Globulin Ratio 0.6 L (1-2) Procalcitonin (<0.10) ng/mL Ramirez Results Last 24 Hours: Microbiology 02/19/20 20:25 Aerobic Blood Culture - Final Blood NO GROWTH AFTER 7 DAYS Anaerobic Blood Culture - Final NO GROWTH AFTER 7 DAYS Med Orders - Current: Current Medications Acetaminophen (Tylenol) 650 mg PO Q4H PRN PRN Reason: Pain (Mild 1-3)/fever Last Admin: 02/19/20 22:05 Dose: 650 mg Documented by: Al Hydroxide/Mg Hydroxide (Mag-Al Plus) 30 ml PO Q4H PRN PRN Reason: heart burn Last Admin: 02/23/20 21:04 Dose: 30 ml Documented by: Albuterol (Proventil Hfa) 0 gm INH Q4H PRN PRN Reason: Shortness of Breath Last Admin: 02/27/20 13:48 Dose: 2 puff Documented by: Aspirin (Aspirin) 81 mg PO DAILY REPLACED BY [facility] Last Admin: 02/27/20 08:38 Dose: 81 mg Documented by: Dexamethasone (Dexamethasone) 6 mg PO Q24H REPLACED BY [facility] Stop: 02/28/20 21:01 Last Admin: 02/26/20 20:33 Dose: 6 mg Documented by: Enoxaparin Sodium (Lovenox) 40 mg SUBCUT Q12H REPLACED BY [facility] Last Admin: 02/27/20 08:38 Dose: 40 mg Documented by: Lorazepam (Ativan) 0.5 mg PO Q4H PRN PRN Reason: Anxiety Last Admin: 02/27/20 12:39 Dose: 0.5 mg Documented by: Ondansetron HCl (Zofran) 4 mg IV Q4H PRN PRN Reason: Nausea/Vomiting Saccharomyces Boulardii (Florastor) 500 mg PO BID REPLACED BY [facility] Last Admin: 02/27/20 08:38 Dose: 500 mg Documented by: Sodium Chloride (Saline Flush) 10 ml FLUSH ASDIRECTED PRN PRN Reason: Keep Vein Open Discontinued Medications Aspirin (Aspirin) 81 mg PO BEDTIME REPLACED BY [facility] Last Admin: 02/20/20 20:20 Dose: 81 mg Documented by: Aspirin (Aspirin) 81 mg PO BEDTIME REPLACED BY [facility] Remdesivir 200 mg/ Sodium (Chloride) 250 mls @ 250 mls/hr IV ONETIME ONE Stop: 02/19/20 21:59 Last Admin: 02/19/20 22:02 Dose: 250 mls/hr Documented by: Remdesivir 100 mg/ Sodium (Chloride) 100 mls @ 100 mls/hr IV Q24H REPLACED BY [facility] Stop: 02/23/20 21:59 Last Admin: 02/23/20 21:04 Dose: 100 mls/hr Documented by: Sodium Chloride (Normal Saline) 100 mls @ 25 mls/hr IV ASDIRECTED REPLACED BY [facility] Last Admin: 02/19/20 23:46 Dose: 25 mls/hr Documented by: Azithromycin 500 mg/ Sodium (Chloride) 250 mls @ 250 mls/hr IV Q24H REPLACED BY [facility] Stop: 02/22/20 22:59 Last Admin: 02/22/20 22:20 Dose: 250 mls/hr Documented by: Ceftriaxone Sodium 2 gm/ (Sodium Chloride) 100 mls @ 200 mls/hr IV Q24H REPLACED BY [facility] Stop: 02/24/20 22:29 Last Admin: 02/24/20 21:26 Dose: 200 mls/hr Documented by: Piperacillin Sod/Tazobactam (Sod 4.5 gm/ Sodium Chloride) 100 mls @ 200 mls/hr IV ONETIME ONE Stop: 02/26/20 10:29 Last Admin: 02/26/20 09:58 Dose: 200 mls/hr Documented by: Piperacillin Sod/Tazobactam (Sod 4.5 gm/ Sodium Chloride) 100 mls @ 25 mls/hr IV Q8H REPLACED BY [facility] Last Admin: 02/27/20 02:59 Dose: 25 mls/hr Documented by: Vancomycin HCl 1.75 gm/ Sodium (Chloride) 500 mls @ 250 mls/hr IV ONETIME ONE Stop: 02/26/20 12:29 Last Admin: 02/26/20 11:48 Dose: 250 mls/hr Documented by: Vancomycin HCl 1 gm/Vancomycin HCl 250 mg/ Sodium Chloride 250 mls @ 166.667 mls/hr IV Q12H REPLACED BY [facility] Last Admin: 02/26/20 22:51 Dose: 166.667 mls/hr Documented by: Levofloxacin (Levaquin) 750 mg PO Q24H REPLACED BY [facility] Last Admin: 02/26/20 09:57 Dose: 750 mg Documented by: Magnesium Hydroxide (Milk Of Magnesia) 30 ml PO ONETIME ONE Stop: 02/27/20 09:01 Last Admin: 02/27/20 08:38 Dose: 30 ml Documented by: Vancomycin HCl (Pharmacy To Dose - Vancomycin) 1 dose .XX ASDIRECTED PRN PRN Reason: RX TO DOSE VANCO - Exam Quality Assessment: Supplemental Oxygen (High flow nasal cannula) General: Alert, Oriented HEENT: Pupils Equal, Mucous Membr. Moist/[place] Neck: Supple Lungs: Rales. No: Normal Respiratory Effort (Increased respiratory rate) Cardiovascular: Regular Rate, Regular Rhythm GI/Abdominal Exam: Normal Bowel Sounds, Soft, Non-Tender, No Organomegaly, No Distention, No Abnormal Bruit Extremities: Normal Inspection, Normal Range of Motion, Non-Tender, No Pedal Edema, Normal Capillary Refill Skin: Warm, Dry, Intact Neurological: No New Focal Deficit Psy/Mental Status: Alert, Normal Affect, Normal Mood Sepsis Event Note - Evaluation Sepsis Screening Result: No Definite Risk - Focused Exam Vital Signs: Vital Signs Temp Pulse Resp BP Pulse Ox Pulse Ox 02/27/20 16:39 98.8 F 75 18 116/84 90 L 02/27/20 16:06 91 L 02/27/20 13:49 90 L 02/27/20 12:11 78 20 143/82 H 89 L 02/27/20 09:17 95 02/27/20 08:56 96 02/27/20 08:45 98.8 F 64 94 L 02/27/20 07:45 90 L - Problem List & Annotations (1) Pneumonia due to COVID-19 virus SNOMED Code(s): 988630633347005144 Code(s): U07.1 - COVID-19; J12.89 - OTHER VIRAL PNEUMONIA Status: Acute Current Visit: Yes (2) Respiratory distress SNOMED Code(s): 178945789 Code(s): R06.03 - ACUTE RESPIRATORY DISTRESS Status: Acute Current Visit: Yes (3) Hypoalbuminemia SNOMED Code(s): 440522585 Code(s): E88.09 - OTH DISORDERS OF PLASMA-PROTEIN METABOLISM, NEC Status: Acute Current Visit: Yes - Problem List Review Problem List Initiated/Reviewed/Updated: Yes - My Orders Last 24 Hours: My Active Orders 02/28/20 05:11 C-REACTIVE PROTEIN [CHEM] AM CBC WITH AUTO DIFF [HEME] AM CMP [COMPREHENSIVE METABOLIC PN,CMP] [CHEM] AM DD [D-DIMER QUANTITATIVE] [COAG] AM MAGNESIUM [CHEM] AM PHOSPHORUS [CHEM] AM - Plan Plan:: Assessment 02/19/2020 * 74-year-old male with pneumonia secondary to COVID-19 directly admitted to the hospital after presenting to the clinic with cough, shortness of breath, fatigue, and hypoxemia. * Risk factors include older age, male sex, and obesity. He has had a history of hypertension in the past, but currently does not take his blood pressure medications. 02/20/2020 * Patient continues with treatment for his pneumonia secondary to COVID-19. He is currently on 3 L nasal cannula and his oxygen saturations are in the low 90s. * Blood pressure well controlled off medication. 02/21/2020 * Patient did have worsening of his respiratory status overnight. He is now on high flow nasal cannula at 60 L/min. He has improved over the last several hours. * WBC of 6.3, platelets 170, D-dimer 0.28, estimated GFR greater than 60, C- reactive protein decreased to 10.3 from 14.4 * Initial procalcitonin was 0.1 02/22/2020 * Improvement in respiratory failure. Able to wean today down to high flow nasal cannula at 60 L/min at 60%. * Normal WBC, D-dimer 0.25, CRP decreased to 5.2, AST 67, ALT 89, estimated GFR greater than 60, albumin down to 2.4 * Continues on remdesivir, dexamethasone, Rocephin, and azithromycin * Improving C-reactive protein 02/23/2020 * Continue weaning of his high flow nasal cannula. Patient is generally improving. No labs drawn today. 02/24/2020 * Patient is relatively stable on high flow nasal cannula. He has had a slight increase to 50 to 55% FiO2. We will continue to monitor this. * Labs continue to improve. C-reactive protein is 2.8 with a normal white count of 7.8. Renal function shows a estimated GFR greater than 60. * It continues to be compliant with incentive spirometry and flutter valve. 02/25/2020 * Pulmonary status have mildly deteriorated in regards to work of breathing. He is essentially stable in regards to oxygen flow and percent oxygen. He has worsened over the last 24 hours with his incentive spirometry. He is also becoming more depressed. Saturations this morning were poor and we decided to move him to the ICU for closer observation. Patient had improvement in the setting in his respiratory status but worsening of his mental status. Patient became more depressed and upset. * Dexamethasone is likely making his mood worse. * Labs remain stable with white count 7.78, absolute neutrophils slightly elevated at 6.66, normal D-dimer at 0.44, decreasing C-reactive protein of 2.8, and normal GFR of greater than 60. Patient does have a continued decrease in his albumin to 2.3. 02/26/2020 * Patient's respiratory status is essentially stable from yesterday, but worse than admission. He is down to 50 L high flow O2 at 40% and his saturations are in the upper 80s to low 90s. He continues to use his incentive spirometer and he has been lying on his stomach more proning. This seems to have made a difference in his oxygenation. * Chest x-ray clearly worsened. This concerns me not just for worsening Covid pneumonia, but for healthcare associated pneumonia. * White blood cell count is increasing at 8.4, which is normal, absolute neutrophils are high at 7.52, and there is 1+ toxic granulation. * This appears to be worsening pneumonia and possibly bacterial component. He is having a better oxygenation and transfer to the ICU appears to have really affected him emotionally. Patient had a close friend that in our ICU at the beginning of the Covid pandemic and this is likely worrying him greatly. 02/27/2020 * No significant change in respiratory status. FiO2 has been bouncing around 50 to 65% and flow rate has been stable at 55 L/min. This is essentially expected at this time and course of the disease. * Procalcitonin came back at less than 0.01. I does not appear that he has a ba cterial HCAP. Antibiotics, Levaquin, Zosyn, and vancomycin, that were started yesterday will be stopped today. * CRP has slightly started to increase. It is up to 8.4. D-dimer stays negative at 0.26. * Patient has had a poor appetite and it is reflected in his albumin of 2.1. * Renal function stays good with an estimated GFR of greater than 60. * Completed remdesivir, 2 units convalescent plasma, 5 days Rocephin, 3 days of azithromycin. * On day 8 of 10 of dexamethasone. Plan * Transfer back to medical floor on telemetry and continuous pulse ox * Stop Levaquin, Zosyn, and vancomycin. * Dexamethasone day 8 for up to 10 days. * Aspirin 81 mg daily * Lovenox to 40 mg subcutaneously daily * Continue to try to wean oxygen as tolerated * Routine labs in the morning * FiO2 to keep SPO2 between 88 and 94%. Currently on high flow nasal cannula at 50 L nasal cannula at 40% FiO2. * Continue to titrate O2 as tolerated. * Repeat Covid labs in the morning * Encourage better nutrition intake. * CODE STATUS full code * Length of stay greater than 96 hours due to treatment of Covid pneumonia.
[2020-02-27] MEDS: Dexamethasone 4 MG Tab PO SCH (20:26)
[2020-02-28] MEDS: Albuterol 6.7 GM Inhaler INH PRN ×3 (07:48→20:57)
[2020-02-28] MEDS: Enoxaparin 40 MG/0.4 ML Syringe SUBCUT SCH ×2 (08:42→20:46)
[2020-02-28] MEDS: Aspirin 81 MG Tab.Chew PO SCH (08:43)
[2020-02-28] MEDS: Saccharomyces Boulardii (Probiotic) 250 MG Cap PO SCH ×2 (08:43→20:46)
[2020-02-28] MEDS: LORazepam 0.5 MG Tab PO PRN (12:19)
--- NOTE | 2020-02-28 15:31 | PCM.PN ---
- General Info Date of Service: 02/28/20 Functional Status: Reports: Pain Controlled, Tolerating Diet - Review of Systems General: Reports: Weakness HEENT: Reports: No Symptoms Pulmonary: Reports: Shortness of Breath Cardiovascular: Reports: No Symptoms Gastrointestinal: Reports: No Symptoms Genitourinary: Reports: No Symptoms Musculoskeletal: Reports: No Symptoms Skin: Reports: No Symptoms Neurological: Reports: No Symptoms Psychiatric: Reports: No Symptoms - Patient Data Vitals - Most Recent: Last Vital Signs Temp 37.2 C 02/28/20 08:41 Pulse 82 02/28/20 12:21 Resp 26 H 02/28/20 12:21 BP 117/77 02/28/20 12:21 Pulse Ox 93 L 02/28/20 15:15 Weight - Most Recent: 104.508 kg I&O - Last 24 Hours: Intake & Output 02/28/20 02/28/20 02/28/20 06:59 14:59 22:59 Intake Total 400 180 Balance 400 180 Lab Results Last 24 Hours: Laboratory Results - last 24 hr 02/28/20 02/28/20 02/28/20 Range/Units 04:53 04:53 04:53 WBC 8.49 (4.23-9.07) K/mm3 RBC 4.50 L (4.63-6.08) M/mm3 Hgb 13.8 (13.7-17.5) gm/dl Hct 42.3 (40.1-51.0) % MCV 94.0 H (79.0-92.2) fl MCH 30.7 (25.7-32.2) pg MCHC 32.6 (32.2-35.5) g/dl RDW Std Deviation 44.0 H (35.1-43.9) fL Plt Count 271 (163-337) K/mm3 MPV 10.2 (9.4-12.3) fl Neut % (Auto) 88.7 H (34.0-67.9) % Lymph % (Auto) 5.8 L (21.8-53.1) % Carson % (Auto) 4.4 L (5.3-12.2) % Eos % (Auto) 0.4 L (0.8-7.0) Baso % (Auto) 0.1 (0.1-1.2) % Neut # (Auto) 7.54 H (1.78-5.38) K/mm3 Lymph # (Auto) 0.49 L (1.32-3.57) K/mm3 Carson # (Auto) 0.37 (0.30-0.82) K/mm3 Eos # (Auto) 0.03 L (0.04-0.54) K/mm3 Baso # (Auto) 0.01 (0.01-0.08) K/mm3 Manual Slide Review Abnormal smear D-Dimer, Quantitative 0.32 (0.19-0.50) mg/L Sodium 138 (136-145) mEq/L Potassium 4.6 (3.5-5.1) mEq/L Chloride 104 (98-107) mEq/L Carbon Dioxide 25 (21-32) mEq/L Anion Gap 13.6 (5-15) BUN 23 H (7-18) mg/dL Creatinine 1.0 (0.7-1.3) mg/dL Est Cr Clr Drug Dosing 62.70 mL/min Estimated GFR (MDRD) > 60 (>60) mL/min BUN/Creatinine Ratio 23.0 H (14-18) Glucose 155 H (83-115) mg/dL Calcium 8.8 (8.5-10.1) mg/dL Phosphorus 3.4 (2.6-4.7) mg/dL Magnesium 1.9 (1.8-2.4) mg/dl Total Bilirubin 0.6 (0.2-1.0) mg/dL AST 24 (15-37) U/L ALT 52 (16-63) U/L Alkaline Phosphatase 78 (46-116) U/L C-Reactive Protein 5.4 H* (<1.0) mg/dL Total Protein 6.1 L (6.4-8.2) g/dl Albumin 2.3 L (3.4-5.0) g/dl Globulin 3.8 gm/dL Albumin/Globulin Ratio 0.6 L (1-2) Med Orders - Current: Current Medications Acetaminophen (Tylenol) 650 mg PO Q4H PRN PRN Reason: Pain (Mild 1-3)/fever Last Admin: 02/19/20 22:05 Dose: 650 mg Documented by: Al Hydroxide/Mg Hydroxide (Mag-Al Plus) 30 ml PO Q4H PRN PRN Reason: heart burn Last Admin: 02/23/20 21:04 Dose: 30 ml Documented by: Albuterol (Proventil Hfa) 0 gm INH Q4H PRN PRN Reason: Shortness of Breath Last Admin: 02/28/20 13:28 Dose: 2 puff Documented by: Aspirin (Aspirin) 81 mg PO DAILY [facility] Last Admin: 02/28/20 08:43 Dose: 81 mg Documented by: Dexamethasone (Dexamethasone) 6 mg PO Q24H [facility] Stop: 02/28/20 21:01 Last Admin: 02/27/20 20:26 Dose: 6 mg Documented by: Enoxaparin Sodium (Lovenox) 40 mg SUBCUT Q12H [facility] Last Admin: 02/28/20 08:42 Dose: 40 mg Documented by: Lorazepam (Ativan) 0.5 mg PO Q4H PRN PRN Reason: Anxiety Last Admin: 02/28/20 12:19 Dose: 0.5 mg Documented by: Ondansetron HCl (Zofran) 4 mg IV Q4H PRN PRN Reason: Nausea/Vomiting Saccharomyces Boulardii (Florastor) 500 mg PO BID [facility] Last Admin: 02/28/20 08:43 Dose: 500 mg Documented by: Sodium Chloride (Saline Flush) 10 ml FLUSH ASDIRECTED PRN PRN Reason: Keep Vein Open Discontinued Medications Aspirin (Aspirin) 81 mg PO BEDTIME [facility] Last Admin: 02/20/20 20:20 Dose: 81 mg Documented by: Aspirin (Aspirin) 81 mg PO BEDTIME [facility] Remdesivir 200 mg/ Sodium (Chloride) 250 mls @ 250 mls/hr IV ONETIME ONE Stop: 02/19/20 21:59 Last Admin: 02/19/20 22:02 Dose: 250 mls/hr Documented by: Remdesivir 100 mg/ Sodium (Chloride) 100 mls @ 100 mls/hr IV Q24H [facility] Stop: 02/23/20 21:59 Last Admin: 02/23/20 21:04 Dose: 100 mls/hr Documented by: Sodium Chloride (Normal Saline) 100 mls @ 25 mls/hr IV ASDIRECTED [facility] Last Admin: 02/19/20 23:46 Dose: 25 mls/hr Documented by: Azithromycin 500 mg/ Sodium (Chloride) 250 mls @ 250 mls/hr IV Q24H [facility] Stop: 02/22/20 22:59 Last Admin: 02/22/20 22:20 Dose: 250 mls/hr Documented by: Ceftriaxone Sodium 2 gm/ (Sodium Chloride) 100 mls @ 200 mls/hr IV Q24H [facility] Stop: 02/24/20 22:29 Last Admin: 02/24/20 21:26 Dose: 200 mls/hr Documented by: Piperacillin Sod/Tazobactam (Sod 4.5 gm/ Sodium Chloride) 100 mls @ 200 mls/hr IV ONETIME ONE Stop: 02/26/20 10:29 Last Admin: 02/26/20 09:58 Dose: 200 mls/hr Documented by: Piperacillin Sod/Tazobactam (Sod 4.5 gm/ Sodium Chloride) 100 mls @ 25 mls/hr IV Q8H [facility] Last Admin: 02/27/20 02:59 Dose: 25 mls/hr Documented by: Vancomycin HCl 1.75 gm/ Sodium (Chloride) 500 mls @ 250 mls/hr IV ONETIME ONE Stop: 02/26/20 12:29 Last Admin: 02/26/20 11:48 Dose: 250 mls/hr Documented by: Vancomycin HCl 1 gm/Vancomycin HCl 250 mg/ Sodium Chloride 250 mls @ 166.667 mls/hr IV Q12H [facility] Last Admin: 02/26/20 22:51 Dose: 166.667 mls/hr Documented by: Levofloxacin (Levaquin) 750 mg PO Q24H [facility] Last Admin: 02/26/20 09:57 Dose: 750 mg Documented by: Magnesium Hydroxide (Milk Of Magnesia) 30 ml PO ONETIME ONE Stop: 02/27/20 09:01 Last Admin: 02/27/20 08:38 Dose: 30 ml Documented by: Vancomycin HCl (Pharmacy To Dose - Vancomycin) 1 dose .XX ASDIRECTED PRN PRN Reason: RX TO DOSE VANCO - Exam Quality Assessment: Supplemental Oxygen, DVT Prophylaxis General: Alert, Oriented, Cooperative, No Acute Distress HEENT: Pupils Equal, Pupils Reactive, EOMI Neck: Trachea Midline Lungs: Normal Respiratory Effort, Decreased Breath Sounds Cardiovascular: Regular Rate, Regular Rhythm GI/Abdominal Exam: Normal Bowel Sounds, Soft, Non-Tender, No Organomegaly, No Distention (Male) Exam: Deferred Back Exam: Normal Inspection Extremities: Normal Inspection, Normal Capillary Refill Skin: Warm, Dry Neurological: No New Focal Deficit, Normal Speech Psy/Mental Status: Alert, Normal Affect Sepsis Event Note - Evaluation Sepsis Screening Result: No Definite Risk - Focused Exam Vital Signs: Vital Signs Temp Pulse Resp BP Pulse Ox Pulse Ox 02/28/20 15:15 93 L 02/28/20 13:29 93 L 02/28/20 12:21 82 26 H 117/77 91 L 02/28/20 09:43 92 L 02/28/20 09:12 93 L 02/28/20 08:41 37.2 C 69 22 H 117/77 91 L 02/28/20 07:48 93 L 02/28/20 05:07 36.7 C 66 20 107/71 90 L - Problem List Review Problem List Initiated/Reviewed/Updated: Yes - Plan Plan:: Assessment 02/19/2020 * 74-year-old male with pneumonia secondary to COVID-19 directly admitted to the hospital after presenting to the clinic with cough, shortness of breath, fatigue, and hypoxemia. * Risk factors include older age, male sex, and obesity. He has had a history of hypertension in the past, but currently does not take his blood pressure medications. 02/20/2020 * Patient continues with treatment for his pneumonia secondary to COVID-19. He is currently on 3 L nasal cannula and his oxygen saturations are in the low 90s. * Blood pressure well controlled off medication. 02/21/2020 * Patient did have worsening of his respiratory status overnight. He is now on high flow nasal cannula at 60 L/min. He has improved over the last several hours. * WBC of 6.3, platelets 170, D-dimer 0.28, estimated GFR greater than 60, C- reactive protein decreased to 10.3 from 14.4 * Initial procalcitonin was 0.1 02/22/2020 * Improvement in respiratory failure. Able to wean today down to high flow nasal cannula at 60 L/min at 60%. * Normal WBC, D-dimer 0.25, CRP decreased to 5.2, AST 67, ALT 89, estimated GFR greater than 60, albumin down to 2.4 * Continues on remdesivir, dexamethasone, Rocephin, and azithromycin * Improving C-reactive protein 02/23/2020 * Continue weaning of his high flow nasal cannula. Patient is generally improving. No labs drawn today. 02/24/2020 * Patient is relatively stable on high flow nasal cannula. He has had a slight increase to 50 to 55% FiO2. We will continue to monitor this. * Labs continue to improve. C-reactive protein is 2.8 with a normal white count of 7.8. Renal function shows a estimated GFR greater than 60. * It continues to be compliant with incentive spirometry and flutter valve. 02/25/2020 * Pulmonary status have mildly deteriorated in regards to work of breathing. He is essentially stable in regards to oxygen flow and percent oxygen. He has worsened over the last 24 hours with his incentive spirometry. He is also becoming more depressed. Saturations this morning were poor and we decided to move him to the ICU for closer observation. Patient had improvement in the setting in his respiratory status but worsening of his mental status. Patient became more depressed and upset. * Dexamethasone is likely making his mood worse. * Labs remain stable with white count 7.78, absolute neutrophils slightly elevated at 6.66, normal D-dimer at 0.44, decreasing C-reactive protein of 2.8, and normal GFR of greater than 60. Patient does have a continued decrease in his albumin to 2.3. 02/26/2020 * Patient's respiratory status is essentially stable from yesterday, but worse than admission. He is down to 50 L high flow O2 at 40% and his saturations are in the upper 80s to low 90s. He continues to use his incentive spirometer and he has been lying on his stomach more proning. This seems to have made a difference in his oxygenation. * Chest x-ray clearly worsened. This concerns me not just for worsening Covid pneumonia, but for healthcare associated pneumonia. * White blood cell count is increasing at 8.4, which is normal, absolute neutrophils are high at 7.52, and there is 1+ toxic granulation. * This appears to be worsening pneumonia and possibly bacterial component. He is having a better oxygenation and transfer to the ICU appears to have really affected him emotionally. Patient had a close friend that in our ICU at the beginning of the Covid pandemic and this is likely worrying him greatly. 02/27/2020 * No significant change in respiratory status. FiO2 has been bouncing around 50 to 65% and flow rate has been stable at 55 L/min. This is essentially expected at this time and course of the disease. * Procalcitonin came back at less than 0.01. I does not appear that he has a bacterial HCAP. Antibiotics, Levaquin, Zosyn, and vancomycin, that were started yesterday will be stopped today. * CRP has slightly started to increase. It is up to 8.4. D-dimer stays negative at 0.26. * Patient has had a poor appetite and it is reflected in his albumin of 2.1. * Renal function stays good with an estimated GFR of greater than 60. * Completed remdesivir, 2 units convalescent plasma, 5 days Rocephin, 3 days of azithromycin. * On day 8 of 10 of dexamethasone. * Labile affect, query steroid effect Plan * Stop Levaquin, Zosyn, and vancomycin. * Dexamethasone day 8 for up to 10 days. * Aspirin 81 mg daily * Lovenox to 40 mg subcutaneously daily * Continue to try to wean oxygen as tolerated * Routine labs in the morning * FiO2 to keep SPO2 between 88 and 94%. Currently on high flow nasal cannula at 50 L nasal cannula at 40% FiO2. * Continue to titrate O2 as tolerated. * Repeat Covid labs in the morning * Encourage better nutrition intake. * CODE STATUS full code * Length of stay greater than 96 hours due to treatment of Covid pneumonia.
[2020-02-28] MEDS: Aluminum Hydroxide/Magnesium Hydroxide/Simethicone Susp 30 ML Cup PO PRN (16:47)
[2020-02-28] MEDS: Dexamethasone 4 MG Tab PO SCH (20:47)
[2020-02-29] MEDS: Albuterol 6.7 GM Inhaler INH PRN ×4 (07:50→20:49)
[2020-02-29] MEDS: Aspirin 81 MG Tab.Chew PO SCH (09:04)
[2020-02-29] MEDS: Saccharomyces Boulardii (Probiotic) 250 MG Cap PO SCH ×2 (09:04→21:48)
[2020-02-29] MEDS: Enoxaparin 40 MG/0.4 ML Syringe SUBCUT SCH ×2 (09:04→21:48)
[2020-03-01] MEDS: Enoxaparin 40 MG/0.4 ML Syringe SUBCUT SCH ×2 (08:17→21:05)
[2020-03-01] MEDS: Aspirin 81 MG Tab.Chew PO SCH (08:17)
[2020-03-01] MEDS: Saccharomyces Boulardii (Probiotic) 250 MG Cap PO SCH ×2 (08:17→21:05)
[2020-03-01] MEDS: Albuterol 6.7 GM Inhaler INH PRN ×3 (08:40→15:19)
--- NOTE | 2020-03-01 11:16 | CR ---
PROCEDURE INFORMATION: Exam: XR Chest, 1 View Exam date and time: 03/01/2020 9:47 AM Age: 75 years old Clinical indication: Condition or disease; Other: Pneumonia; Additional info: Covid TECHNIQUE: Imaging protocol: XR of the chest Views: 1 view. COMPARISON: CR Chest 1V Frontal 02/27/2020 8:36 AM FINDINGS: Lungs: Diffuse patchy airspace opacities noted throughout the lungs bilaterally. Pleural space: Unremarkable. No pleural effusion. No pneumothorax. Heart/Mediastinum: Unremarkable. No cardiomegaly. Bones/joints: Unremarkable. IMPRESSION: Diffuse patchy airspace opacities noted throughout the lungs bilaterally. Findings consistent with edema, viral or atypical pneumonia. Other etiologies are not excluded. Thank you for allowing us to participate in the care of your patient. Dictated and Authenticated by: Puneet Herzog DO 03/01/2020 11:22 AM Central Time ([place] & [place]) [place]
--- NOTE | 2020-03-01 12:00 | PCM.PN ---
- General Info Date of Service: 02/29/20 Subjective Update: Patient expressing less frustration, overall is felling better. Steroid has been stopped per protocol. HFNC, adjusted as tolerated. Functional Status: Reports: Tolerating Diet, Ambulating - Review of Systems General: Reports: Weakness HEENT: Reports: No Symptoms Pulmonary: Reports: No Symptoms Cardiovascular: Reports: No Symptoms Gastrointestinal: Reports: No Symptoms Genitourinary: Reports: No Symptoms Musculoskeletal: Reports: No Symptoms Skin: Reports: No Symptoms Neurological: Reports: No Symptoms Psychiatric: Reports: No Symptoms - Patient Data Vitals - Most Recent: Last Vital Signs Temp 37.0 C 03/01/20 08:14 Pulse 73 03/01/20 08:14 Resp 20 03/01/20 08:14 BP 101/61 03/01/20 08:14 Pulse Ox 91 L 03/01/20 09:54 Weight - Most Recent: 106.231 kg I&O - Last 24 Hours: Intake & Output 02/29/20 03/01/20 03/01/20 22:59 06:59 14:59 Intake Total 1170 300 Balance 1170 300 Lab Results Last 24 Hours: Laboratory Results - last 24 hr 02/29/20 02/29/20 02/29/20 Range/Units 15:11 15:11 15:11 WBC 7.62 (4.23-9.07) K/mm3 RBC 4.29 L (4.63-6.08) M/mm3 Hgb 13.1 L (13.7-17.5) gm/dl Hct 40.4 (40.1-51.0) % MCV 94.2 H (79.0-92.2) fl MCH 30.5 (25.7-32.2) pg MCHC 32.4 (32.2-35.5) g/dl RDW Std Deviation 44.3 H (35.1-43.9) fL Plt Count 247 (163-337) K/mm3 MPV 9.6 (9.4-12.3) fl D-Dimer, Quantitative 0.33 (0.19-0.50) mg/L Sodium 139 (136-145) mEq/L Potassium 3.7 (3.5-5.1) mEq/L Chloride 103 (98-107) mEq/L Carbon Dioxide 25 (21-32) mEq/L Anion Gap 14.7 (5-15) BUN 31 H (7-18) mg/dL Creatinine 1.0 (0.7-1.3) mg/dL Est Cr Clr Drug Dosing 62.70 mL/min Estimated GFR (MDRD) > 60 (>60) mL/min BUN/Creatinine Ratio 31.0 H (14-18) Glucose 157 H (83-115) mg/dL Calcium 8.9 (8.5-10.1) mg/dL 03/01/20 03/01/20 03/01/20 Range/Units 05:07 05:07 05:07 WBC 7.57 (4.23-9.07) K/mm3 RBC 4.27 L (4.63-6.08) M/mm3 Hgb 13.1 L (13.7-17.5) gm/dl Hct 40.6 (40.1-51.0) % MCV 95.1 H (79.0-92.2) fl MCH 30.7 (25.7-32.2) pg MCHC 32.3 (32.2-35.5) g/dl RDW Std Deviation 44.5 H (35.1-43.9) fL Plt Count 226 (163-337) K/mm3 MPV 10.1 (9.4-12.3) fl D-Dimer, Quantitative 0.58 H (0.19-0.50) mg/L Sodium 140 (136-145) mEq/L Potassium 3.8 (3.5-5.1) mEq/L Chloride 105 (98-107) mEq/L Carbon Dioxide 26 (21-32) mEq/L Anion Gap 12.8 (5-15) BUN 27 H (7-18) mg/dL Creatinine 0.9 (0.7-1.3) mg/dL Est Cr Clr Drug Dosing 69.67 mL/min Estimated GFR (MDRD) > 60 (>60) mL/min BUN/Creatinine Ratio 30.0 H (14-18) Glucose 79 L (83-115) mg/dL Calcium 8.0 L (8.5-10.1) mg/dL Med Orders - Current: Current Medications Acetaminophen (Tylenol) 650 mg PO Q4H PRN PRN Reason: Pain (Mild 1-3)/fever Last Admin: 10/26/20 22:05 Dose: 650 mg Documented by: Al Hydroxide/Mg Hydroxide (Mag-Al Plus) 30 ml PO Q4H PRN PRN Reason: heart burn Last Admin: 02/28/20 16:47 Dose: 30 ml Documented by: Albuterol (Proventil Hfa) 0 gm INH Q4H PRN PRN Reason: Shortness of Breath Last Admin: 03/01/20 08:40 Dose: 2 puff Documented by: Aspirin (Aspirin) 81 mg PO DAILY [facility] Last Admin: 03/01/20 08:17 Dose: 81 mg Documented by: Enoxaparin Sodium (Lovenox) 40 mg SUBCUT Q12H [facility] Last Admin: 03/01/20 08:17 Dose: 40 mg Documented by: Lorazepam (Ativan) 0.5 mg PO Q4H PRN PRN Reason: Anxiety Last Admin: 02/28/20 12:19 Dose: 0.5 mg Documented by: Ondansetron HCl (Zofran) 4 mg IV Q4H PRN PRN Reason: Nausea/Vomiting Saccharomyces Boulardii (Florastor) 500 mg PO BID [facility] Last Admin: 03/01/20 08:17 Dose: 500 mg Documented by: Sodium Chloride (Saline Flush) 10 ml FLUSH ASDIRECTED PRN PRN Reason: Keep Vein Open Discontinued Medications Aspirin (Aspirin) 81 mg PO BEDTIME [facility] Last Admin: 02/20/20 20:20 Dose: 81 mg Documented by: Aspirin (Aspirin) 81 mg PO BEDTIME [facility] Dexamethasone (Dexamethasone) 6 mg PO Q24H [facility] Stop: 02/28/20 21:01 Last Admin: 02/28/20 20:47 Dose: 6 mg Documented by: Remdesivir 200 mg/ Sodium (Chloride) 250 mls @ 250 mls/hr IV ONETIME ONE Stop: 02/19/20 21:59 Last Admin: 02/19/20 22:02 Dose: 250 mls/hr Documented by: Remdesivir 100 mg/ Sodium (Chloride) 100 mls @ 100 mls/hr IV Q24H [facility] Stop: 02/23/20 21:59 Last Admin: 02/23/20 21:04 Dose: 100 mls/hr Documented by: Sodium Chloride (Normal Saline) 100 mls @ 25 mls/hr IV ASDIRECTED [facility] Last Admin: 02/19/20 23:46 Dose: 25 mls/hr Documented by: Azithromycin 500 mg/ Sodium (Chloride) 250 mls @ 250 mls/hr IV Q24H [facility] Stop: 02/22/20 22:59 Last Admin: 02/22/20 22:20 Dose: 250 mls/hr Documented by: Ceftriaxone Sodium 2 gm/ (Sodium Chloride) 100 mls @ 200 mls/hr IV Q24H [facility] Stop: 02/24/20 22:29 Last Admin: 02/24/20 21:26 Dose: 200 mls/hr Documented by: Piperacillin Sod/Tazobactam (Sod 4.5 gm/ Sodium Chloride) 100 mls @ 200 mls/hr IV ONETIME ONE Stop: 02/26/20 10:29 Last Admin: 02/26/20 09:58 Dose: 200 mls/hr Documented by: Piperacillin Sod/Tazobactam (Sod 4.5 gm/ Sodium Chloride) 100 mls @ 25 mls/hr IV Q8H [facility] Last Admin: 02/27/20 02:59 Dose: 25 mls/hr Documented by: Vancomycin HCl 1.75 gm/ Sodium (Chloride) 500 mls @ 250 mls/hr IV ONETIME ONE Stop: 02/26/20 12:29 Last Admin: 02/26/20 11:48 Dose: 250 mls/hr Documented by: Vancomycin HCl 1 gm/Vancomycin HCl 250 mg/ Sodium Chloride 250 mls @ 166.667 mls/hr IV Q12H [facility] Last Admin: 02/26/20 22:51 Dose: 166.667 mls/hr Documented by: Levofloxacin (Levaquin) 750 mg PO Q24H [facility] Last Admin: 02/26/20 09:57 Dose: 750 mg Documented by: Magnesium Hydroxide (Milk Of Magnesia) 30 ml PO ONETIME ONE Stop: 02/27/20 09:01 Last Admin: 02/27/20 08:38 Dose: 30 ml Documented by: Vancomycin HCl (Pharmacy To Dose - Vancomycin) 1 dose .XX ASDIRECTED PRN PRN Reason: RX TO DOSE VANCO - Exam Quality Assessment: Supplemental Oxygen General: Alert, Oriented, Cooperative, No Acute Distress HEENT: Pupils Equal, Pupils Reactive, EOMI Neck: Trachea Midline, No JVD Lungs: Normal Respiratory Effort, Decreased Breath Sounds Cardiovascular: Regular Rate, Regular Rhythm GI/Abdominal Exam: Normal Bowel Sounds, Soft, Non-Tender, No Distention (Male) Exam: Deferred Back Exam: Normal Inspection Extremities: Normal Inspection, Normal Capillary Refill Skin: Warm, Dry, Intact Neurological: No New Focal Deficit, Normal Speech Psy/Mental Status: Alert Sepsis Event Note - Evaluation Sepsis Screening Result: No Definite Risk - Focused Exam Vital Signs: Vital Signs Temp Pulse Resp BP Pulse Ox Pulse Ox 03/01/20 09:54 91 L 03/01/20 09:25 95 03/01/20 08:41 95 03/01/20 08:14 37.0 C 73 20 101/61 89 L 03/01/20 05:47 89 L 03/01/20 04:29 36.8 C 65 18 99/76 88 L 03/01/20 00:37 89 L - Problem List Review Problem List Initiated/Reviewed/Updated: Yes - My Orders Last 24 Hours: My Active Orders 03/01/20 10:23 Communication Order [RC] ASDIRECTED 03/02/20 05:11 BASIC METABOLIC PANEL,BMP [CHEM] DAILY CBC W/O DIFF,HEMOGRAM [HEME] DAILY DD [D-DIMER QUANTITATIVE] [COAG] DAILY 03/03/20 05:11 BASIC METABOLIC PANEL,BMP [CHEM] DAILY CBC W/O DIFF,HEMOGRAM [HEME] DAILY DD [D-DIMER QUANTITATIVE] [COAG] DAILY 03/04/20 05:11 BASIC METABOLIC PANEL,BMP [CHEM] DAILY CBC W/O DIFF,HEMOGRAM [HEME] DAILY DD [D-DIMER QUANTITATIVE] [COAG] DAILY - Plan Plan:: Assessment 02/19/2020 * 74-year-old male with pneumonia secondary to COVID-19 directly admitted to the hospital after presenting to the clinic with cough, shortness of breath, fatigue, and hypoxemia. * Risk factors include older age, male sex, and obesity. He has had a history of hypertension in the past, but currently does not take his blood pressure medications. 02/20/2020 * Patient continues with treatment for his pneumonia secondary to COVID-19. He is currently on 3 L nasal cannula and his oxygen saturations are in the low 90s. * Blood pressure well controlled off medication. 02/21/2020 * Patient did have worsening of his respiratory status overnight. He is now on high flow nasal cannula at 60 L/min. He has improved over the last several hours. * WBC of 6.3, platelets 170, D-dimer 0.28, estimated GFR greater than 60, C- reactive protein decreased to 10.3 from 14.4 * Initial procalcitonin was 0.1 02/22/2020 * Improvement in respiratory failure. Able to wean today down to high flow nasal cannula at 60 L/min at 60%. * Normal WBC, D-dimer 0.25, CRP decreased to 5.2, AST 67, ALT 89, estimated GFR greater than 60, albumin down to 2.4 * Continues on remdesivir, dexamethasone, Rocephin, and azithromycin * Improving C-reactive protein 02/23/2020 * Continue weaning of his high flow nasal cannula. Patient is generally improving. No labs drawn today. 02/24/2020 * Patient is relatively stable on high flow nasal cannula. He has had a slight increase to 50 to 55% FiO2. We will continue to monitor this. * Labs continue to improve. C-reactive protein is 2.8 with a normal white count of 7.8. Renal function shows a estimated GFR greater than 60. * It continues to be compliant with incentive spirometry and flutter valve. 02/25/2020 * Pulmonary status have mildly deteriorated in regards to work of breathing. He is essentially stable in regards to oxygen flow and percent oxygen. He has worsened over the last 24 hours with his incentive spirometry. He is also becoming more depressed. Saturations this morning were poor and we decided to move him to the ICU for closer observation. Patient had improvement in the setting in his respiratory status but worsening of his mental status. Patient became more depressed and upset. * Dexamethasone is likely making his mood worse. * Labs remain stable with white count 7.78, absolute neutrophils slightly elevated at 6.66, normal D-dimer at 0.44, decreasing C-reactive protein of 2.8, and normal GFR of greater than 60. Patient does have a continued decrease in his albumin to 2.3. 02/26/2020 * Patient's respiratory status is essentially stable from yesterday, but worse than admission. He is down to 50 L high flow O2 at 40% and his saturations are in the upper 80s to low 90s. He continues to use his incentive spirometer and he has been lying on his stomach more proning. This seems to have made a difference in his oxygenation. * Chest x-ray clearly worsened. This concerns me not just for worsening Covid pneumonia, but for healthcare associated pneumonia. * White blood cell count is increasing at 8.4, which is normal, absolute neutrophils are high at 7.52, and there is 1+ toxic granulation. * This appears to be worsening pneumonia and possibly bacterial component. He is having a better oxygenation and transfer to the ICU appears to have really affected him emotionally. Patient had a close friend that in our ICU at the beginning of the Covid pandemic and this is likely worrying him greatly. 02/29/2020 * HFNC, 50/55 * Atypical/Viral, Covid-19 PNA; No HCAP: Levaquin, Zosyn, and vancomycin--stopped 02/28/2020. * CRP has slightly started to increase. It is up to 8.4. D-dimer stays negative at 0.26. * Appetite has improved * GFR >/= 60. * Completed remdesivir, 2 units convalescent plasma, 5 days Rocephin, 3 days of azithromycin. * Competed dexamethasone. * Labile affect-improved Plan: * Aspirin 81 mg daily * Lovenox to 40 mg subcutaneously daily * Continue to try to wean oxygen as tolerated * Routine labs in the morning * FiO2 to keep SPO2 between 88 and 94%. Currently on high flow nasal cannula at 50 L nasal cannula at 40% FiO2. * Continue to titrate O2 as tolerated. * Repeat Covid labs in the morning * Encourage better nutrition intake. * CODE STATUS full code * Length of stay greater than 96 hours due to treatment of Covid pneumonia.
--- NOTE | 2020-03-01 12:02 | PCM.PN ---
- General Info Date of Service: 03/01/20 Subjective Update: Patient has no complaints; O2 therapy titrate off high flow as tolerated. Functional Status: Reports: Tolerating Diet, Ambulating, Urinating - Review of Systems General: Reports: Weakness HEENT: Reports: No Symptoms Pulmonary: Reports: No Symptoms Cardiovascular: Reports: No Symptoms Gastrointestinal: Reports: No Symptoms Genitourinary: Reports: No Symptoms Musculoskeletal: Reports: No Symptoms Skin: Reports: No Symptoms Neurological: Reports: No Symptoms Psychiatric: Reports: No Symptoms - Patient Data Vitals - Most Recent: Last Vital Signs Temp 37.0 C 03/01/20 08:14 Pulse 73 03/01/20 08:14 Resp 20 03/01/20 08:14 BP 101/61 03/01/20 08:14 Pulse Ox 91 L 03/01/20 09:54 Weight - Most Recent: 106.231 kg I&O - Last 24 Hours: Intake & Output 02/29/20 03/01/20 03/01/20 22:59 06:59 14:59 Intake Total 1170 300 Balance 1170 300 Lab Results Last 24 Hours: Laboratory Results - last 24 hr 02/29/20 02/29/20 02/29/20 Range/Units 15:11 15:11 15:11 WBC 7.62 (4.23-9.07) K/mm3 RBC 4.29 L (4.63-6.08) M/mm3 Hgb 13.1 L (13.7-17.5) gm/dl Hct 40.4 (40.1-51.0) % MCV 94.2 H (79.0-92.2) fl MCH 30.5 (25.7-32.2) pg MCHC 32.4 (32.2-35.5) g/dl RDW Std Deviation 44.3 H (35.1-43.9) fL Plt Count 247 (163-337) K/mm3 MPV 9.6 (9.4-12.3) fl D-Dimer, Quantitative 0.33 (0.19-0.50) mg/L Sodium 139 (136-145) mEq/L Potassium 3.7 (3.5-5.1) mEq/L Chloride 103 (98-107) mEq/L Carbon Dioxide 25 (21-32) mEq/L Anion Gap 14.7 (5-15) BUN 31 H (7-18) mg/dL Creatinine 1.0 (0.7-1.3) mg/dL Est Cr Clr Drug Dosing 62.70 mL/min Estimated GFR (MDRD) > 60 (>60) mL/min BUN/Creatinine Ratio 31.0 H (14-18) Glucose 157 H (83-115) mg/dL Calcium 8.9 (8.5-10.1) mg/dL 03/01/20 03/01/20 03/01/20 Range/Units 05:07 05:07 05:07 WBC 7.57 (4.23-9.07) K/mm3 RBC 4.27 L (4.63-6.08) M/mm3 Hgb 13.1 L (13.7-17.5) gm/dl Hct 40.6 (40.1-51.0) % MCV 95.1 H (79.0-92.2) fl MCH 30.7 (25.7-32.2) pg MCHC 32.3 (32.2-35.5) g/dl RDW Std Deviation 44.5 H (35.1-43.9) fL Plt Count 226 (163-337) K/mm3 MPV 10.1 (9.4-12.3) fl D-Dimer, Quantitative 0.58 H (0.19-0.50) mg/L Sodium 140 (136-145) mEq/L Potassium 3.8 (3.5-5.1) mEq/L Chloride 105 (98-107) mEq/L Carbon Dioxide 26 (21-32) mEq/L Anion Gap 12.8 (5-15) BUN 27 H (7-18) mg/dL Creatinine 0.9 (0.7-1.3) mg/dL Est Cr Clr Drug Dosing 69.67 mL/min Estimated GFR (MDRD) > 60 (>60) mL/min BUN/Creatinine Ratio 30.0 H (14-18) Glucose 79 L (83-115) mg/dL Calcium 8.0 L (8.5-10.1) mg/dL Med Orders - Current: Current Medications Acetaminophen (Tylenol) 650 mg PO Q4H PRN PRN Reason: Pain (Mild 1-3)/fever Last Admin: 02/19/20 22:05 Dose: 650 mg Documented by: Al Hydroxide/Mg Hydroxide (Mag-Al Plus) 30 ml PO Q4H PRN PRN Reason: heart burn Last Admin: 02/28/20 16:47 Dose: 30 ml Documented by: Albuterol (Proventil Hfa) 0 gm INH Q4H PRN PRN Reason: Shortness of Breath Last Admin: 03/01/20 08:40 Dose: 2 puff Documented by: Aspirin (Aspirin) 81 mg PO DAILY [facility] Last Admin: 03/01/20 08:17 Dose: 81 mg Documented by: Enoxaparin Sodium (Lovenox) 40 mg SUBCUT Q12H [facility] Last Admin: 03/01/20 08:17 Dose: 40 mg Documented by: Lorazepam (Ativan) 0.5 mg PO Q4H PRN PRN Reason: Anxiety Last Admin: 02/28/20 12:19 Dose: 0.5 mg Documented by: Ondansetron HCl (Zofran) 4 mg IV Q4H PRN PRN Reason: Nausea/Vomiting Saccharomyces Boulardii (Florastor) 500 mg PO BID [facility] Last Admin: 03/01/20 08:17 Dose: 500 mg Documented by: Sodium Chloride (Saline Flush) 10 ml FLUSH ASDIRECTED PRN PRN Reason: Keep Vein Open Discontinued Medications Aspirin (Aspirin) 81 mg PO BEDTIME [facility] Last Admin: 02/20/20 20:20 Dose: 81 mg Documented by: Aspirin (Aspirin) 81 mg PO BEDTIME [facility] Dexamethasone (Dexamethasone) 6 mg PO Q24H [facility] Stop: 02/28/20 21:01 Last Admin: 02/28/20 20:47 Dose: 6 mg Documented by: Remdesivir 200 mg/ Sodium (Chloride) 250 mls @ 250 mls/hr IV ONETIME ONE Stop: 02/19/20 21:59 Last Admin: 02/19/20 22:02 Dose: 250 mls/hr Documented by: Remdesivir 100 mg/ Sodium (Chloride) 100 mls @ 100 mls/hr IV Q24H [facility] Stop: 02/23/20 21:59 Last Admin: 02/23/20 21:04 Dose: 100 mls/hr Documented by: Sodium Chloride (Normal Saline) 100 mls @ 25 mls/hr IV ASDIRECTED [facility] Last Admin: 02/19/20 23:46 Dose: 25 mls/hr Documented by: Azithromycin 500 mg/ Sodium (Chloride) 250 mls @ 250 mls/hr IV Q24H [facility] Stop: 02/22/20 22:59 Last Admin: 02/22/20 22:20 Dose: 250 mls/hr Documented by: Ceftriaxone Sodium 2 gm/ (Sodium Chloride) 100 mls @ 200 mls/hr IV Q24H [facility] Stop: 02/24/20 22:29 Last Admin: 02/24/20 21:26 Dose: 200 mls/hr Documented by: Piperacillin Sod/Tazobactam (Sod 4.5 gm/ Sodium Chloride) 100 mls @ 200 mls/hr IV ONETIME ONE Stop: 02/26/20 10:29 Last Admin: 02/26/20 09:58 Dose: 200 mls/hr Documented by: Piperacillin Sod/Tazobactam (Sod 4.5 gm/ Sodium Chloride) 100 mls @ 25 mls/hr IV Q8H [facility] Last Admin: 02/27/20 02:59 Dose: 25 mls/hr Documented by: Vancomycin HCl 1.75 gm/ Sodium (Chloride) 500 mls @ 250 mls/hr IV ONETIME ONE Stop: 02/26/20 12:29 Last Admin: 02/26/20 11:48 Dose: 250 mls/hr Documented by: Vancomycin HCl 1 gm/Vancomycin HCl 250 mg/ Sodium Chloride 250 mls @ 166.667 mls/hr IV Q12H [facility] Last Admin: 02/26/20 22:51 Dose: 166.667 mls/hr Documented by: Levofloxacin (Levaquin) 750 mg PO Q24H [facility] Last Admin: 02/26/20 09:57 Dose: 750 mg Documented by: Magnesium Hydroxide (Milk Of Magnesia) 30 ml PO ONETIME ONE Stop: 02/27/20 09:01 Last Admin: 02/27/20 08:38 Dose: 30 ml Documented by: Vancomycin HCl (Pharmacy To Dose - Vancomycin) 1 dose .XX ASDIRECTED PRN PRN Reason: RX TO DOSE VANCO - Exam Quality Assessment: Supplemental Oxygen General: Alert, Oriented, Cooperative, No Acute Distress HEENT: Pupils Equal, Pupils Reactive, EOMI Neck: Trachea Midline, No JVD Lungs: Normal Respiratory Effort, Rales Cardiovascular: Regular Rate, Regular Rhythm GI/Abdominal Exam: Normal Bowel Sounds, Soft, Non-Tender, No Distention (Male) Exam: Deferred Back Exam: Normal Inspection Extremities: Normal Inspection, Normal Capillary Refill Skin: Warm, Dry Neurological: No New Focal Deficit, Normal Gait, Normal Speech Psy/Mental Status: Alert, Normal Affect, Normal Mood Sepsis Event Note - Evaluation Sepsis Screening Result: No Definite Risk - Focused Exam Vital Signs: Vital Signs Temp Pulse Resp BP Pulse Ox Pulse Ox 03/01/20 09:54 91 L 03/01/20 09:25 95 03/01/20 08:41 95 03/01/20 08:14 37.0 C 73 20 101/61 89 L 03/01/20 05:47 89 L 03/01/20 04:29 36.8 C 65 18 99/76 88 L 03/01/20 00:37 89 L - Problem List Review Problem List Initiated/Reviewed/Updated: Yes - My Orders Last 24 Hours: My Active Orders 03/01/20 10:23 Communication Order [RC] ASDIRECTED 03/02/20 05:11 BASIC METABOLIC PANEL,BMP [CHEM] DAILY CBC W/O DIFF,HEMOGRAM [HEME] DAILY DD [D-DIMER QUANTITATIVE] [COAG] DAILY 03/03/20 05:11 BASIC METABOLIC PANEL,BMP [CHEM] DAILY CBC W/O DIFF,HEMOGRAM [HEME] DAILY DD [D-DIMER QUANTITATIVE] [COAG] DAILY 03/04/20 05:11 BASIC METABOLIC PANEL,BMP [CHEM] DAILY CBC W/O DIFF,HEMOGRAM [HEME] DAILY DD [D-DIMER QUANTITATIVE] [COAG] DAILY - Plan Plan:: Assessment 02/19/2020 * 74-year-old male with pneumonia secondary to COVID-19 directly admitted to the hospital after presenting to the clinic with cough, shortness of breath, fatigue, and hypoxemia. * Risk factors include older age, male sex, and obesity. He has had a history of hypertension in the past, but currently does not take his blood pressure medications. 02/20/2020 * Patient continues with treatment for his pneumonia secondary to COVID-19. He is currently on 3 L nasal cannula and his oxygen saturations are in the low 90s. * Blood pressure well controlled off medication. 02/21/2020 * Patient did have worsening of his respiratory status overnight. He is now on high flow nasal cannula at 60 L/min. He has improved over the last several hours. * WBC of 6.3, platelets 170, D-dimer 0.28, estimated GFR greater than 60, C- reactive protein decreased to 10.3 from 14.4 * Initial procalcitonin was 0.1 02/22/2020 * Improvement in respiratory failure. Able to wean today down to high flow nasal cannula at 60 L/min at 60%. * Normal WBC, D-dimer 0.25, CRP decreased to 5.2, AST 67, ALT 89, estimated GFR greater than 60, albumin down to 2.4 * Continues on remdesivir, dexamethasone, Rocephin, and azithromycin * Improving C-reactive protein 02/23/2020 * Continue weaning of his high flow nasal cannula. Patient is generally improving. No labs drawn today. 02/24/2020 * Patient is relatively stable on high flow nasal cannula. He has had a slight increase to 50 to 55% FiO2. We will continue to monitor this. * Labs continue to improve. C-reactive protein is 2.8 with a normal white count of 7.8. Renal function shows a estimated GFR greater than 60. * It continues to be compliant with incentive spirometry and flutter valve. 02/25/2020 * Pulmonary status have mildly deteriorated in regards to work of breathing. He is essentially stable in regards to oxygen flow and percent oxygen. He has worsened over the last 24 hours with his incentive spirometry. He is also becoming more depressed. Saturations this morning were poor and we decided to move him to the ICU for closer observation. Patient had improvement in the setting in his respiratory status but worsening of his mental status. Patient became more depressed and upset. * Dexamethasone is likely making his mood worse. * Labs remain stable with white count 7.78, absolute neutrophils slightly elevated at 6.66, normal D-dimer at 0.44, decreasing C-reactive protein of 2.8, and normal GFR of greater than 60. Patient does have a continued decrease in his albumin to 2.3. 02/26/2020 * Patient's respiratory status is essentially stable from yesterday, but worse than admission. He is down to 50 L high flow O2 at 40% and his saturations are in the upper 80s to low 90s. He continues to use his incentive spirometer and he has been lying on his stomach more proning. This seems to have made a difference in his oxygenation. * Chest x-ray clearly worsened. This concerns me not just for worsening Covid pneumonia, but for healthcare associated pneumonia. * White blood cell count is increasing at 8.4, which is normal, absolute neutrophils are high at 7.52, and there is 1+ toxic granulation. * This appears to be worsening pneumonia and possibly bacterial component. He is having a better oxygenation and transfer to the ICU appears to have really affected him emotionally. Patient had a close friend that in our ICU at the beginning of the Covid pandemic and this is likely worrying him greatly. 03/01/2020 * HFNC, 50/55 * Atypical/Viral, Covid-19 PNA; No HCAP: Levaquin, Zosyn, and vancomycin--stopped 02/28/2020. * CRP has slightly started to increase. It is up to 8.4. D-dimer stays negative at 0.26. * Appetite has improved * GFR >/= 60. * Completed remdesivir, 2 units convalescent plasma, 5 days Rocephin, 3 days of azithromycin. * Competed dexamethasone. * Labile affect-improved * CXR, mildly improved; no significant pulmonary edema Plan: * Aspirin 81 mg daily * Lovenox to 40 mg subcutaneously daily * Continue to try to wean oxygen as tolerated * Routine labs in the morning * FiO2 to keep SPO2 between 88 and 94%. HFNC, 50/35-40. * Continue to titrate O2 as tolerated. * Repeat Covid labs in the morning * Encourage better nutrition intake. * CODE STATUS full code * Length of stay greater than 96 hours due to treatment of Covid pneumonia.
[2020-03-02] MEDS: Enoxaparin 40 MG/0.4 ML Syringe SUBCUT SCH ×2 (09:00→20:03)
[2020-03-02] MEDS: Saccharomyces Boulardii (Probiotic) 250 MG Cap PO SCH ×2 (09:00→20:03)
[2020-03-02] MEDS: Aspirin 81 MG Tab.Chew PO SCH (09:00)
[2020-03-02] MEDS: Albuterol 6.7 GM Inhaler INH PRN ×2 (09:20→17:47)
--- NOTE | 2020-03-02 14:36 | PCM.PN ---
- General Info Date of Service: 03/02/20 Functional Status: Reports: Pain Controlled, Tolerating Diet, Ambulating, Urinating - Review of Systems General: Reports: No Symptoms HEENT: Reports: No Symptoms Pulmonary: Reports: No Symptoms Cardiovascular: Reports: No Symptoms Gastrointestinal: Reports: No Symptoms Genitourinary: Reports: No Symptoms Musculoskeletal: Reports: No Symptoms Skin: Reports: No Symptoms Neurological: Reports: No Symptoms Psychiatric: Reports: No Symptoms - Patient Data Vitals - Most Recent: Last Vital Signs Temp 37.1 C 03/02/20 08:00 Pulse 64 03/02/20 06:25 Resp 20 03/02/20 08:00 BP 132/87 03/02/20 08:00 Pulse Ox 91 L 03/02/20 14:13 Weight - Most Recent: 105.914 kg I&O - Last 24 Hours: Intake & Output 03/01/20 03/02/20 03/02/20 22:59 06:59 14:59 Intake Total 1780 600 Balance 1780 600 Lab Results Last 24 Hours: Laboratory Results - last 24 hr 03/02/20 03/02/20 03/02/20 Range/Units 06:24 06:24 06:24 WBC 6.55 (4.23-9.07) K/mm3 RBC 4.40 L (4.63-6.08) M/mm3 Hgb 13.4 L (13.7-17.5) gm/dl Hct 42.1 (40.1-51.0) % MCV 95.7 H (79.0-92.2) fl MCH 30.5 (25.7-32.2) pg MCHC 31.8 L (32.2-35.5) g/dl RDW Std Deviation 46.2 H (35.1-43.9) fL Plt Count 209 (163-337) K/mm3 MPV 9.9 (9.4-12.3) fl D-Dimer, Quantitative 0.98 H (0.19-0.50) mg/L Sodium 138 (136-145) mEq/L Potassium 4.5 (3.5-5.1) mEq/L Chloride 104 (98-107) mEq/L Carbon Dioxide 29 (21-32) mEq/L Anion Gap 9.5 (5-15) BUN 24 H (7-18) mg/dL Creatinine 1.1 (0.7-1.3) mg/dL Est Cr Clr Drug Dosing 57.00 mL/min Estimated GFR (MDRD) > 60 (>60) mL/min BUN/Creatinine Ratio 21.8 H (14-18) Glucose 77 L (83-115) mg/dL Calcium 8.3 L (8.5-10.1) mg/dL Med Orders - Current: Current Medications Acetaminophen (Tylenol) 650 mg PO Q4H PRN PRN Reason: Pain (Mild 1-3)/fever Last Admin: 02/19/20 22:05 Dose: 650 mg Documented by: Al Hydroxide/Mg Hydroxide (Mag-Al Plus) 30 ml PO Q4H PRN PRN Reason: heart burn Last Admin: 02/28/20 16:47 Dose: 30 ml Documented by: Albuterol (Proventil Hfa) 0 gm INH Q4H PRN PRN Reason: Shortness of Breath Last Admin: 03/02/20 09:20 Dose: 2 puff Documented by: Aspirin (Aspirin) 81 mg PO DAILY [facility] Last Admin: 03/02/20 09:00 Dose: 81 mg Documented by: Enoxaparin Sodium (Lovenox) 40 mg SUBCUT Q12H [facility] Last Admin: 03/02/20 09:00 Dose: 40 mg Documented by: Lorazepam (Ativan) 0.5 mg PO Q4H PRN PRN Reason: Anxiety Last Admin: 02/28/20 12:19 Dose: 0.5 mg Documented by: Ondansetron HCl (Zofran) 4 mg IV Q4H PRN PRN Reason: Nausea/Vomiting Saccharomyces Boulardii (Florastor) 500 mg PO BID [facility] Last Admin: 03/02/20 09:00 Dose: 500 mg Documented by: Sodium Chloride (Saline Flush) 10 ml FLUSH ASDIRECTED PRN PRN Reason: Keep Vein Open Discontinued Medications Aspirin (Aspirin) 81 mg PO BEDTIME [facility] Last Admin: 02/20/20 20:20 Dose: 81 mg Documented by: Aspirin (Aspirin) 81 mg PO BEDTIME [facility] Dexamethasone (Dexamethasone) 6 mg PO Q24H [facility] Stop: 02/28/20 21:01 Last Admin: 02/28/20 20:47 Dose: 6 mg Documented by: Remdesivir 200 mg/ Sodium (Chloride) 250 mls @ 250 mls/hr IV ONETIME ONE Stop: 02/19/20 21:59 Last Admin: 02/19/20 22:02 Dose: 250 mls/hr Documented by: Remdesivir 100 mg/ Sodium (Chloride) 100 mls @ 100 mls/hr IV Q24H [facility] Stop: 02/23/20 21:59 Last Admin: 02/23/20 21:04 Dose: 100 mls/hr Documented by: Sodium Chloride (Normal Saline) 100 mls @ 25 mls/hr IV ASDIRECTED [facility] Last Admin: 02/19/20 23:46 Dose: 25 mls/hr Documented by: Azithromycin 500 mg/ Sodium (Chloride) 250 mls @ 250 mls/hr IV Q24H [facility] Stop: 02/22/20 22:59 Last Admin: 02/22/20 22:20 Dose: 250 mls/hr Documented by: Ceftriaxone Sodium 2 gm/ (Sodium Chloride) 100 mls @ 200 mls/hr IV Q24H [facility] Stop: 02/24/20 22:29 Last Admin: 02/24/20 21:26 Dose: 200 mls/hr Documented by: Piperacillin Sod/Tazobactam (Sod 4.5 gm/ Sodium Chloride) 100 mls @ 200 mls/hr IV ONETIME ONE Stop: 02/26/20 10:29 Last Admin: 02/26/20 09:58 Dose: 200 mls/hr Documented by: Piperacillin Sod/Tazobactam (Sod 4.5 gm/ Sodium Chloride) 100 mls @ 25 mls/hr IV Q8H [facility] Last Admin: 02/27/20 02:59 Dose: 25 mls/hr Documented by: Vancomycin HCl 1.75 gm/ Sodium (Chloride) 500 mls @ 250 mls/hr IV ONETIME ONE Stop: 02/26/20 12:29 Last Admin: 02/26/20 11:48 Dose: 250 mls/hr Documented by: Vancomycin HCl 1 gm/Vancomycin HCl 250 mg/ Sodium Chloride 250 mls @ 166.667 mls/hr IV Q12H [facility] Last Admin: 02/26/20 22:51 Dose: 166.667 mls/hr Documented by: Levofloxacin (Levaquin) 750 mg PO Q24H [facility] Last Admin: 02/26/20 09:57 Dose: 750 mg Documented by: Magnesium Hydroxide (Milk Of Magnesia) 30 ml PO ONETIME ONE Stop: 02/27/20 09:01 Last Admin: 02/27/20 08:38 Dose: 30 ml Documented by: Vancomycin HCl (Pharmacy To Dose - Vancomycin) 1 dose .XX ASDIRECTED PRN PRN Reason: RX TO DOSE VANCO - Exam Quality Assessment: Supplemental Oxygen (NC) General: Alert, Oriented, Cooperative, No Acute Distress HEENT: Pupils Equal, Pupils Reactive, EOMI Neck: Trachea Midline, No JVD Lungs: Normal Respiratory Effort Cardiovascular: Regular Rate, Regular Rhythm GI/Abdominal Exam: Normal Bowel Sounds, Soft, Non-Tender, No Organomegaly, No Distention (Male) Exam: Deferred Back Exam: Normal Inspection Extremities: Normal Inspection, Normal Capillary Refill Skin: Warm, Dry Neurological: No New Focal Deficit, Normal Speech Psy/Mental Status: Alert Sepsis Event Note - Evaluation Sepsis Screening Result: No Definite Risk - Focused Exam Vital Signs: Vital Signs Temp Temp Pulse Resp BP BP Pulse Ox 03/02/20 14:13 03/02/20 12:20 03/02/20 09:20 03/02/20 08:00 37.1 C 20 132/87 88 L 03/02/20 06:28 111/66 03/02/20 06:25 36.7 C 64 20 91 L Pulse Ox 03/02/20 14:13 91 L 03/02/20 12:20 93 L 03/02/20 09:20 94 L 03/02/20 08:00 03/02/20 06:28 03/02/20 06:25 - Problem List Review Problem List Initiated/Reviewed/Updated: Yes - My Orders Last 24 Hours: My Active Orders 03/03/20 05:11 BASIC METABOLIC PANEL,BMP [CHEM] DAILY CBC W/O DIFF,HEMOGRAM [HEME] DAILY DD [D-DIMER QUANTITATIVE] [COAG] DAILY 03/04/20 05:11 BASIC METABOLIC PANEL,BMP [CHEM] DAILY CBC W/O DIFF,HEMOGRAM [HEME] DAILY DD [D-DIMER QUANTITATIVE] [COAG] DAILY - Plan Plan:: Assessment 02/19/2020 * 74-year-old male with pneumonia secondary to COVID-19 directly admitted to the hospital after presenting to the clinic with cough, shortness of breath, fatigue, and hypoxemia. * Risk factors include older age, male sex, and obesity. He has had a history of hypertension in the past, but currently does not take his blood pressure medications. 02/20/2020 * Patient continues with treatment for his pneumonia secondary to COVID-19. He is currently on 3 L nasal cannula and his oxygen saturations are in the low 90s. * Blood pressure well controlled off medication. 02/21/2020 * Patient did have worsening of his respiratory status overnight. He is now on high flow nasal cannula at 60 L/min. He has improved over the last several hours. * WBC of 6.3, platelets 170, D-dimer 0.28, estimated GFR greater than 60, C- reactive protein decreased to 10.3 from 14.4 * Initial procalcitonin was 0.1 02/22/2020 * Improvement in respiratory failure. Able to wean today down to high flow nasal cannula at 60 L/min at 60%. * Normal WBC, D-dimer 0.25, CRP decreased to 5.2, AST 67, ALT 89, estimated GFR greater than 60, albumin down to 2.4 * Continues on remdesivir, dexamethasone, Rocephin, and azithromycin * Improving C-reactive protein 02/23/2020 * Continue weaning of his high flow nasal cannula. Patient is generally improving. No labs drawn today. 02/24/2020 * Patient is relatively stable on high flow nasal cannula. He has had a slight increase to 50 to 55% FiO2. We will continue to monitor this. * Labs continue to improve. C-reactive protein is 2.8 with a normal white count of 7.8. Renal function shows a estimated GFR greater than 60. * It continues to be compliant with incentive spirometry and flutter valve. 02/25/2020 * Pulmonary status have mildly deteriorated in regards to work of breathing. He is essentially stable in regards to oxygen flow and percent oxygen. He has worsened over the last 24 hours with his incentive spirometry. He is also becoming more depressed. Saturations this morning were poor and we decided to move him to the ICU for closer observation. Patient had improvement in the setting in his respiratory status but worsening of his mental status. Patient became more depressed and upset. * Dexamethasone is likely making his mood worse. * Labs remain stable with white count 7.78, absolute neutrophils slightly elevated at 6.66, normal D-dimer at 0.44, decreasing C-reactive protein of 2.8, and normal GFR of greater than 60. Patient does have a continued decrease in his albumin to 2.3. 02/26/2020 * Patient's respiratory status is essentially stable from yesterday, but worse than admission. He is down to 50 L high flow O2 at 40% and his saturations are in the upper 80s to low 90s. He continues to use his incentive spirometer and he has been lying on his stomach more proning. This seems to have made a difference in his oxygenation. * Chest x-ray clearly worsened. This concerns me not just for worsening Covid pneumonia, but for healthcare associated pneumonia. * White blood cell count is increasing at 8.4, which is normal, absolute neutrophils are high at 7.52, and there is 1+ toxic granulation. * This appears to be worsening pneumonia and possibly bacterial component. He is having a better oxygenation and transfer to the ICU appears to have really affected him emotionally. Patient had a close friend that in our ICU at the beginning of the Covid pandemic and this is likely worrying him greatly. 03/01/2020 * HFNC, 50/55-->NC, 6l /m * Atypical/Viral, Covid-19 PNA; No HCAP: Levaquin, Zosyn, and vancomycin--stopped 02/28/2020. * Appetite has improved * GFR >/= 60. * Completed remdesivir, 2 units convalescent plasma, 5 days Rocephin, 3 days of azithromycin. * Competed dexamethasone. * Labile affect-improved * CXR, mildly improved; no significant pulmonary edema Plan: * Aspirin 81 mg daily * Lovenox to 40 mg subcutaneously daily * Continue to try to wean oxygen as tolerated * Routine labs in the morning * FiO2 to keep SPO2 between 88 and 94% * Titrate O2 off as tolerated. * Encourage better nutrition intake. * CODE STATUS full code * Length of stay greater than 96 hours due to treatment of Covid pneumonia.
[2020-03-02] MEDS: Aluminum Hydroxide/Magnesium Hydroxide/Simethicone Susp 30 ML Cup PO PRN (20:23)
[2020-03-03] MEDS: Aspirin 81 MG Tab.Chew PO SCH (09:29)
[2020-03-03] MEDS: Saccharomyces Boulardii (Probiotic) 250 MG Cap PO SCH ×3 (09:29→20:07)
[2020-03-03] MEDS: Enoxaparin 40 MG/0.4 ML Syringe SUBCUT SCH ×3 (09:29→20:07)
[2020-03-03] MEDS: Albuterol 6.7 GM Inhaler INH PRN ×3 (09:42→17:05)
--- NOTE | 2020-03-03 14:32 | PCM.PN ---
- General Info Date of Service: 03/03/20 Functional Status: Reports: Tolerating Diet, Ambulating - Review of Systems General: Reports: No Symptoms HEENT: Reports: No Symptoms Pulmonary: Reports: No Symptoms Cardiovascular: Reports: No Symptoms Gastrointestinal: Reports: No Symptoms Genitourinary: Reports: No Symptoms Musculoskeletal: Reports: No Symptoms Skin: Reports: No Symptoms Neurological: Reports: No Symptoms Psychiatric: Reports: No Symptoms - Patient Data Vitals - Most Recent: Last Vital Signs Temp 36.7 C 03/03/20 08:18 Pulse 66 03/03/20 08:18 Resp 24 H 03/03/20 08:18 BP 106/67 03/03/20 08:18 Pulse Ox 91 L 03/03/20 11:01 Weight - Most Recent: 105.143 kg I&O - Last 24 Hours: Intake & Output 03/02/20 03/03/20 03/03/20 22:59 06:59 14:59 Intake Total 680 400 360 Output Total 3 Balance 680 397 360 Lab Results Last 24 Hours: Laboratory Results - last 24 hr 03/03/20 03/03/20 03/03/20 Range/Units 06:03 06:03 06:03 WBC 6.83 (4.23-9.07) K/mm3 RBC 4.18 L (4.63-6.08) M/mm3 Hgb 12.8 L (13.7-17.5) gm/dl Hct 39.9 L (40.1-51.0) % MCV 95.5 H (79.0-92.2) fl MCH 30.6 (25.7-32.2) pg MCHC 32.1 L (32.2-35.5) g/dl RDW Std Deviation 44.7 H (35.1-43.9) fL Plt Count 196 (163-337) K/mm3 MPV 9.7 (9.4-12.3) fl D-Dimer, Quantitative 0.92 H (0.19-0.50) mg/L Sodium 139 (136-145) mEq/L Potassium 3.9 (3.5-5.1) mEq/L Chloride 104 (98-107) mEq/L Carbon Dioxide 29 (21-32) mEq/L Anion Gap 9.9 (5-15) BUN 19 H (7-18) mg/dL Creatinine 1.1 (0.7-1.3) mg/dL Est Cr Clr Drug Dosing 57.00 mL/min Estimated GFR (MDRD) > 60 (>60) mL/min BUN/Creatinine Ratio 17.3 (14-18) Glucose 108 (83-115) mg/dL Calcium 8.1 L (8.5-10.1) mg/dL Med Orders - Current: Current Medications Acetaminophen (Tylenol) 650 mg PO Q4H PRN PRN Reason: Pain (Mild 1-3)/fever Last Admin: 02/19/20 22:05 Dose: 650 mg Documented by: Al Hydroxide/Mg Hydroxide (Mag-Al Plus) 30 ml PO Q4H PRN PRN Reason: heart burn Last Admin: 03/02/20 20:23 Dose: 30 ml Documented by: Albuterol (Proventil Hfa) 0 gm INH Q4H PRN PRN Reason: Shortness of Breath Last Admin: 03/03/20 14:18 Dose: 2 puff Documented by: Aspirin (Aspirin) 81 mg PO DAILY [facility] Last Admin: 03/03/20 09:29 Dose: 81 mg Documented by: Enoxaparin Sodium (Lovenox) 40 mg SUBCUT Q12H [facility] Last Admin: 03/03/20 09:29 Dose: 40 mg Documented by: Lorazepam (Ativan) 0.5 mg PO Q4H PRN PRN Reason: Anxiety Last Admin: 02/28/20 12:19 Dose: 0.5 mg Documented by: Ondansetron HCl (Zofran) 4 mg IV Q4H PRN PRN Reason: Nausea/Vomiting Saccharomyces Boulardii (Florastor) 500 mg PO BID [facility] Last Admin: 03/03/20 09:29 Dose: 500 mg Documented by: Sodium Chloride (Saline Flush) 10 ml FLUSH ASDIRECTED PRN PRN Reason: Keep Vein Open Discontinued Medications Aspirin (Aspirin) 81 mg PO BEDTIME [facility] Last Admin: 02/20/20 20:20 Dose: 81 mg Documented by: Aspirin (Aspirin) 81 mg PO BEDTIME [facility] Dexamethasone (Dexamethasone) 6 mg PO Q24H [facility] Stop: 02/28/20 21:01 Last Admin: 02/28/20 20:47 Dose: 6 mg Documented by: Remdesivir 200 mg/ Sodium (Chloride) 250 mls @ 250 mls/hr IV ONETIME ONE Stop: 02/19/20 21:59 Last Admin: 02/19/20 22:02 Dose: 250 mls/hr Documented by: Remdesivir 100 mg/ Sodium (Chloride) 100 mls @ 100 mls/hr IV Q24H [facility] Stop: 02/23/20 21:59 Last Admin: 02/23/20 21:04 Dose: 100 mls/hr Documented by: Sodium Chloride (Normal Saline) 100 mls @ 25 mls/hr IV ASDIRECTED [facility] Last Admin: 02/19/20 23:46 Dose: 25 mls/hr Documented by: Azithromycin 500 mg/ Sodium (Chloride) 250 mls @ 250 mls/hr IV Q24H [facility] Stop: 02/22/20 22:59 Last Admin: 02/22/20 22:20 Dose: 250 mls/hr Documented by: Ceftriaxone Sodium 2 gm/ (Sodium Chloride) 100 mls @ 200 mls/hr IV Q24H [facility] Stop: 02/24/20 22:29 Last Admin: 02/24/20 21:26 Dose: 200 mls/hr Documented by: Piperacillin Sod/Tazobactam (Sod 4.5 gm/ Sodium Chloride) 100 mls @ 200 mls/hr IV ONETIME ONE Stop: 02/26/20 10:29 Last Admin: 02/26/20 09:58 Dose: 200 mls/hr Documented by: Piperacillin Sod/Tazobactam (Sod 4.5 gm/ Sodium Chloride) 100 mls @ 25 mls/hr IV Q8H [facility] Last Admin: 02/27/20 02:59 Dose: 25 mls/hr Documented by: Vancomycin HCl 1.75 gm/ Sodium (Chloride) 500 mls @ 250 mls/hr IV ONETIME ONE Stop: 02/26/20 12:29 Last Admin: 02/26/20 11:48 Dose: 250 mls/hr Documented by: Vancomycin HCl 1 gm/Vancomycin HCl 250 mg/ Sodium Chloride 250 mls @ 166.667 mls/hr IV Q12H [facility] Last Admin: 02/26/20 22:51 Dose: 166.667 mls/hr Documented by: Levofloxacin (Levaquin) 750 mg PO Q24H [facility] Last Admin: 02/26/20 09:57 Dose: 750 mg Documented by: Magnesium Hydroxide (Milk Of Magnesia) 30 ml PO ONETIME ONE Stop: 02/27/20 09:01 Last Admin: 02/27/20 08:38 Dose: 30 ml Documented by: Vancomycin HCl (Pharmacy To Dose - Vancomycin) 1 dose .XX ASDIRECTED PRN PRN Reason: RX TO DOSE VANCO - Exam Quality Assessment: Supplemental Oxygen (4 l/m), DVT Prophylaxis General: Alert, Oriented, Cooperative, No Acute Distress HEENT: Pupils Equal, Pupils Reactive, EOMI Neck: Trachea Midline, No JVD Lungs: Normal Respiratory Effort, Decreased Breath Sounds Cardiovascular: Regular Rate, Regular Rhythm GI/Abdominal Exam: Normal Bowel Sounds, Soft, Non-Tender, No Organomegaly, No Distention (Male) Exam: Deferred Back Exam: Normal Inspection Extremities: Normal Inspection, No Pedal Edema, Normal Capillary Refill Skin: Warm, Dry Neurological: No New Focal Deficit Psy/Mental Status: Alert, Normal Affect, Normal Mood Sepsis Event Note - Evaluation Sepsis Screening Result: No Definite Risk - Focused Exam Vital Signs: Vital Signs Temp Pulse Resp BP Pulse Ox Pulse Ox 03/03/20 11:01 91 L 03/03/20 09:42 93 L 03/03/20 08:18 36.7 C 66 24 H 106/67 90 L 03/03/20 06:00 36.6 C 67 18 106/70 91 L - Problem List Review Problem List Initiated/Reviewed/Updated: Yes - My Orders Last 24 Hours: My Active Orders 03/04/20 05:11 BASIC METABOLIC PANEL,BMP [CHEM] DAILY CBC W/O DIFF,HEMOGRAM [HEME] DAILY DD [D-DIMER QUANTITATIVE] [COAG] DAILY 03/04/20 06:00 CRP [C-REACTIVE PROTEIN] [CHEM] Routine - Plan Plan:: Assessment 02/19/2020 * 74-year-old male with pneumonia secondary to COVID-19 directly admitted to the hospital after presenting to the clinic with cough, shortness of breath, fatigue, and hypoxemia. * Risk factors include older age, male sex, and obesity. He has had a history of hypertension in the past, but currently does not take his blood pressure medications. 02/20/2020 * Patient continues with treatment for his pneumonia secondary to COVID-19. He is currently on 3 L nasal cannula and his oxygen saturations are in the low 90s. * Blood pressure well controlled off medication. 02/21/2020 * Patient did have worsening of his respiratory status overnight. He is now on high flow nasal cannula at 60 L/min. He has improved over the last several hours. * WBC of 6.3, platelets 170, D-dimer 0.28, estimated GFR greater than 60, C- reactive protein decreased to 10.3 from 14.4 * Initial procalcitonin was 0.1 02/22/2020 * Improvement in respiratory failure. Able to wean today down to high flow nasal cannula at 60 L/min at 60%. * Normal WBC, D-dimer 0.25, CRP decreased to 5.2, AST 67, ALT 89, estimated GFR greater than 60, albumin down to 2.4 * Continues on remdesivir, dexamethasone, Rocephin, and azithromycin * Improving C-reactive protein 02/23/2020 * Continue weaning of his high flow nasal cannula. Patient is generally improving. No labs drawn today. 02/24/2020 * Patient is relatively stable on high flow nasal cannula. He has had a slight increase to 50 to 55% FiO2. We will continue to monitor this. * Labs continue to improve. C-reactive protein is 2.8 with a normal white count of 7.8. Renal function shows a estimated GFR greater than 60. * It continues to be compliant with incentive spirometry and flutter valve. 02/25/2020 * Pulmonary status have mildly deteriorated in regards to work of breathing. He is essentially stable in regards to oxygen flow and percent oxygen. He has worsened over the last 24 hours with his incentive spirometry. He is also becoming more depressed. Saturations this morning were poor and we decided to move him to the ICU for closer observation. Patient had improvement in the setting in his respiratory status but worsening of his mental status. Patient became more depressed and upset. * Dexamethasone is likely making his mood worse. * Labs remain stable with white count 7.78, absolute neutrophils slightly elevated at 6.66, normal D-dimer at 0.44, decreasing C-reactive protein of 2.8, and normal GFR of greater than 60. Patient does have a continued decrease in his albumin to 2.3. 02/26/2020 * Patient's respiratory status is essentially stable from yesterday, but worse than admission. He is down to 50 L high flow O2 at 40% and his saturations are in the upper 80s to low 90s. He continues to use his incentive spirometer and he has been lying on his stomach more proning. This seems to have made a difference in his oxygenation. * Chest x-ray clearly worsened. This concerns me not just for worsening Covid pneumonia, but for healthcare associated pneumonia. * White blood cell count is increasing at 8.4, which is normal, absolute neutrophils are high at 7.52, and there is 1+ toxic granulation. * This appears to be worsening pneumonia and possibly bacterial component. He is having a better oxygenation and transfer to the ICU appears to have really affected him emotionally. Patient had a close friend that in our ICU at the beginning of the Covid pandemic and this is likely worrying him greatly. 03/03/2020 * HFNC, 50/55-->NC, 6l /m-->4 l/m * Atypical/Viral, Covid-19 PNA; No HCAP: Levaquin, Zosyn, and vancomycin--stopped 02/28/2020. * Appetite has improved * GFR >/= 60. * Completed remdesivir, 2 units convalescent plasma, 5 days Rocephin, 3 days of azithromycin. * Competed dexamethasone. * Labile affect-improved * CXR, mildly improved; no significant pulmonary edema Plan: * Aspirin 81 mg daily * Lovenox to 40 mg subcutaneously daily * Continue to try to wean oxygen as tolerated * Routine labs in the morning * FiO2 to keep SPO2 between 88 and 94% * Titrate O2 off as tolerated. * Encourage better nutrition intake. * CODE STATUS full code * Length of stay greater than 96 hours due to treatment of Covid pneumonia.
[2020-03-04] MEDS: Albuterol 6.7 GM Inhaler INH PRN ×4 (09:22→20:52)
--- NOTE | 2020-03-04 10:18 | PCM.PN ---
- General Info Date of Service: 03/04/20 Subjective Update: Patient denies SOB, unable to titrate down O2. DC will be 24-48 hours. Will need O2 therapy at DC. Functional Status: Reports: Tolerating Diet, Ambulating, Urinating - Review of Systems General: Reports: No Symptoms HEENT: Reports: No Symptoms Pulmonary: Reports: No Symptoms Cardiovascular: Reports: No Symptoms Gastrointestinal: Reports: No Symptoms Genitourinary: Reports: No Symptoms Musculoskeletal: Reports: No Symptoms Skin: Reports: No Symptoms Neurological: Reports: No Symptoms Psychiatric: Reports: No Symptoms - Patient Data Vitals - Most Recent: Last Vital Signs Temp 36.8 C 03/04/20 06:38 Pulse 76 03/04/20 06:38 Resp 20 03/04/20 06:38 BP 108/70 03/04/20 06:38 Pulse Ox 91 L 03/04/20 09:24 Weight - Most Recent: 104.734 kg I&O - Last 24 Hours: Intake & Output 03/03/20 03/04/20 03/04/20 22:59 06:59 14:59 Intake Total 1220 800 Balance 1220 800 Lab Results Last 24 Hours: Laboratory Results - last 24 hr 03/04/20 03/04/20 03/04/20 Range/Units 06:12 06:12 06:12 WBC 5.98 (4.23-9.07) K/mm3 RBC 4.25 L (4.63-6.08) M/mm3 Hgb 13.0 L (13.7-17.5) gm/dl Hct 40.4 (40.1-51.0) % MCV 95.1 H (79.0-92.2) fl MCH 30.6 (25.7-32.2) pg MCHC 32.2 (32.2-35.5) g/dl RDW Std Deviation 45.1 H (35.1-43.9) fL Plt Count 200 (163-337) K/mm3 MPV 9.9 (9.4-12.3) fl D-Dimer, Quantitative 0.85 H (0.19-0.50) mg/L Sodium 138 (136-145) mEq/L Potassium 4.1 (3.5-5.1) mEq/L Chloride 105 (98-107) mEq/L Carbon Dioxide 26 (21-32) mEq/L Anion Gap 11.1 (5-15) BUN 17 (7-18) mg/dL Creatinine 1.0 (0.7-1.3) mg/dL Est Cr Clr Drug Dosing 62.70 mL/min Estimated GFR (MDRD) > 60 (>60) mL/min BUN/Creatinine Ratio 17.0 (14-18) Glucose 90 (83-115) mg/dL Calcium 8.1 L (8.5-10.1) mg/dL C-Reactive Protein (<1.0) mg/dL 03/04/20 Range/Units 06:12 WBC (4.23-9.07) K/mm3 RBC (4.63-6.08) M/mm3 Hgb (13.7-17.5) gm/dl Hct (40.1-51.0) % MCV (79.0-92.2) fl MCH (25.7-32.2) pg MCHC (32.2-35.5) g/dl RDW Std Deviation (35.1-43.9) fL Plt Count (163-337) K/mm3 MPV (9.4-12.3) fl D-Dimer, Quantitative (0.19-0.50) mg/L Sodium (136-145) mEq/L Potassium (3.5-5.1) mEq/L Chloride (98-107) mEq/L Carbon Dioxide (21-32) mEq/L Anion Gap (5-15) BUN (7-18) mg/dL Creatinine (0.7-1.3) mg/dL Est Cr Clr Drug Dosing mL/min Estimated GFR (MDRD) (>60) mL/min BUN/Creatinine Ratio (14-18) Glucose (83-115) mg/dL Calcium (8.5-10.1) mg/dL C-Reactive Protein 4.1 H* (<1.0) mg/dL Med Orders - Current: Current Medications Acetaminophen (Tylenol) 650 mg PO Q4H PRN PRN Reason: Pain (Mild 1-3)/fever Last Admin: 02/19/20 22:05 Dose: 650 mg Documented by: Al Hydroxide/Mg Hydroxide (Mag-Al Plus) 30 ml PO Q4H PRN PRN Reason: heart burn Last Admin: 03/02/20 20:23 Dose: 30 ml Documented by: Albuterol (Proventil Hfa) 0 gm INH Q4H PRN PRN Reason: Shortness of Breath Last Admin: 03/04/20 09:22 Dose: 2 puff Documented by: Aspirin (Aspirin) 81 mg PO DAILY [facility] Last Admin: 03/03/20 09:29 Dose: 81 mg Documented by: Enoxaparin Sodium (Lovenox) 40 mg SUBCUT Q12H [facility] Last Admin: 03/03/20 20:07 Dose: Not Given Documented by: Lorazepam (Ativan) 0.5 mg PO Q4H PRN PRN Reason: Anxiety Last Admin: 02/28/20 12:19 Dose: 0.5 mg Documented by: Ondansetron HCl (Zofran) 4 mg IV Q4H PRN PRN Reason: Nausea/Vomiting Saccharomyces Boulardii (Florastor) 500 mg PO BID [facility] Last Admin: 03/03/20 20:07 Dose: Not Given Documented by: Sodium Chloride (Saline Flush) 10 ml FLUSH ASDIRECTED PRN PRN Reason: Keep Vein Open Discontinued Medications Aspirin (Aspirin) 81 mg PO BEDTIME [facility] Last Admin: 02/20/20 20:20 Dose: 81 mg Documented by: Aspirin (Aspirin) 81 mg PO BEDTIME [facility] Dexamethasone (Dexamethasone) 6 mg PO Q24H [facility] Stop: 02/28/20 21:01 Last Admin: 02/28/20 20:47 Dose: 6 mg Documented by: Remdesivir 200 mg/ Sodium (Chloride) 250 mls @ 250 mls/hr IV ONETIME ONE Stop: 02/19/20 21:59 Last Admin: 02/19/20 22:02 Dose: 250 mls/hr Documented by: Remdesivir 100 mg/ Sodium (Chloride) 100 mls @ 100 mls/hr IV Q24H [facility] Stop: 02/23/20 21:59 Last Admin: 02/23/20 21:04 Dose: 100 mls/hr Documented by: Sodium Chloride (Normal Saline) 100 mls @ 25 mls/hr IV ASDIRECTED [facility] Last Admin: 02/19/20 23:46 Dose: 25 mls/hr Documented by: Azithromycin 500 mg/ Sodium (Chloride) 250 mls @ 250 mls/hr IV Q24H [facility] Stop: 02/22/20 22:59 Last Admin: 02/22/20 22:20 Dose: 250 mls/hr Documented by: Ceftriaxone Sodium 2 gm/ (Sodium Chloride) 100 mls @ 200 mls/hr IV Q24H [facility] Stop: 02/24/20 22:29 Last Admin: 02/24/20 21:26 Dose: 200 mls/hr Documented by: Piperacillin Sod/Tazobactam (Sod 4.5 gm/ Sodium Chloride) 100 mls @ 200 mls/hr IV ONETIME ONE Stop: 02/26/20 10:29 Last Admin: 02/26/20 09:58 Dose: 200 mls/hr Documented by: Piperacillin Sod/Tazobactam (Sod 4.5 gm/ Sodium Chloride) 100 mls @ 25 mls/hr IV Q8H [facility] Last Admin: 02/27/20 02:59 Dose: 25 mls/hr Documented by: Vancomycin HCl 1.75 gm/ Sodium (Chloride) 500 mls @ 250 mls/hr IV ONETIME ONE Stop: 02/26/20 12:29 Last Admin: 02/26/20 11:48 Dose: 250 mls/hr Documented by: Vancomycin HCl 1 gm/Vancomycin HCl 250 mg/ Sodium Chloride 250 mls @ 166.667 mls/hr IV Q12H [facility] Last Admin: 02/26/20 22:51 Dose: 166.667 mls/hr Documented by: Levofloxacin (Levaquin) 750 mg PO Q24H [facility] Last Admin: 02/26/20 09:57 Dose: 750 mg Documented by: Magnesium Hydroxide (Milk Of Magnesia) 30 ml PO ONETIME ONE Stop: 02/27/20 09:01 Last Admin: 02/27/20 08:38 Dose: 30 ml Documented by: Vancomycin HCl (Pharmacy To Dose - Vancomycin) 1 dose .XX ASDIRECTED PRN PRN Reason: RX TO DOSE VANCO - Exam Quality Assessment: Supplemental Oxygen, DVT Prophylaxis General: Alert, Oriented, Cooperative, No Acute Distress HEENT: Pupils Equal, Pupils Reactive, EOMI Neck: Trachea Midline, No JVD Lungs: Normal Respiratory Effort, Decreased Breath Sounds Cardiovascular: Regular Rate, Regular Rhythm GI/Abdominal Exam: Normal Bowel Sounds, Soft, Non-Tender, No Organomegaly (Male) Exam: Deferred Back Exam: Normal Inspection Extremities: Normal Inspection, Normal Capillary Refill Sepsis Event Note - Evaluation Sepsis Screening Result: No Definite Risk - Focused Exam Vital Signs: Vital Signs Temp Pulse Resp BP Pulse Ox Pulse Ox 03/04/20 09:24 91 L 03/04/20 06:38 36.8 C 76 20 108/70 87 L 03/04/20 03:30 36.7 C 76 18 110/77 89 L - Problem List Review Problem List Initiated/Reviewed/Updated: Yes - Plan Plan:: Assessment 02/19/2020 * 74-year-old male with pneumonia secondary to COVID-19 directly admitted to the hospital after presenting to the clinic with cough, shortness of breath, fatigue, and hypoxemia. * Risk factors include older age, male sex, and obesity. He has had a history of hypertension in the past, but currently does not take his blood pressure medications. 02/20/2020 * Patient continues with treatment for his pneumonia secondary to COVID-19. He is currently on 3 L nasal cannula and his oxygen saturations are in the low 90s. * Blood pressure well controlled off medication. 02/21/2020 * Patient did have worsening of his respiratory status overnight. He is now on high flow nasal cannula at 60 L/min. He has improved over the last several hours. * WBC of 6.3, platelets 170, D-dimer 0.28, estimated GFR greater than 60, C-re active protein decreased to 10.3 from 14.4 * Initial procalcitonin was 0.1 02/22/2020 * Improvement in respiratory failure. Able to wean today down to high flow nasal cannula at 60 L/min at 60%. * Normal WBC, D-dimer 0.25, CRP decreased to 5.2, AST 67, ALT 89, estimated GFR greater than 60, albumin down to 2.4 * Continues on remdesivir, dexamethasone, Rocephin, and azithromycin * Improving C-reactive protein 02/23/2020 * Continue weaning of his high flow nasal cannula. Patient is generally improving. No labs drawn today. 02/24/2020 * Patient is relatively stable on high flow nasal cannula. He has had a slight increase to 50 to 55% FiO2. We will continue to monitor this. * Labs continue to improve. C-reactive protein is 2.8 with a normal white count of 7.8. Renal function shows a estimated GFR greater than 60. * It continues to be compliant with incentive spirometry and flutter valve. 02/25/2020 * Pulmonary status have mildly deteriorated in regards to work of breathing. He is essentially stable in regards to oxygen flow and percent oxygen. He has worsened over the last 24 hours with his incentive spirometry. He is also becoming more depressed. Saturations this morning were poor and we decided to move him to the ICU for closer observation. Patient had improvement in the setting in his respiratory status but worsening of his mental status. Patient became more depressed and upset. * Dexamethasone is likely making his mood worse. * Labs remain stable with white count 7.78, absolute neutrophils slightly elevated at 6.66, normal D-dimer at 0.44, decreasing C-reactive protein of 2.8, and normal GFR of greater than 60. Patient does have a continued decrease in his albumin to 2.3. 02/26/2020 * Patient's respiratory status is essentially stable from yesterday, but worse than admission. He is down to 50 L high flow O2 at 40% and his saturations are in the upper 80s to low 90s. He continues to use his incentive spirometer and he has been lying on his stomach more proning. This seems to have made a difference in his oxygenation. * Chest x-ray clearly worsened. This concerns me not just for worsening Covid pneumonia, but for healthcare associated pneumonia. * White blood cell count is increasing at 8.4, which is normal, absolute neutrophils are high at 7.52, and there is 1+ toxic granulation. * This appears to be worsening pneumonia and possibly bacterial component. He is having a better oxygenation and transfer to the ICU appears to have really affected him emotionally. Patient had a close friend that in our ICU at the beginning of the Covid pandemic and this is likely worrying him greatly. 03/03/2020 * HFNC, 50/55-->NC, 6l /m-->3 to4 l/m; hypoxemia/unable to titrate off. * Atypical/Viral, Covid-19 PNA; No HCAP: Levaquin, Zosyn, and vancomycin--stopped 02/28/2020. * Appetite has improved * GFR >/= 60. * Completed remdesivir, 2 units convalescent plasma, 5 days Rocephin, 3 days of azithromycin. * Competed dexamethasone. * Labile affect-improved * CXR, mildly improved; no significant pulmonary edema Plan: * Aspirin 81 mg daily * Lovenox to 40 mg subcutaneously daily * Continue to try to wean oxygen as tolerated * Routine labs in the morning * FiO2 to keep SPO2 between 88 and 94% * Titrate O2 off as tolerated. * Encourage better nutrition intake. * CODE STATUS full code * Length of stay greater than 96 hours due to treatment of Covid pneumonia. * DC, 24-48 hours.
[2020-03-04] MEDS: Aspirin 81 MG Tab.Chew PO SCH (11:09)
[2020-03-04] MEDS: Saccharomyces Boulardii (Probiotic) 250 MG Cap PO SCH ×2 (11:09→20:33)
[2020-03-04] MEDS: Enoxaparin 40 MG/0.4 ML Syringe SUBCUT SCH ×2 (11:09→20:33)
[2020-03-04] MEDS: Aluminum Hydroxide/Magnesium Hydroxide/Simethicone Susp 30 ML Cup PO PRN (17:51)
[2020-03-05] MEDS: Albuterol 6.7 GM Inhaler INH PRN ×4 (05:31→20:43)
[2020-03-05] MEDS ORDERED: Vancomycin 1 GM SDV ONE (08:45)
[2020-03-05] MEDS: Levofloxacin/Dextrose 5%-Water 750 MG in Premix Bag 1 BAG IV SCH (08:57)
[2020-03-05] MEDS ORDERED: Vancomycin 1.75 GM in Sodium Chloride 0.9% 500 ML IV ONE (09:00)
[2020-03-05] MEDS: Enoxaparin 40 MG/0.4 ML Syringe SUBCUT SCH ×2 (09:00→20:37)
[2020-03-05] MEDS: Aspirin 81 MG Tab.Chew PO SCH (09:01)
[2020-03-05] MEDS: Saccharomyces Boulardii (Probiotic) 250 MG Cap PO SCH ×2 (09:01→20:37)
--- NOTE | 2020-03-05 10:54 | CR ---
PROCEDURE INFORMATION: Exam: XR Chest, 1 View Exam date and time: 03/05/2020 7:40 AM Age: 75 years old Clinical indication: Shortness of breath and other: Covid-19 positive TECHNIQUE: Imaging protocol: XR of the chest Views: 1 view. COMPARISON: CR Chest 1V Frontal 03/01/2020 9:47 AM FINDINGS: Lungs: Coarse bilateral interstitial opacities with nodular areas of consolidation. Findings unchanged from 03/01/2020. Shallow inspiration. Pleural space: Unremarkable. No pleural effusion. No pneumothorax. Heart/Mediastinum: Trachea is deviated to the right which is stable. Bones/joints: Unremarkable. IMPRESSION: Patchy bilateral areas of nodular consolidation and interstitial infiltrate, unchanged from 03/01/2020. Thank you for allowing us to participate in the care of your patient. Dictated and Authenticated by: Stacey Ayon MD 03/05/2020 10:24 AM Central Time ([place] & [place]) [facility]
--- NOTE | 2020-03-05 11:37 | PCM.PN ---
- General Info Date of Service: 03/05/20 Functional Status: Reports: Pain Controlled, Tolerating Diet, Ambulating, Urinating - Review of Systems General: Reports: No Symptoms HEENT: Reports: No Symptoms Pulmonary: Reports: No Symptoms Cardiovascular: Reports: No Symptoms Gastrointestinal: Reports: No Symptoms Genitourinary: Reports: No Symptoms Musculoskeletal: Reports: No Symptoms Skin: Reports: No Symptoms Neurological: Reports: No Symptoms Psychiatric: Reports: No Symptoms - Patient Data Vitals - Most Recent: Last Vital Signs Temp 36.6 C 03/05/20 05:19 Pulse 94 03/05/20 09:04 Resp 16 03/05/20 09:04 BP 107/68 03/05/20 09:04 Pulse Ox 86 L 03/05/20 09:04 Weight - Most Recent: 101.469 kg I&O - Last 24 Hours: Intake & Output 03/04/20 03/05/20 03/05/20 22:59 06:59 14:59 Intake Total 1380 400 Balance 1380 400 Med Orders - Current: Current Medications Acetaminophen (Tylenol) 650 mg PO Q4H PRN PRN Reason: Pain (Mild 1-3)/fever Last Admin: 02/19/20 22:05 Dose: 650 mg Documented by: Al Hydroxide/Mg Hydroxide (Mag-Al Plus) 30 ml PO Q4H PRN PRN Reason: heart burn Last Admin: 03/04/20 17:51 Dose: 30 ml Documented by: Albuterol (Proventil Hfa) 0 gm INH Q4H PRN PRN Reason: Shortness of Breath Last Admin: 03/05/20 08:22 Dose: 2 puff Documented by: Aspirin (Aspirin) 81 mg PO DAILY [facility] Last Admin: 03/05/20 09:01 Dose: 81 mg Documented by: Enoxaparin Sodium (Lovenox) 40 mg SUBCUT Q12H [facility] Last Admin: 03/05/20 09:00 Dose: 40 mg Documented by: Levofloxacin/Dextrose 750 mg/ (Premix) 150 mls @ 100 mls/hr IV Q24H [facility] Last Admin: 03/05/20 08:57 Dose: 100 mls/hr Documented by: Vancomycin HCl 1 gm/Vancomycin HCl 250 mg/ Sodium Chloride 250 mls @ 166.667 mls/hr IV Q12H [facility] Lorazepam (Ativan) 0.5 mg PO Q4H PRN PRN Reason: Anxiety Last Admin: 02/28/20 12:19 Dose: 0.5 mg Documented by: Ondansetron HCl (Zofran) 4 mg IV Q4H PRN PRN Reason: Nausea/Vomiting Saccharomyces Boulardii (Florastor) 500 mg PO BID [facility] Last Admin: 03/05/20 09:01 Dose: 500 mg Documented by: Sodium Chloride (Saline Flush) 10 ml FLUSH ASDIRECTED PRN PRN Reason: Keep Vein Open Vancomycin HCl (Pharmacy To Dose - Vancomycin) 1 dose .XX ASDIRECTED [facility] Discontinued Medications Aspirin (Aspirin) 81 mg PO BEDTIME [facility] Last Admin: 02/20/20 20:20 Dose: 81 mg Documented by: Aspirin (Aspirin) 81 mg PO BEDTIME [facility] Dexamethasone (Dexamethasone) 6 mg PO Q24H [facility] Stop: 02/28/20 21:01 Last Admin: 02/28/20 20:47 Dose: 6 mg Documented by: Remdesivir 200 mg/ Sodium (Chloride) 250 mls @ 250 mls/hr IV ONETIME ONE Stop: 02/19/20 21:59 Last Admin: 02/19/20 22:02 Dose: 250 mls/hr Documented by: Remdesivir 100 mg/ Sodium (Chloride) 100 mls @ 100 mls/hr IV Q24H [facility] Stop: 02/23/20 21:59 Last Admin: 02/23/20 21:04 Dose: 100 mls/hr Documented by: Sodium Chloride (Normal Saline) 100 mls @ 25 mls/hr IV ASDIRECTED [facility] Last Admin: 02/19/20 23:46 Dose: 25 mls/hr Documented by: Azithromycin 500 mg/ Sodium (Chloride) 250 mls @ 250 mls/hr IV Q24H [facility] Stop: 02/22/20 22:59 Last Admin: 02/22/20 22:20 Dose: 250 mls/hr Documented by: Ceftriaxone Sodium 2 gm/ (Sodium Chloride) 100 mls @ 200 mls/hr IV Q24H [facility] Stop: 02/24/20 22:29 Last Admin: 02/24/20 21:26 Dose: 200 mls/hr Documented by: Piperacillin Sod/Tazobactam (Sod 4.5 gm/ Sodium Chloride) 100 mls @ 200 mls/hr IV ONETIME ONE Stop: 02/26/20 10:29 Last Admin: 02/26/20 09:58 Dose: 200 mls/hr Documented by: Piperacillin Sod/Tazobactam (Sod 4.5 gm/ Sodium Chloride) 100 mls @ 25 mls/hr IV Q8H [facility] Last Admin: 02/27/20 02:59 Dose: 25 mls/hr Documented by: Vancomycin HCl 1.75 gm/ Sodium (Chloride) 500 mls @ 250 mls/hr IV ONETIME ONE Stop: 02/26/20 12:29 Last Admin: 02/26/20 11:48 Dose: 250 mls/hr Documented by: Vancomycin HCl 1 gm/Vancomycin HCl 250 mg/ Sodium Chloride 250 mls @ 166.667 mls/hr IV Q12H [facility] Last Admin: 02/26/20 22:51 Dose: 166.667 mls/hr Documented by: Vancomycin HCl 1.75 gm/ Sodium (Chloride) 500 mls @ 250 mls/hr IV ONETIME ONE Stop: 03/05/20 10:59 Last Admin: 03/05/20 08:55 Dose: 250 mls/hr Documented by: Levofloxacin (Levaquin) 750 mg PO Q24H [facility] Last Admin: 02/26/20 09:57 Dose: 750 mg Documented by: Magnesium Hydroxide (Milk Of Magnesia) 30 ml PO ONETIME ONE Stop: 02/27/20 09:01 Last Admin: 02/27/20 08:38 Dose: 30 ml Documented by: Vancomycin HCl (Pharmacy To Dose - Vancomycin) 1 dose .XX ASDIRECTED PRN PRN Reason: RX TO DOSE VANCO Vancomycin HCl (Vancomycin) Confirm Administered Dose 2 gm .ROUTE .STK-MED ONE Stop: 03/05/20 08:46 Last Admin: 03/05/20 08:57 Dose: 1 gm Documented by: - Exam Quality Assessment: Supplemental Oxygen General: Alert, Oriented, Cooperative, No Acute Distress HEENT: Pupils Equal, Pupils Reactive, EOMI Neck: Trachea Midline, No JVD Lungs: Normal Respiratory Effort Cardiovascular: Regular Rate, Regular Rhythm GI/Abdominal Exam: Normal Bowel Sounds, Soft, Non-Tender, No Organomegaly, No Distention (Male) Exam: Deferred Back Exam: Normal Inspection Extremities: Normal Inspection, Normal Capillary Refill Skin: Warm Neurological: No New Focal Deficit Psy/Mental Status: Alert, Normal Affect, Normal Mood Sepsis Event Note - Evaluation Sepsis Screening Result: No Definite Risk - Focused Exam Vital Signs: Vital Signs Temp Pulse Resp BP Pulse Ox Pulse Ox 03/05/20 09:04 94 16 107/68 86 L 03/05/20 08:22 90 L 03/05/20 05:33 87 L 03/05/20 05:19 36.6 C 68 20 124/96 H 88 L - Problem List & Annotations (1) Pneumonia SNOMED Code(s): 726688241 Code(s): J18.9 - PNEUMONIA, UNSPECIFIED ORGANISM Status: Acute Current Visit: Yes Qualifiers: Pneumonia type: due to unspecified organism - Problem List Review Problem List Initiated/Reviewed/Updated: Yes - My Orders Last 24 Hours: My Active Orders 03/05/20 08:00 Pharmacy to Dose - Vancomycin 1 dose .XX ASDIRECTED 03/05/20 09:00 Levofloxacin/Dextrose 5%-Water [Levaquin in D5W 750 MG/150 ML] 750 mg Premix Bag 1 bag IV Q24H 03/05/20 10:45 LACTIC ACID [CHEM] Routine 03/05/20 21:00 Vancomycin 1 gm Vancomycin 250 mg Sodium Chloride 0.9% [Normal Saline] 250 ml IV Q12H - Plan Plan:: Assessment 02/19/2020 * 74-year-old male with pneumonia secondary to COVID-19 directly admitted to the hospital after presenting to the clinic with cough, shortness of breath, fatigue, and hypoxemia. * Risk factors include older age, male sex, and obesity. He has had a history of hypertension in the past, but currently does not take his blood pressure medications. 02/20/2020 * Patient continues with treatment for his pneumonia secondary to COVID-19. He is currently on 3 L nasal cannula and his oxygen saturations are in the low 90s. * Blood pressure well controlled off medication. 02/21/2020 * Patient did have worsening of his respiratory status overnight. He is now on high flow nasal cannula at 60 L/min. He has improved over the last several hours. * WBC of 6.3, platelets 170, D-dimer 0.28, estimated GFR greater than 60, C- reactive protein decreased to 10.3 from 14.4 * Initial procalcitonin was 0.1 02/22/2020 * Improvement in respiratory failure. Able to wean today down to high flow nasal cannula at 60 L/min at 60%. * Normal WBC, D-dimer 0.25, CRP decreased to 5.2, AST 67, ALT 89, estimated GFR greater than 60, albumin down to 2.4 * Continues on remdesivir, dexamethasone, Rocephin, and azithromycin * Improving C-reactive protein 02/23/2020 * Continue weaning of his high flow nasal cannula. Patient is generally improving. No labs drawn today. 02/24/2020 * Patient is relatively stable on high flow nasal cannula. He has had a slight increase to 50 to 55% FiO2. We will continue to monitor this. * Labs continue to improve. C-reactive protein is 2.8 with a normal white count of 7.8. Renal function shows a estimated GFR greater than 60. * It continues to be compliant with incentive spirometry and flutter valve. 02/25/2020 * Pulmonary status have mildly deteriorated in regards to work of breathing. He is essentially stable in regards to oxygen flow and percent oxygen. He has worsened over the last 24 hours with his incentive spirometry. He is also becoming more depressed. Saturations this morning were poor and we decided to move him to the ICU for closer observation. Patient had improvement in the setting in his respiratory status but worsening of his mental status. Patient became more depressed and upset. * Dexamethasone is likely making his mood worse. * Labs remain stable with white count 7.78, absolute neutrophils slightly elevated at 6.66, normal D-dimer at 0.44, decreasing C-reactive protein of 2.8, and normal GFR of greater than 60. Patient does have a continued decrease in his albumin to 2.3. 02/26/2020 * Patient's respiratory status is essentially stable from yesterday, but worse than admission. He is down to 50 L high flow O2 at 40% and his saturations are in the upper 80s to low 90s. He continues to use his incentive spirometer and he has been lying on his stomach more proning. This seems to have made a difference in his oxygenation. * Chest x-ray clearly worsened. This concerns me not just for worsening Covid pneumonia, but for healthcare associated pneumonia. * White blood cell count is increasing at 8.4, which is normal, absolute neutrophils are high at 7.52, and there is 1+ toxic granulation. * This appears to be worsening pneumonia and possibly bacterial component. He is having a better oxygenation and transfer to the ICU appears to have really affected him emotionally. Patient had a close friend that in our ICU at the beginning of the Covid pandemic and this is likely worrying him greatly. Impression: * HFNC, 50/55-->NC, 6l /m-->3 to4 l/m; hypoxemia/unable to titrate off. * Atypical/Viral, Covid-19 PNA; No HCAP: Levaquin, Zosyn, and vanco mycin--stopped 02/28/2020. * Query HCAP; CXR unchanged * Appetite has improved * GFR >/= 60. * Completed remdesivir, 2 units convalescent plasma, 5 days Rocephin, 3 days of azithromycin. * Competed dexamethasone. * Labile affect-improved * CXR, mildly improved; no significant pulmonary edema Plan: * Aspirin 81 mg daily * Restart Vancomycin/levoquin * ->>Chest CTA cf Chest CT with contrast re: hypoxia as needed. * Lovenox to 40 mg subcutaneously daily * Continue to try to wean oxygen as tolerated * Routine labs in the morning * FiO2 to keep SPO2 between 88 and 94% * Titrate O2 off as tolerated. * Encourage better nutrition intake. * CODE STATUS full code * Length of stay greater than 96 hours due to treatment of Covid pneumonia. * DC, 24-48 hours.
[2020-03-05] MEDS: Vancomycin 1 GM, Vancomycin 250 MG in Sodium Chloride 0.9% 250 ML IV SCH (20:38)
[2020-03-06] MEDS: Saccharomyces Boulardii (Probiotic) 250 MG Cap PO SCH ×2 (08:18→23:11)
[2020-03-06] MEDS: Aspirin 81 MG Tab.Chew PO SCH (08:18)
[2020-03-06] MEDS: Enoxaparin 40 MG/0.4 ML Syringe SUBCUT SCH (08:20)
[2020-03-06] MEDS: Vancomycin 1 GM, Vancomycin 250 MG in Sodium Chloride 0.9% 250 ML IV SCH (08:21)
[2020-03-06] MEDS: Levofloxacin/Dextrose 5%-Water 750 MG in Premix Bag 1 BAG IV SCH (10:04)
--- NOTE | 2020-03-06 12:11 | CR ---
PROCEDURE INFORMATION: Exam: XR Chest, 1 View Exam date and time: 03/06/2020 10:08 AM Age: 75 years old Clinical indication: Condition or disease; Other: Pneumonia; Additional info: Hypoxia TECHNIQUE: Imaging protocol: XR of the chest Views: 1 view. COMPARISON: CR Chest 1V Frontal 03/05/2020 7:40 AM FINDINGS: Lungs: The lung volumes are decreased with vascular crowding secondary to elevation of the diaphragms which is likely on the basis of poor inspiratory effort. Diffuse ground-glass airspace disease throughout the lung mondragon bilaterally appears unchanged since the prior examination. Pleural space: Unremarkable. No pleural effusion. No pneumothorax. Heart/Mediastinum: Trachea is deviated to the right. Heart size stable Bones/joints: Unremarkable. IMPRESSION: Diffuse ground-glass airspace disease throughout the lung mondragon bilaterally appears unchanged since the prior examination. Thank you for allowing us to participate in the care of your patient. Dictated and Authenticated by: Saurabh Nicole MD 03/06/2020 12:36 PM Central Time ([place] & [place]) [place]
[2020-03-06] MEDS ORDERED: Iopamidol 755 Mg/ML 100 ML Bottle IVPUSH ONE (12:51)
[2020-03-06] MEDS ORDERED: Sodium Chloride 0.9% 10 ML Syringe FLUSH ONE (12:51)
[2020-03-06] MEDS ORDERED: Sodium Chloride 0.9% 100 ML IV SCH (13:00)
--- NOTE | 2020-03-06 13:32 | CT ---
PROCEDURE INFORMATION: Exam: CT Angiography Chest With Contrast Exam date and time: 03/06/2020 11:41 AM Age: 75 years old Clinical indication: Dyspnea; Patient HX: Worsening hypoxemia TECHNIQUE: Imaging protocol: Computed tomographic angiography of the chest with intravenous contrast. 3D rendering (Not supervised by radiologist): MIP and/or 3D reconstructed images were created by the technologist. Radiation optimization: All CT scans at this facility use at least one of these dose optimization techniques: automated exposure control; mA and/or kV adjustment per patient size (includes targeted exams where dose is matched to clinical indication); or iterative reconstruction. Contrast material: ISOVUE 370; Contrast volume: 100 ml; Contrast route: INTRAVENOUS (IV); COMPARISON: CR Chest 1V Frontal 03/06/2020 10:08 AM FINDINGS: Pulmonary arteries: No evidence of pulmonary embolism. Aorta: No evidence of aortic dissection. The vasculature demonstrates diffuse mild atherosclerotic calcification. Lungs: Diffuse and extensive patchy airspace opacities noted throughout the lungs bilaterally. Pleural space: There is no evidence of pneumothorax. Heart: The heart demonstrates mild diffuse enlargement. There is mild atherosclerotic calcification of the coronary arteries. Lymph nodes: Mediastinal lymphadenopathy is present measuring up to 1.4 cm. Diaphragm: There is nonspecific elevation of the right hemidiaphragm. Kidneys and ureters: 5.9 cm right renal cyst is incidentally noted. Bones/joints: The thoracic spine demonstrates mild degenerative changes at multiple levels. Soft tissues: Unremarkable. IMPRESSION: 1. Diffuse and extensive patchy airspace opacities noted throughout the lungs bilaterally. Findings consistent with edema, viral or atypical pneumonia. Other etiologies are not excluded. 2. No evidence of pulmonary embolism. 3. No evidence of aortic dissection. 4. Mediastinal lymphadenopathy is present measuring up to 1.4 cm. COMMENTS: Consistent with the [employer]'s Incidental Findings Committee white paper (JAm Tarah Radiol 2018): Any incidental renal lesion less than 1 cm or classified as too small to characterize, or any incidental cystic renal lesion characterized as simple-appearing, is likely benign. No follow-up imaging is recommended for these lesions per consensus recommendations based on imaging criteria. Thank you for allowing us to participate in the care of your patient. Dictated and Authenticated by: Puneet Herzog DO 03/06/2020 2:19 PM Central Time ([place] & [place]) [place]
--- NOTE | 2020-03-06 15:59 | PCM.PN ---
- General Info Date of Service: 03/06/20 Admission Dx/Problem (Free Text): Admission Diagnosis/Problem Admission Diagnosis/Problem Hypoxia Subjective Update: Patient is requiring increasing amount of oxygen today. He is gone from 3 L to 6 L. Appetite is generally good. He was started on Levaquin and vancomycin yesterday. - Review of Systems General: Reports: No Symptoms HEENT: Reports: No Symptoms Pulmonary: Reports: Shortness of Breath, Cough Cardiovascular: Reports: No Symptoms Gastrointestinal: Reports: No Symptoms Musculoskeletal: Reports: No Symptoms Neurological: Reports: No Symptoms Psychiatric: Reports: No Symptoms - Patient Data Vitals - Most Recent: Last Vital Signs Temp 99.0 F 03/06/20 12:21 Pulse 88 03/06/20 12:23 Resp 32 H 03/06/20 12:21 BP 124/73 03/06/20 12:21 Pulse Ox 83 L 03/06/20 12:23 Weight - Most Recent: 227 lb I&O - Last 24 Hours: Intake & Output 03/06/20 03/06/20 03/06/20 06:59 14:59 22:59 Intake Total 750 340 Balance 750 340 Imaging Impressions - Last 24 Hours: Chest x-ray: Diffuse groundglass airspace disease throughout the lung mondragon bilaterally appears unchanged since the prior examination. CTA of the chest: 1. Diffuse and extensive patchy airspace opacities noted throughout the lungs bilaterally. Findings consistent with edema, viral or a typical pneumonia. Other etiologies are not excluded. 2. No evidence of pulmonary embolism. 3. No evidence of aortic dissection. 4. Mediastinal lymphadenopathy is present measuring up to 1.4 cm. 5.9 cm right renal cyst is incidentally noted. Lab Results Last 24 Hours: Laboratory Results - last 24 hr 03/06/20 03/06/20 03/06/20 Range/Units 05:12 05:12 05:12 WBC 5.74 (4.23-9.07) K/mm3 RBC 4.04 L (4.63-6.08) M/mm3 Hgb 12.4 L (13.7-17.5) gm/dl Hct 38.7 L (40.1-51.0) % MCV 95.8 H (79.0-92.2) fl MCH 30.7 (25.7-32.2) pg MCHC 32.0 L (32.2-35.5) g/dl RDW Std Deviation 44.7 H (35.1-43.9) fL Plt Count 177 (163-337) K/mm3 MPV 10.0 (9.4-12.3) fl Neut % (Auto) 70.6 H (34.0-67.9) % Lymph % (Auto) 13.4 L (21.8-53.1) % [place] % (Auto) 13.4 H (5.3-12.2) % Eos % (Auto) 2.1 (0.8-7.0) Baso % (Auto) 0.3 (0.1-1.2) % Neut # (Auto) 4.05 (1.78-5.38) K/mm3 Lymph # (Auto) 0.77 L (1.32-3.57) K/mm3 [place] # (Auto) 0.77 (0.30-0.82) K/mm3 Eos # (Auto) 0.12 (0.04-0.54) K/mm3 Baso # (Auto) 0.02 (0.01-0.08) K/mm3 D-Dimer, Quantitative 0.53 H (0.19-0.50) mg/L Sodium 140 (136-145) mEq/L Potassium 3.7 (3.5-5.1) mEq/L Chloride 105 (98-107) mEq/L Carbon Dioxide 27 (21-32) mEq/L Anion Gap 11.7 (5-15) BUN 13 (7-18) mg/dL Creatinine 1.0 (0.7-1.3) mg/dL Est Cr Clr Drug Dosing 62.70 mL/min Estimated GFR (MDRD) > 60 (>60) mL/min BUN/Creatinine Ratio 13.0 L (14-18) Glucose 120 H (83-115) mg/dL Lactic Acid (0.4-2.0) mmol/L Calcium 8.0 L (8.5-10.1) mg/dL C-Reactive Protein 6.7 H* (<1.0) mg/dL 03/06/20 Range/Units 05:12 WBC (4.23-9.07) K/mm3 RBC (4.63-6.08) M/mm3 Hgb (13.7-17.5) gm/dl Hct (40.1-51.0) % MCV (79.0-92.2) fl MCH (25.7-32.2) pg MCHC (32.2-35.5) g/dl RDW Std Deviation (35.1-43.9) fL Plt Count (163-337) K/mm3 MPV (9.4-12.3) fl Neut % (Auto) (34.0-67.9) % Lymph % (Auto) (21.8-53.1) % [place] % (Auto) (5.3-12.2) % Eos % (Auto) (0.8-7.0) Baso % (Auto) (0.1-1.2) % Neut # (Auto) (1.78-5.38) K/mm3 Lymph # (Auto) (1.32-3.57) K/mm3 [place] # (Auto) (0.30-0.82) K/mm3 Eos # (Auto) (0.04-0.54) K/mm3 Baso # (Auto) (0.01-0.08) K/mm3 D-Dimer, Quantitative (0.19-0.50) mg/L Sodium (136-145) mEq/L Potassium (3.5-5.1) mEq/L Chloride (98-107) mEq/L Carbon Dioxide (21-32) mEq/L Anion Gap (5-15) BUN (7-18) mg/dL Creatinine (0.7-1.3) mg/dL Est Cr Clr Drug Dosing mL/min Estimated GFR (MDRD) (>60) mL/min BUN/Creatinine Ratio (14-18) Glucose (83-115) mg/dL Lactic Acid 1.1 (0.4-2.0) mmol/L Calcium (8.5-10.1) mg/dL C-Reactive Protein (<1.0) mg/dL Med Orders - Current: Current Medications Acetaminophen (Tylenol) 650 mg PO Q4H PRN PRN Reason: Pain (Mild 1-3)/fever Last Admin: 02/19/20 22:05 Dose: 650 mg Documented by: Al Hydroxide/Mg Hydroxide (Mag-Al Plus) 30 ml PO Q4H PRN PRN Reason: heart burn Last Admin: 11/09/20 17:51 Dose: 30 ml Documented by: Albuterol (Proventil Hfa) 0 gm INH Q4H PRN PRN Reason: Shortness of Breath Last Admin: 03/05/20 20:43 Dose: 2 puff Documented by: Aspirin (Aspirin) 81 mg PO DAILY [facility] Last Admin: 03/06/20 08:18 Dose: 81 mg Documented by: Enoxaparin Sodium (Lovenox) 40 mg SUBCUT DAILY ANGY Furosemide (Lasix) 20 mg IVPUSH NOW ONE Stop: 03/06/20 15:59 Vancomycin HCl 1 gm/Vancomycin HCl 250 mg/ Sodium Chloride 250 mls @ 166.667 mls/hr IV Q12H [facility] Last Admin: 03/06/20 08:21 Dose: 166.667 mls/hr Documented by: Sodium Chloride (Normal Saline) 100 mls @ 60 mls/hr IV ASDIRECTED [facility] Last Admin: 03/06/20 12:00 Dose: 60 mls/hr Documented by: Levofloxacin (Levaquin) 750 mg PO Q24H ANGY Lorazepam (Ativan) 0.5 mg PO Q4H PRN PRN Reason: Anxiety Last Admin: 02/28/20 12:19 Dose: 0.5 mg Documented by: Ondansetron HCl (Zofran) 4 mg IV Q4H PRN PRN Reason: Nausea/Vomiting Saccharomyces Boulardii (Florastor) 500 mg PO BID [facility] Last Admin: 03/06/20 08:18 Dose: 500 mg Documented by: Sodium Chloride (Saline Flush) 10 ml FLUSH ASDIRECTED PRN PRN Reason: Keep Vein Open Vancomycin HCl (Pharmacy To Dose - Vancomycin) 1 dose .XX ASDIRECTED [facility] Discontinued Medications Aspirin (Aspirin) 81 mg PO BEDTIME [facility] Last Admin: 02/20/20 20:20 Dose: 81 mg Documented by: Aspirin (Aspirin) 81 mg PO BEDTIME ANGY Dexamethasone (Dexamethasone) 6 mg PO Q24H ANGY Stop: 02/28/20 21:01 Last Admin: 02/28/20 20:47 Dose: 6 mg Documented by: Enoxaparin Sodium (Lovenox) 40 mg SUBCUT Q12H [facility] Last Admin: 03/06/20 08:20 Dose: 40 mg Documented by: Remdesivir 200 mg/ Sodium (Chloride) 250 mls @ 250 mls/hr IV ONETIME ONE Stop: 02/19/20 21:59 Last Admin: 02/19/20 22:02 Dose: 250 mls/hr Documented by: Remdesivir 100 mg/ Sodium (Chloride) 100 mls @ 100 mls/hr IV Q24H [facility] Stop: 02/23/20 21:59 Last Admin: 02/23/20 21:04 Dose: 100 mls/hr Documented by: Sodium Chloride (Normal Saline) 100 mls @ 25 mls/hr IV ASDIRECTED [facility] Last Admin: 02/19/20 23:46 Dose: 25 mls/hr Documented by: Azithromycin 500 mg/ Sodium (Chloride) 250 mls @ 250 mls/hr IV Q24H [facility] Stop: 02/22/20 22:59 Last Admin: 02/22/20 22:20 Dose: 250 mls/hr Documented by: Ceftriaxone Sodium 2 gm/ (Sodium Chloride) 100 mls @ 200 mls/hr IV Q24H [facility] Stop: 02/24/20 22:29 Last Admin: 02/24/20 21:26 Dose: 200 mls/hr Documented by: Piperacillin Sod/Tazobactam (Sod 4.5 gm/ Sodium Chloride) 100 mls @ 200 mls/hr IV ONETIME ONE Stop: 02/26/20 10:29 Last Admin: 02/26/20 09:58 Dose: 200 mls/hr Documented by: Piperacillin Sod/Tazobactam (Sod 4.5 gm/ Sodium Chloride) 100 mls @ 25 mls/hr IV Q8H [facility] Last Admin: 02/27/20 02:59 Dose: 25 mls/hr Documented by: Vancomycin HCl 1.75 gm/ Sodium (Chloride) 500 mls @ 250 mls/hr IV ONETIME ONE Stop: 02/26/20 12:29 Last Admin: 02/26/20 11:48 Dose: 250 mls/hr Documented by: Vancomycin HCl 1 gm/Vancomycin HCl 250 mg/ Sodium Chloride 250 mls @ 166.667 mls/hr IV Q12H [facility] Last Admin: 02/26/20 22:51 Dose: 166.667 mls/hr Documented by: Vancomycin HCl 1.75 gm/ Sodium (Chloride) 500 mls @ 250 mls/hr IV ONETIME ONE Stop: 03/05/20 10:59 Last Admin: 03/05/20 08:55 Dose: 250 mls/hr Documented by: Levofloxacin/Dextrose 750 mg/ (Premix) 150 mls @ 100 mls/hr IV Q24H [facility] Last Admin: 03/06/20 10:04 Dose: 100 mls/hr Documented by: Iopamidol (Isovue-370 (76%)) 100 ml IVPUSH ONETIME ONE Stop: 03/06/20 12:52 Last Admin: 03/06/20 12:00 Dose: 100 ml Documented by: Levofloxacin (Levaquin) 750 mg PO Q24H [facility] Last Admin: 02/26/20 09:57 Dose: 750 mg Documented by: Magnesium Hydroxide (Milk Of Magnesia) 30 ml PO ONETIME ONE Stop: 02/27/20 09:01 Last Admin: 02/27/20 08:38 Dose: 30 ml Documented by: Sodium Chloride (Saline Flush) 10 ml FLUSH ONETIME ONE Stop: 03/06/20 12:52 Last Admin: 03/06/20 12:00 Dose: 10 ml Documented by: Vancomycin HCl (Pharmacy To Dose - Vancomycin) 1 dose .XX ASDIRECTED PRN PRN Reason: RX TO DOSE VANCO Vancomycin HCl (Vancomycin) Confirm Administered Dose 2 gm .ROUTE .STK-MED ONE Stop: 03/05/20 08:46 Last Admin: 03/05/20 08:57 Dose: 1 gm Documented by: - Exam Quality Assessment: Supplemental Oxygen (Nasal cannula) General: Alert, Oriented HEENT: Pupils Equal, Mucous Membr. Moist/[place] Neck: Supple Lungs: Rales (Scattered throughout). No: Normal Respiratory Effort (Increased respiratory rate and effort) Cardiovascular: Regular Rate, Regular Rhythm GI/Abdominal Exam: Normal Bowel Sounds, Soft, Non-Tender, No Distention Extremities: Normal Inspection, Normal Range of Motion, Non-Tender, No Pedal Edema, Normal Capillary Refill Skin: Warm, Dry, Intact Psy/Mental Status: Alert, Normal Affect, Normal Mood Sepsis Event Note - Evaluation Sepsis Screening Result: No Definite Risk - Focused Exam Vital Signs: Vital Signs Temp Pulse Resp BP Pulse Ox Pulse Ox 03/06/20 12:23 88 83 L 03/06/20 12:21 99.0 F 32 H 124/73 03/06/20 08:15 99.0 F 81 20 116/62 86 L 03/06/20 06:04 91 L 03/06/20 05:34 98.1 F 81 20 105/68 88 L - Problem List & Annotations (1) Pneumonia due to COVID-19 virus SNOMED Code(s): 861313917703960965 Code(s): U07.1 - COVID-19; J12.89 - OTHER VIRAL PNEUMONIA Status: Acute Current Visit: Yes (2) Respiratory distress SNOMED Code(s): 662256748 Code(s): R06.03 - ACUTE RESPIRATORY DISTRESS Status: Acute Current Visit: Yes (3) Hypoalbuminemia SNOMED Code(s): 594878579 Code(s): E88.09 - [facility] DISORDERS OF PLASMA-PROTEIN METABOLISM, NEC Status: Acute Current Visit: Yes - Problem List Review Problem List Initiated/Reviewed/Updated: Yes - My Orders Last 24 Hours: My Active Orders 03/06/20 05:12 PROCALCITONIN [REF] Routine 03/06/20 13:00 Sodium Chloride 0.9% [Normal Saline] 100 ml IV ASDIRECTED 03/06/20 15:58 Furosemide [Lasix] 20 mg IVPUSH NOW ONE 03/06/20 20:00 VANCOMYCIN TROUGH [CHEM] Timed 03/07/20 09:00 Enoxaparin [Lovenox] 40 mg SUBCUT DAILY levoFLOXacin [Levaquin] 750 mg PO Q24H - Plan Plan:: Impression: * HFNC, 50/55-->NC, 6l /m-->3 to4 l/m--> 6 L/min: Hypoxemia/unable to titrate off. * CT of the chest consistent with possible edema, atypical pneumonia. * Atypical/Viral, Covid-19 PNA; No HCAP: Levaquin, Zosyn, and vancomycin--stopped 02/28/2020.Restarted 03/05/2020 * Query HCAP; CXR unchanged * Appetite has improved * GFR >/= 60. * Completed remdesivir, 2 units convalescent plasma, 5 days Rocephin, 3 days of azithromycin. * Competed dexamethasone. * Labile affect-improved * Trachea is deviated to the right on recent x-rays that seems to be new since admission. Plan: * Aspirin 81 mg daily * Restart Vancomycin/levoquin * Review CT scan with the radiologist tomorrow to see if the reason for the tracheal deviation is apparent on CT. * Procalcitonin * proBNP in the morning * Lasix 20 mg IV x1 * Lovenox to 40 mg subcutaneously daily * Continue to try to wean oxygen as tolerated * Routine labs in the morning * FiO2 to keep SPO2 between 88 and 94% * Encourage better nutrition intake. * CODE STATUS full code * Length of stay greater than 96 hours due to treatment of Covid pneumonia. * DC when able to get oxygen stabilized on 2 L nasal cannula for more than 24 hours.
[2020-03-06] MEDS ORDERED: Furosemide 20 MG/2 ML VIAL IVPUSH ONE (16:05)
[2020-03-06] MEDS: Albuterol 6.7 GM Inhaler INH PRN (21:18)
[2020-03-07] MEDS: Albuterol 6.7 GM Inhaler INH PRN ×2 (05:59→21:06)
[2020-03-07] MEDS: Levofloxacin 750 MG Tab PO SCH (08:39)
[2020-03-07] MEDS: Enoxaparin 40 MG/0.4 ML Syringe SUBCUT SCH (08:39)
[2020-03-07] MEDS: Saccharomyces Boulardii (Probiotic) 250 MG Cap PO SCH ×2 (08:39→22:14)
[2020-03-07] MEDS: Aspirin 81 MG Tab.Chew PO SCH (08:40)
[2020-03-07] MEDS ORDERED: Furosemide 20 MG/2 ML VIAL IVPUSH ONE (14:00)
--- NOTE | 2020-03-07 14:10 | PCM.PN ---
- General Info Date of Service: 03/07/20 Admission Dx/Problem (Free Text): Admission Diagnosis/Problem Admission Diagnosis/Problem Hypoxia Subjective Update: Kanu required going back on high flow nasal cannula last night. He is currently on 60 L at 90% FiO2. He did have good diuresis with the 20 mg of Lasix. Appetite is improved this morning. Patient is in good spirits. I spoke with him about transfer to a tertiary care facility and he is in agreement. I tried to transfer him to transfer him to [facility] in [place] and [facility] in [place] but there were no ICU beds. I also spoke with [facility] in [place] who advised me that there were no ICU beds available anywhere in the [facility] and surrounding states. They also stated that there was nothing different they could do for him and recommended diuresis and evaluation for opportunistic infections. Functional Status: Reports: Pain Controlled - Review of Systems General: Reports: Fatigue HEENT: Reports: No Symptoms Pulmonary: Reports: Shortness of Breath, Cough, Hemoptysis (Small amount of bloody sputum today) Cardiovascular: Reports: No Symptoms Gastrointestinal: Reports: No Symptoms Musculoskeletal: Reports: No Symptoms Skin: Reports: No Symptoms Neurological: Reports: No Symptoms Psychiatric: Reports: No Symptoms - Patient Data Vitals - Most Recent: Last Vital Signs Temp 99.3 F 03/07/20 11:41 Pulse 83 03/07/20 11:41 Resp 24 H 03/07/20 11:41 BP 97/69 03/07/20 11:41 Pulse Ox 97 03/07/20 11:41 Weight - Most Recent: 221 lb 11.2 oz I&O - Last 24 Hours: Intake & Output 03/06/20 03/07/20 03/07/20 22:59 06:59 14:59 Intake Total 1150 900 180 Output Total 1000 1775 Balance 150 -875 180 Lab Results Last 24 Hours: Laboratory Results - last 24 hr 03/06/20 03/06/20 03/07/20 Range/Units 05:12 20:00 05:09 WBC 5.98 (4.23-9.07) K/mm3 RBC 4.13 L (4.63-6.08) M/mm3 Hgb 12.4 L (13.7-17.5) gm/dl Hct 39.5 L (40.1-51.0) % MCV 95.6 H (79.0-92.2) fl MCH 30.0 (25.7-32.2) pg MCHC 31.4 L (32.2-35.5) g/dl RDW Std Deviation 45.0 H (35.1-43.9) fL Plt Count 200 (163-337) K/mm3 MPV 10.1 (9.4-12.3) fl Neut % (Auto) 70.2 H (34.0-67.9) % Lymph % (Auto) 14.7 L (21.8-53.1) % Pope % (Auto) 12.5 H (5.3-12.2) % Eos % (Auto) 1.8 (0.8-7.0) Baso % (Auto) 0.5 (0.1-1.2) % Neut # (Auto) 4.19 (1.78-5.38) K/mm3 Lymph # (Auto) 0.88 L (1.32-3.57) K/mm3 Pope # (Auto) 0.75 (0.30-0.82) K/mm3 Eos # (Auto) 0.11 (0.04-0.54) K/mm3 Baso # (Auto) 0.03 (0.01-0.08) K/mm3 Sodium (136-145) mEq/L Potassium (3.5-5.1) mEq/L Chloride (98-107) mEq/L Carbon Dioxide (21-32) mEq/L Anion Gap (5-15) BUN (7-18) mg/dL Creatinine (0.7-1.3) mg/dL Est Cr Clr Drug Dosing mL/min Estimated GFR (MDRD) (>60) mL/min BUN/Creatinine Ratio (14-18) Glucose (83-115) mg/dL Lactic Acid (0.4-2.0) mmol/L Calcium (8.5-10.1) mg/dL C-Reactive Protein (<1.0) mg/dL NT-Pro-B Natriuret Pep (0-125) pg/mL Procalcitonin <0.05 (<0.10) ng/mL Vancomycin Trough 11.0 (10.0-20.0) 03/07/20 03/07/20 03/07/20 Range/Units 05:09 05:09 05:09 WBC (4.23-9.07) K/mm3 RBC (4.63-6.08) M/mm3 Hgb (13.7-17.5) gm/dl Hct (40.1-51.0) % MCV (79.0-92.2) fl MCH (25.7-32.2) pg MCHC (32.2-35.5) g/dl RDW Std Deviation (35.1-43.9) fL Plt Count (163-337) K/mm3 MPV (9.4-12.3) fl Neut % (Auto) (34.0-67.9) % Lymph % (Auto) (21.8-53.1) % Pope % (Auto) (5.3-12.2) % Eos % (Auto) (0.8-7.0) Baso % (Auto) (0.1-1.2) % Neut # (Auto) (1.78-5.38) K/mm3 Lymph # (Auto) (1.32-3.57) K/mm3 Pope # (Auto) (0.30-0.82) K/mm3 Eos # (Auto) (0.04-0.54) K/mm3 Baso # (Auto) (0.01-0.08) K/mm3 Sodium 137 (136-145) mEq/L Potassium 3.8 (3.5-5.1) mEq/L Chloride 102 (98-107) mEq/L Carbon Dioxide 25 (21-32) mEq/L Anion Gap 13.8 (5-15) BUN 12 (7-18) mg/dL Creatinine 0.9 (0.7-1.3) mg/dL Est Cr Clr Drug Dosing 69.67 mL/min Estimated GFR (MDRD) > 60 (>60) mL/min BUN/Creatinine Ratio 13.3 L (14-18) Glucose 96 (83-115) mg/dL Lactic Acid 0.8 (0.4-2.0) mmol/L Calcium 8.5 (8.5-10.1) mg/dL C-Reactive Protein 14.0 H* (<1.0) mg/dL NT-Pro-B Natriuret Pep 169 H (0-125) pg/mL Procalcitonin (<0.10) ng/mL Vancomycin Trough (10.0-20.0) Med Orders - Current: Current Medications Acetaminophen (Tylenol) 650 mg PO Q4H PRN PRN Reason: Pain (Mild 1-3)/fever Last Admin: 02/19/20 22:05 Dose: 650 mg Documented by: Al Hydroxide/Mg Hydroxide (Mag-Al Plus) 30 ml PO Q4H PRN PRN Reason: heart burn Last Admin: 03/04/20 17:51 Dose: 30 ml Documented by: Albuterol (Proventil Hfa) 0 gm INH Q4H PRN PRN Reason: Shortness of Breath Last Admin: 03/07/20 05:59 Dose: 2 puff Documented by: Aspirin (Aspirin) 81 mg PO DAILY [facility] Last Admin: 03/07/20 08:40 Dose: 81 mg Documented by: Enoxaparin Sodium (Lovenox) 40 mg SUBCUT DAILY [facility] Last Admin: 03/07/20 08:39 Dose: 40 mg Documented by: Vancomycin HCl 1 gm/Vancomycin HCl 500 mg/ Sodium Chloride 500 mls @ 333.333 mls/hr IV Q12H [facility] Last Admin: 03/07/20 10:36 Dose: 333.333 mls/hr Documented by: Levofloxacin (Levaquin) 750 mg PO Q24H [facility] Last Admin: 03/07/20 08:39 Dose: 750 mg Documented by: Lorazepam (Ativan) 0.5 mg PO Q4H PRN PRN Reason: Anxiety Last Admin: 02/28/20 12:19 Dose: 0.5 mg Documented by: Ondansetron HCl (Zofran) 4 mg IV Q4H PRN PRN Reason: Nausea/Vomiting Saccharomyces Boulardii (Florastor) 500 mg PO BID [facility] Last Admin: 03/07/20 08:39 Dose: 500 mg Documented by: Sodium Chloride (Saline Flush) 10 ml FLUSH ASDIRECTED PRN PRN Reason: Keep Vein Open Tamsulosin HCl (Flomax) 0.4 mg PO BEDTIME [facility] Vancomycin HCl (Pharmacy To Dose - Vancomycin) 1 dose .XX ASDIRECTED [facility] Discontinued Medications Aspirin (Aspirin) 81 mg PO BEDTIME [facility] Last Admin: 02/20/20 20:20 Dose: 81 mg Documented by: Aspirin (Aspirin) 81 mg PO BEDTIME ANGY Dexamethasone (Dexamethasone) 6 mg PO Q24H [facility] Stop: 02/28/20 21:01 Last Admin: 02/28/20 20:47 Dose: 6 mg Documented by: Enoxaparin Sodium (Lovenox) 40 mg SUBCUT Q12H [facility] Last Admin: 03/06/20 08:20 Dose: 40 mg Documented by: Furosemide (Lasix) 20 mg IVPUSH NOW ONE Stop: 03/06/20 16:06 Last Admin: 03/06/20 16:09 Dose: 20 mg Documented by: Furosemide (Lasix) 20 mg IVPUSH NOW ONE Stop: 03/07/20 14:01 Last Admin: 03/07/20 13:57 Dose: 20 mg Documented by: Remdesivir 200 mg/ Sodium (Chloride) 250 mls @ 250 mls/hr IV ONETIME ONE Stop: 02/19/20 21:59 Last Admin: 02/19/20 22:02 Dose: 250 mls/hr Documented by: Remdesivir 100 mg/ Sodium (Chloride) 100 mls @ 100 mls/hr IV Q24H [facility] Stop: 02/23/20 21:59 Last Admin: 02/23/20 21:04 Dose: 100 mls/hr Documented by: Sodium Chloride (Normal Saline) 100 mls @ 25 mls/hr IV ASDIRECTED [facility] Last Admin: 02/19/20 23:46 Dose: 25 mls/hr Documented by: Azithromycin 500 mg/ Sodium (Chloride) 250 mls @ 250 mls/hr IV Q24H [facility] Stop: 02/22/20 22:59 Last Admin: 02/22/20 22:20 Dose: 250 mls/hr Documented by: Ceftriaxone Sodium 2 gm/ (Sodium Chloride) 100 mls @ 200 mls/hr IV Q24H [facility] Stop: 02/24/20 22:29 Last Admin: 02/24/20 21:26 Dose: 200 mls/hr Documented by: Piperacillin Sod/Tazobactam (Sod 4.5 gm/ Sodium Chloride) 100 mls @ 200 mls/hr IV ONETIME ONE Stop: 02/26/20 10:29 Last Admin: 02/26/20 09:58 Dose: 200 mls/hr Documented by: Piperacillin Sod/Tazobactam (Sod 4.5 gm/ Sodium Chloride) 100 mls @ 25 mls/hr IV Q8H [facility] Last Admin: 02/27/20 02:59 Dose: 25 mls/hr Documented by: Vancomycin HCl 1.75 gm/ Sodium (Chloride) 500 mls @ 250 mls/hr IV ONETIME ONE Stop: 02/26/20 12:29 Last Admin: 02/26/20 11:48 Dose: 250 mls/hr Documented by: Vancomycin HCl 1 gm/Vancomycin HCl 250 mg/ Sodium Chloride 250 mls @ 166.667 mls/hr IV Q12H [facility] Last Admin: 02/26/20 22:51 Dose: 166.667 mls/hr Documented by: Vancomycin HCl 1.75 gm/ Sodium (Chloride) 500 mls @ 250 mls/hr IV ONETIME ONE Stop: 03/05/20 10:59 Last Admin: 03/05/20 08:55 Dose: 250 mls/hr Documented by: Levofloxacin/Dextrose 750 mg/ (Premix) 150 mls @ 100 mls/hr IV Q24H [facility] Last Admin: 03/06/20 10:04 Dose: 100 mls/hr Documented by: Vancomycin HCl 1 gm/Vancomycin HCl 250 mg/ Sodium Chloride 250 mls @ 166.667 mls/hr IV Q12H [facility] Last Admin: 03/06/20 08:21 Dose: 166.667 mls/hr Documented by: Sodium Chloride (Normal Saline) 100 mls @ 60 mls/hr IV ASDIRECTED [facility] Last Admin: 03/06/20 12:00 Dose: 60 mls/hr Documented by: Vancomycin HCl 1 gm/Vancomycin HCl 500 mg/ Sodium Chloride 500 mls @ 333.333 mls/hr IV Q12H [facility] Last Admin: 03/06/20 23:09 Dose: Not Given Documented by: Iopamidol (Isovue-370 (76%)) 100 ml IVPUSH ONETIME ONE Stop: 03/06/20 12:52 Last Admin: 03/06/20 12:00 Dose: 100 ml Documented by: Levofloxacin (Levaquin) 750 mg PO Q24H [facility] Last Admin: 02/26/20 09:57 Dose: 750 mg Documented by: Magnesium Hydroxide (Milk Of Magnesia) 30 ml PO ONETIME ONE Stop: 02/27/20 09:01 Last Admin: 02/27/20 08:38 Dose: 30 ml Documented by: Sodium Chloride (Saline Flush) 10 ml FLUSH ONETIME ONE Stop: 03/06/20 12:52 Last Admin: 03/06/20 12:00 Dose: 10 ml Documented by: Vancomycin HCl (Pharmacy To Dose - Vancomycin) 1 dose .XX ASDIRECTED PRN PRN Reason: RX TO DOSE VANCO Vancomycin HCl (Vancomycin) Confirm Administered Dose 2 gm .ROUTE .STK-MED ONE Stop: 03/05/20 08:46 Last Admin: 03/05/20 08:57 Dose: 1 gm Documented by: - Exam Quality Assessment: Supplemental Oxygen (High flow nasal cannula) General: Alert, Oriented HEENT: Pupils Equal, Mucous Membr. Moist/[place] Neck: Supple Lungs: Rales (Scattered throughout worse bibasilar). No: Normal Respiratory Effort (Increased respiratory rate and effort) Cardiovascular: Regular Rate, Regular Rhythm GI/Abdominal Exam: Normal Bowel Sounds, Soft, Guarding Extremities: Normal Inspection, Normal Range of Motion, Non-Tender, No Pedal Edema, Normal Capillary Refill Skin: Warm, Dry, Intact Psy/Mental Status: Alert, Normal Affect, Normal Mood Sepsis Event Note - Evaluation Sepsis Screening Result: No Definite Risk - Focused Exam Vital Signs: Vital Signs Temp Pulse Resp BP Pulse Ox Pulse Ox 03/07/20 11:41 99.3 F 83 24 H 97/69 97 03/07/20 08:30 93 L 03/07/20 07:56 99.1 F 80 26 H 106/47 L 91 L 03/07/20 05:59 90 L 03/07/20 05:21 97.9 F 83 22 H 99/63 92 L - Problem List & Annotations (1) Pneumonia due to COVID-19 virus SNOMED Code(s): 026859038544816772 Code(s): U07.1 - COVID-19; J12.89 - OTHER VIRAL PNEUMONIA Status: Acute Current Visit: Yes (2) Respiratory distress SNOMED Code(s): 648270374 Code(s): R06.03 - ACUTE RESPIRATORY DISTRESS Status: Acute Current Visit: Yes (3) Hypoalbuminemia SNOMED Code(s): 266270979 Code(s): E88.09 - OTH DISORDERS OF PLASMA-PROTEIN METABOLISM, NEC Status: Acute Current Visit: Yes - Problem List Review Problem List Initiated/Reviewed/Updated: Yes - My Orders Last 24 Hours: My Active Orders 03/07/20 09:00 Enoxaparin [Lovenox] 40 mg SUBCUT DAILY levoFLOXacin [Levaquin] 750 mg PO Q24H 03/07/20 13:43 CULTURE FUNGUS [MREF] Routine CULTURE SPUTUM + SMEAR [RM] Routine FUNGAL SMEAR [MYC] Routine 03/07/20 13:55 RESPIRATORY PANEL Routine 03/07/20 14:07 MYCOPLASMA PNEUMONIAE IGM AB [CHEM] Routine 03/07/20 14:08 LEGIONELLA ANTIGEN [MREF] Routine STREP PNEUMONIAE ANTIGEN [MREF] Routine 03/07/20 21:00 Tamsulosin [Flomax] 0.4 mg PO BEDTIME 03/08/20 10:30 VANCOMYCIN TROUGH [CHEM] Timed - Plan Plan:: Impression: * Patient has worsened and is back on high flow nasal cannula * CT of the chest done 03/06/2020 was consistent with possible edema, atypical pneumonia. Discussed with radiology and it appears patient's deviation of his trachea secondary to atelectasis and volume loss causing shift of his trachea. * Atypical/Viral, Covid-19 PNA; No HCAP: Procalcitonin less than 0.05 with a normal white count. Pulmonology in [facility] does not recommend bronchoscopy and states we can send sputum for fungal culture. * Appetite has improved * GFR >/= 60. * Completed remdesivir, 2 units convalescent plasma, 5 days Rocephin, 3 days of azithromycin. * Competed dexamethasone. * I spoke with him about transfer to a tertiary care facility and he is in agreement. I tried to transfer him to transfer him to [facility] in [place] and [facility] in [place] but there were no ICU beds. I also spoke with [facility] in [place] who advised me that there were no ICU beds available anywhere in the [facility] and surrounding [facility]. They also stated that there was nothing different they could do for him and recommended diuresis and evaluation for opportunistic infections. Plan: * Aspirin 81 mg daily * DC vancomycin/levoquin * Review CT scan with the radiologist tomorrow to see if the reason for the tracheal deviation is apparent on CT. * Procalcitonin * Daily weights * Lasix 20 mg IV x1 * Lovenox to 40 mg subcutaneously daily * Continue to try to wean oxygen as tolerated * Respiratory panel, streptococcal antigen, Legionella antigen, sputum for fungal smear and culture, sputum culture. * FiO2 to keep SPO2 between 88 and 94% * Encourage better nutrition intake. * CODE STATUS full code * Length of stay greater than 96 hours due to treatment of Covid pneumonia. * Prognosis: Poor * With the worsening of his pulmonary status, chest x-ray, CT scan, and climbing CRP his prognosis has worsened.
[2020-03-07] MEDS: Aluminum Hydroxide/Magnesium Hydroxide/Simethicone Susp 30 ML Cup PO PRN (18:55)
[2020-03-07] MEDS ORDERED: Piperacillin/Tazobactam 4.5 GM in Sodium Chloride 0.9% 100 ML IV ONE (19:56)
[2020-03-07] MEDS ORDERED: Tamsulosin 0.4 MG Cap.ER PO SCH (21:00)
[2020-03-07] MEDS: Acetaminophen 325 MG Tab PO PRN (22:58)
[2020-03-08] MEDS ORDERED: Sodium Chloride 0.9% 250 ML IV ONE ×2 (02:00→03:39)
[2020-03-08] MEDS ORDERED: Magnesium Hydroxide 400 MG/5 ML Susp 30 ML Cup PO ONE (05:00)
[2020-03-08] MEDS: Piperacillin/Tazobactam 4.5 GM in Sodium Chloride 0.9% 100 ML IV SCH ×2 (05:11→12:55)
[2020-03-08] MEDS: Albuterol 6.7 GM Inhaler INH PRN (05:30)
[2020-03-08] MEDS: Saccharomyces Boulardii (Probiotic) 250 MG Cap PO SCH (09:22)
[2020-03-08] MEDS: Aspirin 81 MG Tab.Chew PO SCH (09:22)
[2020-03-08] MEDS: Levofloxacin 750 MG Tab PO SCH (09:22)
[2020-03-08] MEDS: Enoxaparin 40 MG/0.4 ML Syringe SUBCUT SCH (09:23)
[2020-03-08 12:15] VITALS: BP 107/61; PULSE 94
[2020-03-08] MEDS ORDERED: Vancomycin 1 GM SDV ONE (12:45)
--- NOTE | 2020-03-08 12:45 | PCM.DCSUM1 ---
Discharge Summary - Hospital Course HPI Initial Comments: 74-year-old male who presents from the clinic with shortness of breath, cough, and headache. Patient was diagnosed with Covid 6 days ago after having a mild upper respiratory infection for several days before. Today when the patient was doing some chores and taking out the trash he became more short of breath and presented to his primary care provider. At his primary care provider he was found to be hypoxemic requiring between 2 to 5 L of O2 via nasal cannula per minute to maintain saturation in the mid to low 90s. Patient was able to be weaned down at rest to 3 L and sent to the emergency department and then admitted to the floor. Labs done in the clinic showed white count of 4.3, hemoglobin 14.5, platelets of 137, D-dimer 0.45, and normal electrolytes, LDH of 351, ferritin 3439, proBNP of 162, and chest x-ray showing patchy bilateral opacities in the lower lobes bilaterally may represent multifocal pneumonia including COVID-19. Assessment * 74-year-old male with pneumonia secondary to COVID-19 directly admitted to the hospital after presenting to the clinic with cough, shortness of breath, fatigue, and hypoxemia. * Risk factors include older age, male sex, and obesity. He has had a history of hypertension in the past, but currently does not take his blood pressure medications. Plan * Admit to floor on telemetry and continuous pulse ox * Start remdesivir 200 mg now then 100 mg daily for a total of 5 days * Dexamethasone 6 mg every 24 hours for up to 10 days. * I spoke with him to provide information about convalescent plasma. I offered the "fax sheet for patients and parents/caregivers, for COVID-19 convalescent plasma to read and review. I stated that therapy has been approved by an emergency use authorization process and has not fully been FDA reviewed or approved. I shared potential risks from the therapy including transmission of blood borne pathogen such as HIV and hepatitis C, allergic and transfusion related reactions, post transfusion purpura. Additionally theoretical risks include a phenomenon called antibodydependent enhancement of infection such as is seen in dengue or attenuation of an immune response that may make patients more susceptible to reinfection. * He will receive 2 units convalescent plasma * Aspirin 81 mg daily * Lovenox 40 mg subcutaneously twice daily * CBC, CMP, mag, phosphorus in the morning * FiO2 to keep SPO2 between 88 and 94%. * CODE STATUS full code * Length of stay minimum of 5 days due to treatment with remdesivir. Diagnosis: Stroke: No - Discharge Data Discharge Date: 03/08/20 Discharge Disposition: DC/Tfer to Acute Hospital 02 Condition: Poor - Referral to Home Health Primary Care Physician: Alan Renee MD - Discharge Diagnosis/Problem(s) (1) Pneumonia due to COVID-19 virus SNOMED Code(s): 957864819299051259 ICD Code: U07.1 - COVID-19; J12.89 - OTHER VIRAL PNEUMONIA Status: Acute Current Visit: Yes (2) Respiratory distress SNOMED Code(s): 324040888 ICD Code: R06.03 - ACUTE RESPIRATORY DISTRESS Status: Acute Current Visit: Yes (3) Hypoalbuminemia SNOMED Code(s): 212382607 ICD Code: E88.09 - [facility] DISORDERS OF PLASMA-PROTEIN METABOLISM, NEC Status: Acute Current Visit: Yes - Patient Summary/Data Consults: Consultations 02/19/20 19:07 Respiratory Care Assess and Treatment [CONS] Routine Hospital Course: Patient was admitted on 3 L nasal cannula and started on remdesivir, dexamethasone, convalescent plasma, Lovenox, and aspirin. Patient progressively worsened and required high flow nasal cannula at 60 L and 90% O2. Patient had improvement in his inflammatory markers with D-dimer being normal and C-reactive protein dropping from 14.4 down to 2.8. He was weaned to nasal cannula at 2 to 3 L/min. Unfortunately, patient started to have worsening of symptoms 5 days ago and required being placed back on high flow nasal cannula. C-reactive protein increased to 19.1 and patient was placed on antibiotics for healthcare associated pneumonia. D-dimer has slowly increased to a maximum of 0.98. It has decreased recently to 0.53. Patient has increased work of breathing with a respiratory rate in the mid 20s and last night had 2 episodes of hypotension. Yesterday he was given Lasix 20 mg which appears to have caused his hypotension. He also had a fever last night of 101 and blood cultures, urine, and influenza was ordered. UA was negative and influenza was negative. Blood cultures are pending. Sputum Gram stain showed multiple organisms and likely from the oral mucosa. Because of the patient's prolonged course, he has been hospitalized for 18 days, worsening respiratory failure, and now hypotension it was determined to transfer patient to higher level of care. Patient tolerated BiPAP this morning for 30 minutes with settings of 14/8 on 50% FiO2 and it is felt that he will be stable for transfer on BiPAP via ground ambulance. - Discharge Plan *PRESCRIPTION DRUG MONITORING PROGRAM REVIEWED*: No *COPY OF PRESCRIPTION DRUG MONITORING REPORT IN PATIENT ADAMS: No Home Medications: Home Meds Aspirin 81 mg PO DAILY 06/19/16 [History] Fish Oil/[place]-3 Fatty Acids [Fish Oil 1,000 MG] 1,200 mg PO DAILY 06/19/16 [History] Glucosamine [Glucosamine Sulfate] 1,200 mg PO DAILY 06/19/16 [History] Multivitamins/Minerals [Vitamins and Minerals] 1 tab PO DAILY 06/19/16 [History] Iron 64 mg PO DAILY 06/22/16 [History] Calc/D3/Mag/Zn/[place] [Calcium 600 MG Plus Vit D] 600 mg PO BID 02/19/20 [History] Magnesium Oxide [Magnesium] 400 mg PO DAILY 02/19/20 [History] Milk Thistle 300 mg PO DAILY 02/19/20 [History] Vit A/Vit C/Vit E/Zinc/Copper [Preservision] 2 tab PO BID 02/19/20 [History] Vit D3 & K/[place] HCl/Hops [Ostera] 2,000 units PO DAILY 02/19/20 [History] Vit E/B1/B6/FA/B12/Ala/Coq10 [Folic-K Capsule] 400 intnl unit PO DAILY 02/19/20 [History] Losartan/Hydrochlorothiazide [Losartan-HCTZ 50-12.5 MG] 1 tab PO Q48H 02/20/20 [History] Oxygen Therapy Mode: BiPAP Patient Handouts: COVID-19 Frequently Asked Questions, Sepsis, Diagnosis, Adult, COVID-19: How to Protect Yourself and Others - CDC, Prevent the Spread of COVID-19 if You Are Sick - CDC Referrals: Alan Renee MD [Primary Care Provider] - - Discharge Summary/Plan Comment DC Time >30 min.: Yes Discharge Summary/Plan Comment: Discharged to [facility], accepting physician Dr. Horner, on BiPAP via ground ambulance. - General Info Date of Service: 03/08/20 Admission Dx/Problem (Free Text: Admission Diagnosis/Problem Admission Diagnosis/Problem Hypoxia Subjective Update: Short of breath. Appetite is still good. - Review of Systems General: Reports: Fatigue HEENT: Reports: No Symptoms Pulmonary: Reports: Shortness of Breath, Cough, Sputum Cardiovascular: Reports: No Symptoms Gastrointestinal: Reports: No Symptoms Musculoskeletal: Reports: No Symptoms Neurological: Reports: No Symptoms Psychiatric: Reports: No Symptoms - Patient Data Vitals - Most Recent: Last Vital Signs Temp 99.0 F 03/08/20 11:40 Pulse 94 03/08/20 11:40 Resp 24 H 03/08/20 08:51 BP 107/61 03/08/20 11:40 Pulse Ox 95 03/08/20 11:40 Weight - Most Recent: 222 lb I&O - Last 24 hours: Intake & Output 03/07/20 03/08/20 03/08/20 22:59 06:59 14:59 Intake Total 900 1450 Output Total 1100 Balance -200 1450 Lab Results - Last 24 hrs: Laboratory Results - last 24 hr 03/07/20 03/07/20 03/08/20 Range/Units 05:09 17:32 05:10 WBC 5.23 (4.23-9.07) K/mm3 RBC 3.68 L (4.63-6.08) M/mm3 Hgb 11.1 L (13.7-17.5) gm/dl Hct 35.2 L (40.1-51.0) % MCV 95.7 H (79.0-92.2) fl MCH 30.2 (25.7-32.2) pg MCHC 31.5 L (32.2-35.5) g/dl RDW Std Deviation 43.6 (35.1-43.9) fL Plt Count 159 L (163-337) K/mm3 MPV 9.8 (9.4-12.3) fl Neut % (Auto) 73.1 H (34.0-67.9) % Lymph % (Auto) 12.2 L (21.8-53.1) % [place] % (Auto) 12.2 (5.3-12.2) % Eos % (Auto) 2.1 (0.8-7.0) Baso % (Auto) 0.2 (0.1-1.2) % Neut # (Auto) 3.82 (1.78-5.38) K/mm3 Lymph # (Auto) 0.64 L (1.32-3.57) K/mm3 [place] # (Auto) 0.64 (0.30-0.82) K/mm3 Eos # (Auto) 0.11 (0.04-0.54) K/mm3 Baso # (Auto) 0.01 (0.01-0.08) K/mm3 Sodium (136-145) mEq/L Potassium (3.5-5.1) mEq/L Chloride (98-107) mEq/L Carbon Dioxide (21-32) mEq/L Anion Gap (5-15) BUN (7-18) mg/dL Creatinine (0.7-1.3) mg/dL Est Cr Clr Drug Dosing mL/min Estimated GFR (MDRD) (>60) mL/min BUN/Creatinine Ratio (14-18) Glucose (83-115) mg/dL Lactic Acid (0.4-2.0) mmol/L Calcium (8.5-10.1) mg/dL Total Bilirubin (0.2-1.0) mg/dL AST (15-37) U/L ALT (16-63) U/L Alkaline Phosphatase (46-116) U/L C-Reactive Protein (<1.0) mg/dL Total Protein (6.4-8.2) g/dl Albumin (3.4-5.0) g/dl Globulin gm/dL Albumin/Globulin Ratio (1-2) Urine Color Light yellow (Yellow) Urine Appearance Clear (Clear) Urine pH 6.0 (5.0-8.0) Ur Specific [place] 1.025 (1.005-1.030) Urine Protein Negative (Negative) Urine Glucose (UA) Negative (Negative) Urine Ketones Negative (Negative) Urine Occult Blood Negative (Negative) Urine Nitrite Negative (Negative) Urine Bilirubin Negative (Negative) Urine Urobilinogen 0.2 (0.2-1.0) Ur Leukocyte Esterase Negative (Negative) Urine RBC 0-5 (0-5) /hpf Urine WBC 0-5 (0-5) /hpf Ur Squamous Epith Cells 0-5 (0-5) /hpf Urine Bacteria Few (FEW) /hpf Urine Mucus Moderate H (FEW) /hpf Vancomycin Trough (10.0-20.0) Mycoplasma pneumon IgM Negative (NEGATIVE) 03/08/20 03/08/20 03/08/20 Range/Units 05:10 05:10 05:45 WBC (4.23-9.07) K/mm3 RBC (4.63-6.08) M/mm3 Hgb (13.7-17.5) gm/dl Hct (40.1-51.0) % MCV (79.0-92.2) fl MCH (25.7-32.2) pg MCHC (32.2-35.5) g/dl RDW Std Deviation (35.1-43.9) fL Plt Count (163-337) K/mm3 MPV (9.4-12.3) fl Neut % (Auto) (34.0-67.9) % Lymph % (Auto) (21.8-53.1) % [place] % (Auto) (5.3-12.2) % Eos % (Auto) (0.8-7.0) Baso % (Auto) (0.1-1.2) % Neut # (Auto) (1.78-5.38) K/mm3 Lymph # (Auto) (1.32-3.57) K/mm3 [place] # (Auto) (0.30-0.82) K/mm3 Eos # (Auto) (0.04-0.54) K/mm3 Baso # (Auto) (0.01-0.08) K/mm3 Sodium 138 (136-145) mEq/L Potassium 3.7 (3.5-5.1) mEq/L Chloride 106 (98-107) mEq/L Carbon Dioxide 25 (21-32) mEq/L Anion Gap 10.7 (5-15) BUN 15 (7-18) mg/dL Creatinine 1.0 (0.7-1.3) mg/dL Est Cr Clr Drug Dosing 62.70 mL/min Estimated GFR (MDRD) > 60 (>60) mL/min BUN/Creatinine Ratio 15.0 (14-18) Glucose 94 (83-115) mg/dL Lactic Acid 1.0 (0.4-2.0) mmol/L Calcium 8.3 L (8.5-10.1) mg/dL Total Bilirubin 1.2 H (0.2-1.0) mg/dL AST 19 (15-37) U/L ALT 25 (16-63) U/L Alkaline Phosphatase 75 (46-116) U/L C-Reactive Protein 19.1 H* (<1.0) mg/dL Total Protein 5.9 L (6.4-8.2) g/dl Albumin 1.9 L (3.4-5.0) g/dl Globulin 4.0 gm/dL Albumin/Globulin Ratio 0.5 L (1-2) Urine Color (Yellow) Urine Appearance (Clear) Urine pH (5.0-8.0) Ur Specific Gary (1.005-1.030) Urine Protein (Negative) Urine Glucose (UA) (Negative) Urine Ketones (Negative) Urine Occult Blood (Negative) Urine Nitrite (Negative) Urine Bilirubin (Negative) Urine Urobilinogen (0.2-1.0) Ur Leukocyte Esterase (Negative) Urine RBC (0-5) /hpf Urine WBC (0-5) /hpf Ur Squamous Epith Cells (0-5) /hpf Urine Bacteria (FEW) /hpf Urine Mucus (FEW) /hpf Vancomycin Trough (10.0-20.0) Mycoplasma pneumon IgM (NEGATIVE) 03/08/ Range/Units 11:20 WBC (4.23-9.07) K/mm3 RBC (4.63-6.08) M/mm3 Hgb (13.7-17.5) gm/dl Hct (40.1-51.0) % MCV (79.0-92.2) fl MCH (25.7-32.2) pg MCHC (32.2-35.5) g/dl RDW Std Deviation (35.1-43.9) fL Plt Count (163-337) K/mm3 MPV (9.4-12.3) fl Neut % (Auto) (34.0-67.9) % Lymph % (Auto) (21.8-53.1) % [place] % (Auto) (5.3-12.2) % Eos % (Auto) (0.8-7.0) Baso % (Auto) (0.1-1.2) % Neut # (Auto) (1.78-5.38) K/mm3 Lymph # (Auto) (1.32-3.57) K/mm3 [place] # (Auto) (0.30-0.82) K/mm3 Eos # (Auto) (0.04-0.54) K/mm3 Baso # (Auto) (0.01-0.08) K/mm3 Sodium (136-145) mEq/L Potassium (3.5-5.1) mEq/L Chloride (98-107) mEq/L Carbon Dioxide (21-32) mEq/L Anion Gap (5-15) BUN (7-18) mg/dL Creatinine (0.7-1.3) mg/dL Est Cr Clr Drug Dosing mL/min Estimated GFR (MDRD) (>60) mL/min BUN/Creatinine Ratio (14-18) Glucose (83-115) mg/dL Lactic Acid (0.4-2.0) mmol/L Calcium (8.5-10.1) mg/dL Total Bilirubin (0.2-1.0) mg/dL AST (15-37) U/L ALT (16-63) U/L Alkaline Phosphatase (46-116) U/L C-Reactive Protein (<1.0) mg/dL Total Protein (6.4-8.2) g/dl Albumin (3.4-5.0) g/dl Globulin gm/dL Albumin/Globulin Ratio (1-2) Urine Color (Yellow) Urine Appearance (Clear) Urine pH (5.0-8.0) Ur Specific Gary (1.005-1.030) Urine Protein (Negative) Urine Glucose (UA) (Negative) Urine Ketones (Negative) Urine Occult Blood (Negative) Urine Nitrite (Negative) Urine Bilirubin (Negative) Urine Urobilinogen (0.2-1.0) Ur Leukocyte Esterase (Negative) Urine RBC (0-5) /hpf Urine WBC (0-5) /hpf Ur Squamous Epith Cells (0-5) /hpf Urine Bacteria (FEW) /hpf Urine Mucus (FEW) /hpf Vancomycin Trough 12.5 (10.0-20.0) Mycoplasma pneumon IgM (NEGATIVE) CHRISTA Results - Last 24 hrs: Microbiology 03/08/20 05:00 Gram Stain - Final Sputum - Expectorated 03/07/20 18:40 Gram Stain - Final Sputum - Expectorated Sputum Culture - Final 03/07/20 19:55 Influenza Type A Antigen Screen - Final Nasal, Unspecified NEGATIVE INFLUENZA A VIRUS AG REFERENCE RANGE: NEGATIVE Influenza Type B Antigen Screen - Final NEGATIVE INFLUENZA B VIRUS AG REFERENCE RANGE: NEGATIVE Med Orders - Current: Current Medications Acetaminophen (Tylenol) 650 mg PO Q4H PRN PRN Reason: Pain (Mild 1-3)/fever Last Admin: 03/07/20 22:58 Dose: 650 mg Documented by: Al Hydroxide/Mg Hydroxide (Mag-Al Plus) 30 ml PO Q4H PRN PRN Reason: heart burn Last Admin: 03/07/20 18:55 Dose: 30 ml Documented by: Albuterol (Proventil Hfa) 0 gm INH Q4H PRN PRN Reason: Shortness of Breath Last Admin: 03/08/20 05:30 Dose: 2 puff Documented by: Aspirin (Aspirin) 81 mg PO DAILY [facility] Last Admin: 03/08/20 09:22 Dose: 81 mg Documented by: Enoxaparin Sodium (Lovenox) 40 mg SUBCUT DAILY [facility] Last Admin: 03/08/20 09:23 Dose: 40 mg Documented by: Piperacillin Sod/Tazobactam (Sod 4.5 gm/ Sodium Chloride) 100 mls @ 25 mls/hr IV Q8H [facility] Last Admin: 03/08/20 05:11 Dose: 25 mls/hr Documented by: Vancomycin HCl 1.75 gm/ Sodium (Chloride) 500 mls @ 250 mls/hr IV Q12H [facility] Levofloxacin (Levaquin) 750 mg PO Q24H [facility] Last Admin: 03/08/20 09:22 Dose: 750 mg Documented by: Lorazepam (Ativan) 0.5 mg PO Q4H PRN PRN Reason: Anxiety Last Admin: 02/28/20 12:19 Dose: 0.5 mg Documented by: Ondansetron HCl (Zofran) 4 mg IV Q4H PRN PRN Reason: Nausea/Vomiting Saccharomyces Boulardii (Florastor) 500 mg PO BID [facility] Last Admin: 03/08/20 09:22 Dose: 500 mg Documented by: Sodium Chloride (Saline Flush) 10 ml FLUSH ASDIRECTED PRN PRN Reason: Keep Vein Open Tamsulosin HCl (Flomax) 0.4 mg PO BEDTIME [facility] Last Admin: 03/07/20 22:14 Dose: 0.4 mg Documented by: Vancomycin HCl (Pharmacy To Dose - Vancomycin) 1 dose .XX ASDIRECTED [facility] Discontinued Medications Aspirin (Aspirin) 81 mg PO BEDTIME [facility] Last Admin: 02/20/20 20:20 Dose: 81 mg Documented by: Aspirin (Aspirin) 81 mg PO BEDTIME [facility] Dexamethasone (Dexamethasone) 6 mg PO Q24H [facility] Stop: 02/28/20 21:01 Last Admin: 02/28/20 20:47 Dose: 6 mg Documented by: Enoxaparin Sodium (Lovenox) 40 mg SUBCUT Q12H [facility] Last Admin: 03/06/20 08:20 Dose: 40 mg Documented by: Furosemide (Lasix) 20 mg IVPUSH NOW ONE Stop: 03/06/20 16:06 Last Admin: 03/06/20 16:09 Dose: 20 mg Documented by: Furosemide (Lasix) 20 mg IVPUSH NOW ONE Stop: 03/07/20 14:01 Last Admin: 03/07/20 13:57 Dose: 20 mg Documented by: Remdesivir 200 mg/ Sodium (Chloride) 250 mls @ 250 mls/hr IV ONETIME ONE Stop: 02/19/20 21:59 Last Admin: 02/19/20 22:02 Dose: 250 mls/hr Documented by: Remdesivir 100 mg/ Sodium (Chloride) 100 mls @ 100 mls/hr IV Q24H [facility] Stop: 02/23/20 21:59 Last Admin: 02/23/20 21:04 Dose: 100 mls/hr Documented by: Sodium Chloride (Normal Saline) 100 mls @ 25 mls/hr IV ASDIRECTED [facility] Last Admin: 02/19/20 23:46 Dose: 25 mls/hr Documented by: Azithromycin 500 mg/ Sodium (Chloride) 250 mls @ 250 mls/hr IV Q24H [facility] Stop: 02/22/20 22:59 Last Admin: 02/22/20 22:20 Dose: 250 mls/hr Documented by: Ceftriaxone Sodium 2 gm/ (Sodium Chloride) 100 mls @ 200 mls/hr IV Q24H [facility] Stop: 02/24/20 22:29 Last Admin: 02/24/20 21:26 Dose: 200 mls/hr Documented by: Piperacillin Sod/Tazobactam (Sod 4.5 gm/ Sodium Chloride) 100 mls @ 200 mls/hr IV ONETIME ONE Stop: 02/26/20 10:29 Last Admin: 02/26/20 09:58 Dose: 200 mls/hr Documented by: Piperacillin Sod/Tazobactam (Sod 4.5 gm/ Sodium Chloride) 100 mls @ 25 mls/hr IV Q8H [facility] Last Admin: 02/27/20 02:59 Dose: 25 mls/hr Documented by: Vancomycin HCl 1.75 gm/ Sodium (Chloride) 500 mls @ 250 mls/hr IV ONETIME ONE Stop: 02/26/20 12:29 Last Admin: 02/26/20 11:48 Dose: 250 mls/hr Documented by: Vancomycin HCl 1 gm/Vancomycin HCl 250 mg/ Sodium Chloride 250 mls @ 166.667 mls/hr IV Q12H [facility] Last Admin: 02/26/20 22:51 Dose: 166.667 mls/hr Documented by: Vancomycin HCl 1.75 gm/ Sodium (Chloride) 500 mls @ 250 mls/hr IV ONETIME ONE Stop: 03/05/20 10:59 Last Admin: 03/05/20 08:55 Dose: 250 mls/hr Documented by: Levofloxacin/Dextrose 750 mg/ (Premix) 150 mls @ 100 mls/hr IV Q24H [facility] Last Admin: 03/06/20 10:04 Dose: 100 mls/hr Documented by: Vancomycin HCl 1 gm/Vancomycin HCl 250 mg/ Sodium Chloride 250 mls @ 166.667 mls/hr IV Q12H [facility] Last Admin: 03/06/20 08:21 Dose: 166.667 mls/hr Documented by: Sodium Chloride (Normal Saline) 100 mls @ 60 mls/hr IV ASDIRECTED [facility] Last Admin: 03/06/20 12:00 Dose: 60 mls/hr Documented by: Vancomycin HCl 1 gm/Vancomycin HCl 500 mg/ Sodium Chloride 500 mls @ 333.333 mls/hr IV Q12H [facility] Last Admin: 03/06/20 23:09 Dose: Not Given Documented by: Vancomycin HCl 1 gm/Vancomycin HCl 500 mg/ Sodium Chloride 500 mls @ 333.333 mls/hr IV Q12H [facility] Last Admin: 03/07/20 22:54 Dose: 333.333 mls/hr Documented by: Piperacillin Sod/Tazobactam (Sod 4.5 gm/ Sodium Chloride) 100 mls @ 200 mls/hr IV ONETIME ONE Stop: 03/07/20 20:25 Last Admin: 03/07/20 22:07 Dose: 200 mls/hr Documented by: Sodium Chloride (Normal Saline) 250 mls @ 250 mls/hr IV ONETIME ONE Stop: 03/08/20 02:59 Last Admin: 03/08/20 02:14 Dose: 250 mls/hr Documented by: Sodium Chloride (Normal Saline) 250 mls @ 250 mls/hr IV ONETIME ONE Stop: 03/08/20 04:38 Last Admin: 03/08/20 03:57 Dose: 250 mls/hr Documented by: Iopamidol (Isovue-370 (76%)) 100 ml IVPUSH ONETIME ONE Stop: 03/06/20 12:52 Last Admin: 03/06/20 12:00 Dose: 100 ml Documented by: Levofloxacin (Levaquin) 750 mg PO Q24H [facility] Last Admin: 02/26/20 09:57 Dose: 750 mg Documented by: Magnesium Hydroxide (Milk Of Magnesia) 30 ml PO ONETIME ONE Stop: 02/27/20 09:01 Last Admin: 02/27/20 08:38 Dose: 30 ml Documented by: Magnesium Hydroxide (Milk Of Magnesia) 30 ml PO ONETIME ONE Stop: 03/08/20 05:01 Last Admin: 03/08/20 05:11 Dose: 30 ml Documented by: Sodium Chloride (Saline Flush) 10 ml FLUSH ONETIME ONE Stop: 03/06/20 12:52 Last Admin: 03/06/20 12:00 Dose: 10 ml Documented by: Vancomycin HCl (Pharmacy To Dose - Vancomycin) 1 dose .XX ASDIRECTED PRN PRN Reason: RX TO DOSE VANCO Vancomycin HCl (Vancomycin) Confirm Administered Dose 2 gm .ROUTE .STK-MED ONE Stop: 03/05/20 08:46 Last Admin: 03/05/20 08:57 Dose: 1 gm Documented by: - Exam Quality Assessment: Reports: Supplemental Oxygen (High flow nasal cannula) General: Reports: Alert, Oriented HEENT: Reports: Pupils Equal, Mucous Membr. Moist/Lares Neck: Reports: Supple Lungs: Reports: Rales (Throughout both lung mondragon). Denies: Normal Respiratory Effort (Increased respiratory rate and effort) Cardiovascular: Reports: Regular Rate, Regular Rhythm GI/Abdominal Exam: Normal Bowel Sounds, Soft, Non-Tender, No Organomegaly, No Distention, No Abnormal Bruit Extremities: Normal Inspection, Normal Range of Motion, Non-Tender, No Pedal Edema, Normal Capillary Refill Psy/Mental Status: Reports: Alert, Normal Affect, Normal Mood
[2020-03-08] MEDS ORDERED: Vancomycin 1.75 GM in Sodium Chloride 0.9% 500 ML IV SCH (13:00)
[2020-03-08 19:42] LABS: BORDETELLA PARAPERT IS1001 Not Detected (Not Detected)
== END 2020-03-08 15:38 | DRG 177 ==
LOC: JD.ED 16:24 → JD.MS 17:16 → UNDOADMIN 17:16 → JD.MS 17:59 → JD.ICU 02-25 10:25 → JD.MS 02-25 10:25 → JD.ICU 02-26 09:28 → JD.MS 02-26 09:28 → UNDODISIN 03-08 15:38
PROVIDERS: ADMIT Family Medicine; ATTEND Family Medicine
PROC: 5A09557 Assistance with Respiratory Ventilation, Greater than 96 Consecutive Hours, Continuous Positive Airway Pressure (ICD-10-PCS; principal; 2020-02-20)
PROC: 8E0ZXY6 Isolation (ICD-10-PCS; 2020-02-20)
PROC: XW033E5 Introduction of Remdesivir Anti-infective into Peripheral Vein, Percutaneous Approach, New Technology Group 5 (ICD-10-PCS; 2020-02-20)
PROC: XW13325 Transfusion of Convalescent Plasma (Nonautologous) into Peripheral Vein, Percutaneous Approach, New Technology Group 5 (ICD-10-PCS; 2020-02-20)
DX: U07.1 COVID-19 (principal); J12.89 Other viral pneumonia; R06.03 Acute respiratory distress; E88.09 Other disorders of plasma-protein metabolism, not elsewhere classified; Z79.82 Long term (current) use of aspirin; Z79.899 Other long term (current) drug therapy; Z99.81 Dependence on supplemental oxygen; Z88.5 Allergy status to narcotic agent; H54.7 Unspecified visual loss; K21.9 Gastro-esophageal reflux disease without esophagitis; M19.90 Unspecified osteoarthritis, unspecified site; F41.9 Anxiety disorder, unspecified; F32.9 Major depressive disorder, single episode, unspecified; F43.10 Post-traumatic stress disorder, unspecified; I10 Essential (primary) hypertension; R06.02 Shortness of breath; R53.83 Other fatigue
CPT/HCPCS: 36415; 36430; 36600; 71045; 71045-26; 71046; 71046-26; 71275; 71275-26; 80048; 80053; 80202; 81001; 82728; 82803; 83605; 83615; 83735; 83880; 84100; 84145; 84484; 85025; 85027; 85379; 85610; 85730; 86140; 86738; 86900; 86901; 87040; 87070; 87102; 87205; 87486; 87581; 87633; 87798; 87804; 87899; 93005; 93010; 93306; 94640; 94660; 94668; 94760; 94761; 94762; 99215; 99222; 99231; 99232; 99233; 99239; A9270-GY; J0456; J0696; J1650; J1940; J1956; J2543; J3370; J7040; J7050; J8540; P9017; Q9967

== ENCOUNTER 2022-03-27 12:20 | Emergency (ER) | payer MEDICARE, OTHER ==
[2022-03-27] MEDS ORDERED: Furosemide 40 MG/4 ML VIAL IVPUSH ONE (13:15)
[2022-03-27] MEDS ORDERED: Iopamidol 612 MG/ML 100 ML Bottle IVPUSH ONE (16:27)
[2022-03-27] MEDS ORDERED: Sodium Chloride 0.9% 10 ML Syringe FLUSH ONE (16:27)
[2022-03-27] MEDS ORDERED: HYDROmorphone 0.5 MG/0.5 ML Syringe IVPUSH ONE (16:37)
[2022-03-27] MEDS ORDERED: Ondansetron 4 MG/2 ML SDV IVPUSH ONE (16:37)
[2022-03-27 19:44] VITALS: BP 146/96; PULSE 77
== END 2022-03-27 18:15 | disposition home or self-care (01) ==
LOC: JD.ED 12:20
DX: R06.02 Shortness of breath (principal); R60.0 Localized edema; G83.89 Other specified paralytic syndromes; R94.31 Abnormal electrocardiogram [ECG] [EKG]; M19.90 Unspecified osteoarthritis, unspecified site; E66.9 Obesity, unspecified; Z68.36 Body mass index [BMI] 36.0-36.9, adult; Z79.82 Long term (current) use of aspirin; Z79.899 Other long term (current) drug therapy
CPT/HCPCS: 36415; 71045; 71260; 80053; 82553; 83735; 83880; 84484; 85025; 85610; 85730; 86140; 93005; 96374; 99285; J1940; J3490; Q9967

== ENCOUNTER 2022-03-29 11:49 | Emergency (ER) | payer MEDICARE, OTHER ==
[2022-03-29] MEDS ORDERED: Albuterol/Ipratropium 3.0-0.5 MG/3 ML Neb Soln NEB ONE (12:31)
[2022-03-29 13:59] VITALS: BP 105/73; PULSE 82
== END 2022-03-29 13:55 | disposition home or self-care (01) ==
LOC: JD.ED 11:49
DX: J18.9 Pneumonia, unspecified organism (principal); U09.9 Post COVID-19 condition, unspecified; G83.89 Other specified paralytic syndromes; M19.90 Unspecified osteoarthritis, unspecified site; E66.9 Obesity, unspecified; Z68.38 Body mass index [BMI] 38.0-38.9, adult; Z79.82 Long term (current) use of aspirin; Z79.899 Other long term (current) drug therapy
CPT/HCPCS: 99284

== ENCOUNTER 2023-10-30 00:18 | Emergency (ER) | payer MEDICARE, OTHER ==
[2023-10-30] MEDS: Lidocaine/Epineph/Tetracaine 3 ML Syringe TOP ONE (01:25)
[2023-10-30] MEDS: Lidocaine 2% with EPINEPHrine 1:100,000 20 ML MDV INJECT ONE (01:25)
[2023-10-30 01:44] LABS: BASOPHILS PERCENT AUTO 0.3 % (0.0-1.0); EOSINOPHILS ABSOLUTE AUTO 0.2 K/mm3 (0.0-0.4); EOSINOPHILS PERCENT AUTO 2.2 % (0.0-6.0); HEMATOCRIT 41.3 % (42.0-52.0); HEMOGLOBIN 13.4 gm/dl (14.0-18.0); IMMATURE GRAN ABSOLUTE AUTO 0.02 K/mm3 (0.00-0.05); IMMATURE GRAN PERCENT AUTO 0.3 % (0.0-0.4); LYMPHOCYTES ABSOLUTE AUTO 1.1 K/mm3 (1.0-4.8); LYMPHOCYTES PERCENT AUTO 15.1 % (24.0-44.0); MEAN CORPUSCULAR HEMOGLOBIN 31.1 pg (28.0-32.0); MEAN CORPUSCULAR HGB CONC 32.4 g/dl (32.0-36.0); MEAN CORPUSCULAR VOLUME 95.8 fl (83.0-99.0); MEAN PLATELET VOLUME 9.2 fl (9.4-12.4); MONOCYTES ABSOLUTE AUTO 0.9 K/mm3 (0.0-0.8); MONOCYTES PERCENT AUTO 12.4 % (0.0-8.0); NEUTROPHILS ABSOLUTE AUTO 5.2 K/mm3 (1.8-7.7); NEUTROPHILS PERCENT AUTO 69.7 % (41.0-71.0); PLATELET COUNT,PLT 124 K/mm3 (150-400); RED BLOOD CELL COUNT 4.31 M/mm3 (4.52-5.90); WHITE BLOOD CELL COUNT,WBC 7.42 K/mm3 (3.9-11.3)
[2023-10-30 02:10] LABS: A/G RATIO 1.1 (1-2); ALBUMIN 3.4 g/dl (3.4-5.0); ANION GAP 12.2 (5-15); BILIRUBIN TOTAL 0.7 mg/dL (0.2-1.0); BUN/CREATININE RATIO 15.8 (14-18); CALCIUM 8.8 mg/dL (8.5-10.1); CREATININE 1.2 mg/dL (0.7-1.3); EST CRCL DRUG DOSING (CG) 49.88 mL/min; MAGNESIUM 2.1 mg/dL (1.8-2.4); POTASSIUM,K 4.2 mEq/L (3.5-5.1); PROTEIN TOTAL,TP 6.4 g/dl (6.4-8.2)
[2023-10-30 03:55] LABS: APPEARANCE,URINE CLEAR (Clear); BILIRUBIN,URINE NEGATIVE (Negative); COLOR,URINE YELLOW (Yellow); GLUCOSE,URINE NEGATIVE (Negative); KETONES,URINE NEGATIVE (Negative); LEUKOCYTE ESTERASE,URINE NEGATIVE (Negative); NITRITE,URINE NEGATIVE (Negative); OCCULT BLOOD,URINE NEGATIVE (Negative); PROTEIN,URINE NEGATIVE (Negative); UROBILINOGEN,URINE 0.2 (0.2-1.0)
[2023-10-30 04:08] VITALS: BP 126/93; PULSE 88
== END 2023-10-30 04:06 | disposition home or self-care (01) ==
LOC: JD.ED 00:18
DX: S01.81XA Laceration without foreign body of other part of head, initial encounter (principal); I49.3 Ventricular premature depolarization; U07.1 COVID-19; Z86.16 Personal history of COVID-19; X58.XXXA Exposure to other specified factors, initial encounter
CPT/HCPCS: 12013; 36415; 70486; 80053; 81003; 83735; 84484; 85025; 93005; 99284; A9270; J3490